=== PATIENT | female | born 1950 | race Caucasian/White ===

== ENCOUNTER → 2016-04-25 | Outpatient (REF) | payer MEDICARE, OTHER ==
[~2016-04-25] MED LIST: /GLIM2TA; ALDA50TA2; CELE10TA; CELE10TA OR; CEPH25SS PO; FERROUS GLUCONATE PO; FLEEENE4 PR; GLIM1TAB OR; INSULANT; INSULANT SC; LASI40TA; LASI40TA OR; LASI80TA; NADO40TA5 OR; PROT20TA11; PROT20TA11 OR; SPIR50TA2 OR; VITA400C; VITA500T; VITA500T OR; VITAMIN D PO; VITAMIN D50000 UNT; VITAMIN E PO; XIFAXAN; XIFAXAN PO; [UNRECOGNIZED DRUG - CODE]; ferrous gluconate
[2016-04-25 18:33] LABS: ALBUMIN 3.4 GM/DL (3.2-5.2); ALBUMIN/GLOBULIN RATIO 1.26 (1.00-1.93); ALKALINE PHOSPHATASE 104 U/L (45-117); ALT/SGPT 36 U/L (12-78); ANION GAP 10 MEQ/L (8-16); AST/SGOT 31 U/L (15-37); BILIRUBIN,TOTAL 1.8 MG/DL (0.2-1.0); BLOOD UREA NITROGEN 9 MG/DL (7-18); CALCIUM LEVEL 8.8 MG/DL (8.8-10.2); CARBON DIOXIDE LEVEL 29 MEQ/L (21-32); CHLORIDE LEVEL 103 MEQ/L (98-107); CHOLESTEROL LEVEL 176 MG/DL (<200); CREATININE FOR GFR 0.85 MG/DL (0.55-1.02); GLOMERULAR FILTRATION RATE > 60.0 (>45); GLUCOSE, FASTING 176 MG/DL (80-110); POTASSIUM SERUM 4.1 MEQ/L (3.5-5.1); SODIUM LEVEL 142 MEQ/L (136-145); TOTAL PROTEIN 6.1 GM/DL (6.4-8.2); TRIGLYCERIDES LEVEL 94 MG/DL (<150)
== END ==
LOC: M SFHCCLAY 10:38
PROVIDERS: ATTEND Family Medicine
DX: K74.60 Unspecified cirrhosis of liver (principal); E07.9 Disorder of thyroid, unspecified; E11.65 Type 2 diabetes mellitus with hyperglycemia

== ENCOUNTER → 2016-07-24 | Outpatient (CLI) | payer MEDICARE, OTHER ==
--- NOTE | 2016-07-24 12:10 | REP ---
COMPLETE ABDOMINAL SONOGRAPHY WITH UPPER ABDOMINAL VISCERAL DOPPLER ASSESSMENT: HISTORY: Cirrhosis. Portal hypertension. FINDINGS: Scanning through right upper quadrant of the abdomen shows a coarse texture nodular appearing liver without evidence of hepatic mass lesion. Common bile duct is normal measuring 0.7 cm in greatest diameter. A TIPS shunt is visible in the liver. Aneurysmal dilation of the main portal vein is again seen measuring 4.0 x 3.4 cm transverse. Limited views of the pancreas show no abnormality. The spleen is enlarged measuring 15.8 x 16.3 x 9.0 cm. It contains a few calcifications. There is some vascular calcification in the splenic hilus. Renal cortical echogenicity pattern is normal and contours are smooth bilaterally. Right kidney measures 10.9 x 4.8 x 4.6 cm. Left renal dimensions are 12.2 x 4.2 x 4.2 cm. Normal caliber aorta is seen at the bifurcation 2.6 cm. The aorta is obscured more proximally. There is a trace of free fluid adjacent the left lobe of the liver. Scan quality is inhibited to some degree by patient body habitus and limited scanning windows. VISCERAL DOPPLER ASSESSMENT: Hepatic veins are not well visualized secondary to patient body habitus. The normal direction of visceral venous flow is seen. Splenic vein peak flow velocity is 25.4 cm/s. Superior mesenteric vein flow velocity is 23.1 cm/s. Venous velocity in the main portal vein is measured at 38.9 cm/s. Peak systolic flow velocity in the hepatic artery is measured at 117 0.3 cm/s. Flow is observed in the TIPS consistent with patency. The proximal tips flow velocity is slightly higher than previous and 72.6 cm/s, previously 51 cm/s. At mid shunt, TIPS flow velocity is recorded at 143.0 cm/s, previously 165. The distal tips flow velocity today is 181.4 cm/s, previously 115. IMPRESSION: TIPS is patent with slightly elevated flow velocities as above. A main portal vein aneurysm is again noted unchanged. Signed by Bon Wells MD 07/24/2016 03:38 P
== END ==
LOC: M RAD 09:16
PROVIDERS: ATTEND Internal Medicine Gastroenterology
DX: K74.60 Unspecified cirrhosis of liver (principal); K76.6 Portal hypertension; I86.8 Varicose veins of other specified sites

== ENCOUNTER → 2016-07-25 | Outpatient (REF) | payer MEDICARE, OTHER ==
[2016-07-25 12:47] LABS: INR 1.12
[2016-07-25 12:53] LABS: BASO % 0.8 % (0.0-1.0); EOS # 0.3 K/mm3 (0.0-0.50); EOS % 6.7 % (0.0-3.0); LARGE UNSTAINED CELL % 0.9 % (0.0-4.0); LYMPH # 0.5 K/mm3 (1.5-4.5); LYMPH % 9.7 % (24.0-44.0); MEAN CORPUSCULAR HGB CONC 34.6 g/dl (32.0-36.5); MEAN CORPUSCULAR VOLUME 83.9 fl (80.0-96.0); MONO # 0.3 K/mm3 (0.0-0.8); NEUTROPHILS # 3.6 K/mm3 (1.8-7.7); NEUTROPHILS % 75.8 % (36.0-66.0); RED CELL DISTRIBUTION WIDTH 16.1 % (11.5-14.5); WHITE BLOOD COUNT 4.7 K/mm3 (4.0-10.0)
[2016-07-25 13:02] LABS: PLATELET COUNT, AUTOMATED 74 k/mm3 (150-450)
[2016-07-25 13:04] LABS: ADD MORPHOLOGY? NO
[2016-07-25 14:02] LABS: ALBUMIN 3.5 GM/DL (3.2-5.2); ALBUMIN/GLOBULIN RATIO 1.4 (1.00-1.93); BILIRUBIN,DIRECT 0.6 MG/DL (0.0-0.2); BILIRUBIN,TOTAL 1.7 MG/DL (0.2-1.0); CALCIUM LEVEL 9.2 MG/DL (8.8-10.2); CREATININE FOR GFR 1.03 MG/DL (0.55-1.02); GLOMERULAR FILTRATION RATE 57.3 (>45); PHOSPHORUS LEVEL 2.3 MG/DL (2.5-4.9); POTASSIUM SERUM 3.8 MEQ/L (3.5-5.1)
== END ==
LOC: M LABDRAWC 11:45
PROVIDERS: ATTEND Internal Medicine Gastroenterology
DX: K74.60 Unspecified cirrhosis of liver (principal)

== ENCOUNTER → 2016-10-02 | Outpatient (CLI) | payer MEDICARE, OTHER ==
--- NOTE | 2016-10-02 15:04 | REPMRS ---
Patient History The patient states she had a clinical breast exam in 09/2016. Patient is postmenopausal. Family history of breast cancer in maternal aunt at age 62 and colorectal cancer in maternal cousin at age 42. Taking estrogen for 12 years. Digital Woman Screen Mammo: October 02, 2016 - Exam #: [id number] Bilateral CC and MLO view(s) were taken. Technologist: Lynn Gonzalez, Technologist Prior study comparison: September 28, 2015, digital woman screen mammo performed at [facility]. July 06, 2014, bilateral digital mammo screening bilat, performed at [facility]. May 20, 2013, bilateral digital mammo screening bilat, performed at [facility]. FINDINGS: There are scattered fibroglandular densities. There has been no change in the appearance of the mammogram from the prior studies. There is a mild amount of scattered fibroglandular density which is fairly symmetric. There is no interval development of dominant mass, architectural distortion, or clustered microcalcification suggestive of malignancy. ASSESSMENT: BI-RADS/ACR category 1 mammogram. Negative. Recommendation Routine screening mammogram in 1 year (for women over age 40). This mammogram was interpreted with the aid of an FDA-approved computer-aided dectection system. Electronically Signed By: Tima Wells MD 10/02/16 [id number]
== END ==
LOC: M WHC 12:53
PROVIDERS: ATTEND Advanced Practice Midwife
DX: Z12.31 Encounter for screening mammogram for malignant neoplasm of breast (principal)

== ENCOUNTER → 2016-10-16 | Outpatient (REF) | payer MEDICARE, OTHER ==
[2016-10-16 18:16] LABS: ALBUMIN 3.4 GM/DL (3.2-5.2); ALBUMIN/GLOBULIN RATIO 1.21 (1.00-1.93); ALKALINE PHOSPHATASE 119 U/L (45-117); ALT/SGPT 26 U/L (12-78); ANION GAP 9 MEQ/L (8-16); AST/SGOT 30 U/L (15-37); BILIRUBIN,TOTAL 1.9 MG/DL (0.2-1.0); BLOOD UREA NITROGEN 9 MG/DL (7-18); CALCIUM LEVEL 8.6 MG/DL (8.8-10.2); CARBON DIOXIDE LEVEL 28 MEQ/L (21-32); CHLORIDE LEVEL 105 MEQ/L (98-107); CHOLESTEROL LEVEL 178 MG/DL (<200); CREATININE FOR GFR 0.92 MG/DL (0.55-1.02); GLOMERULAR FILTRATION RATE > 60.0 (>45); GLUCOSE, FASTING 106 MG/DL (80-110); POTASSIUM SERUM 3.6 MEQ/L (3.5-5.1); SODIUM LEVEL 142 MEQ/L (136-145); TOTAL PROTEIN 6.2 GM/DL (6.4-8.2); TRIGLYCERIDES LEVEL 88 MG/DL (<150)
[2016-10-16 18:32] LABS: BASO # 0.1 K/mm3 (0.0-0.2); BASO % 0.8 % (0.0-1.0); EOS # 0.4 K/mm3 (0.0-0.50); EOS % 6.1 % (0.0-3.0); LARGE UNSTAINED CELL # 0.1 K/mm3 (0.0-0.4); LARGE UNSTAINED CELL % 1.1 % (0.0-4.0); LYMPH # 0.7 K/mm3 (1.5-4.5); LYMPH % 10.2 % (24.0-44.0); MEAN CORPUSCULAR HEMOGLOBIN 29.4 pg (27.0-33.0); MEAN CORPUSCULAR VOLUME 84.2 fl (80.0-96.0); MONO # 0.4 K/mm3 (0.0-0.8); MONO % 5.9 % (0.0-5.0); NEUTROPHILS # 5.4 K/mm3 (1.8-7.7); PLATELET COUNT, AUTOMATED 112 k/mm3 (150-450); RED CELL DISTRIBUTION WIDTH 16.4 % (11.5-14.5); WHITE BLOOD COUNT 7.1 K/mm3 (4.0-10.0)
[2016-10-16 22:12] LABS: ADD MORPHOLOGY? YES
[2016-10-16 22:13] LABS: ANISOCYTOSIS 2+; MICROCYTOSIS 1+
== END ==
LOC: M SFHCCLAY 10:55
PROVIDERS: ATTEND Family Medicine
DX: K74.60 Unspecified cirrhosis of liver (principal); E11.65 Type 2 diabetes mellitus with hyperglycemia; E07.9 Disorder of thyroid, unspecified; N39.0 Urinary tract infection, site not specified
CPT/HCPCS: 80053; 80061; 81002; 82140; 83036; 84443; 85025; 87088; 87186; G0463

== ENCOUNTER → 2016-10-23 | Outpatient (REF) | payer MEDICARE, OTHER | LOC: M SFHCCLAY 14:22 | PROVIDERS: ATTEND Family Medicine | DX: R30.0 Dysuria (principal); Z53.8 Procedure and treatment not carried out for other reasons ==

== ENCOUNTER → 2016-12-17 | Outpatient (REF) | payer MEDICARE, OTHER ==
[~2016-12-17] MED LIST changes: +ESTR1CRE PV; +INSUH10VL SC; +KETO2CR TOP; +LACT10SO3 PO; +TRES1INJ SC
== END ==
LOC: M SFHCCLAY 10:31
PROVIDERS: ATTEND Family Medicine
DX: N39.0 Urinary tract infection, site not specified (principal)
CPT/HCPCS: 81002; 87086; G0463

== ENCOUNTER → 2017-01-01 | Outpatient (REF) | payer MEDICARE, OTHER ==
[2017-01-04 00:08] LABS: Candida species Negative (Negative); Gardnerella vaginalis Negative (Negative); Trichamonas vaginalis Negative (Negative)
== END ==
LOC: M SMT 17:01
PROVIDERS: ATTEND Nurse Practitioner Women's Health
DX: R30.0 Dysuria (principal)
CPT/HCPCS: 81001; 87086; 87109; 87480; 87510; 87660; G0463

== ENCOUNTER → 2017-01-15 | Outpatient (CLI) | payer MEDICARE, OTHER ==
--- NOTE | 2017-01-15 12:07 | REP ---
COMPLETE ABDOMINAL SONOGRAPHY AND HEPATIC VISCERAL DOPPLER ASSESSMENT: History: Cirrhosis of the liver with alcohol. Portal hypertension. Comparison sonography July 24, 2016. The most recent prior CT study of the abdomen is from May 22, 2010. The patient has a TIPS shunt. Findings: Image quality is technically quite poor. No focal liver lesion is seen. The liver is not well visualized sonographically. Common bile duct is normal at 0.9 cm in greatest diameter post cholecystectomy. The spleen is mildly enlarged measuring 15 x 14.7 x 9.4 cm. No focal splenic lesion is seen. No ascites is seen. Medial to the spleen in the left upper quadrant in the region of the stomach is a possible mass. Gastric wall thickening is a possibility although no peristalsis was seen. This is incompletely visualized. It appears to be above the kidney. Consider CT. A main portal vein aneurysm is seen just above the rochelle splenic confluence as before. This measures 6.9 x 5.0 x 4.1 cm. Renal cortical echogenicity pattern is normal and contours are smooth bilaterally. The right kidney measures 10.4 x 6.8 x 5.4 cm. Left renal dimensions are 12.6 x 5.1 x 6.0 cm. Visceral Doppler flow assessment: The non-aneurysmal segment main portal vein is 21 mm. The TIPS shunt is patent by color Doppler and spectral Doppler interrogation with main portal vein end of the TIPS shunt flow velocity 122 cm/sec, mid shunt velocity 127 cm/sec, and hepatic vein and flow velocity 103 cm/sec. This appears to be stable from priors. Main portal vein aneurysm may be slightly larger. Scan quality is inhibited. Peak systolic flow velocity in the hepatic artery is recorded at 113 cm/sec. Resistive index is 0.8. Portal vein flow velocity 36 cm/sec. Splenic vein flow velocity 25 cm/sec. Other hepatic vessels could not be assessed technically. Impression: 1. Technically poor image quality. TIPS shunt remains patent and stable. There is a 6.9 cm main portal vein aneurysm again seen. 2. Question mass left upper quadrant medial to the spleen and above the kidney versus gastric wall thickening. Consider repeat CT study. Signed by Bon Wells MD 01/15/2017 05:28 P
== END ==
LOC: M RAD 08:41
PROVIDERS: ATTEND Internal Medicine Gastroenterology
DX: K76.6 Portal hypertension (principal); K74.60 Unspecified cirrhosis of liver

== ENCOUNTER 2017-02-18 08:32 | Day surgery (SDC) | payer MEDICARE, OTHER ==
[~2017-02-18] VITALS: Ht 167.6 cm; Wt 127.0 kg
[2017-02-18] MEDS ORDERED: NS 1,000 ML IV ONE (08:45)
[2017-02-18] MEDS ORDERED: LIDOCAINE 2% INJ 100 MG/5 ML SDV (FOR ANES.) As Ordered ONE (10:15)
[2017-02-18] MEDS ORDERED: PROPOFOL 200 MG/20 ML VIAL As Ordered ONE (10:15)
--- NOTE | 2017-02-18 10:35 | ROOR ---
Patient Name: Bakari Garcia Procedure Date: 02/18/2017 10:10 AM Date of : 1950 Age: 66 Room: [facility] Gender: Female Note Status: Finalized Procedure: Upper Endoscopy + Endoloop +Biopsies Indications: Abnormal CT of the GI tract, Abnormal ultrasound of the GI tract Providers: Vishal Ruiz MD Referring MD: ELSA FELIPE DO Requesting Provider: Medicines: Monitored Anesthesia Care Complications: No immediate complications. Procedure: Pre-Anesthesia Assessment: - The heart rate, respiratory rate, oxygen saturations, blood pressure, adequacy of pulmonary ventilation, and response to care were monitored throughout the procedure. The Endoscope was introduced through the mouth, and advanced to the second part of duodenum. The upper GI endoscopy was accomplished without difficulty. The patient tolerated the procedure well. Findings: The Z-line was regular and was found 35 cm from the incisors. A single medium pedunculated and sessile polyp with no bleeding and no stigmata of recent bleeding was found in the cardia. One ligature was successfully placed. This was done to prevent bleeding. Biopsies were taken with a cold forceps for histology. Moderate portal hypertensive gastropathy was found in the entire examined stomach. The exam of the duodenum was otherwise normal. Impression: - Z-line regular, 35 cm from the incisors. - A single gastric polyp. Ligated. Biopsied. - Portal hypertensive gastropathy. - The examination was otherwise normal. Recommendation: - Await pathology results. Vishal Ruiz MD Vishal Ruiz MD 02/18/2017 10:35:28 AM This report has been signed electronically. Number of Addenda: 0 Note Initiated On: 02/18/2017 10:10 AM Estimated Blood Loss: Estimated blood loss: none.
[2017-02-18 10:55] VITALS: BP 108/58
== END 2017-02-18 11:07 | disposition home or self-care (01) ==
LOC: M OPP 08:32
PROVIDERS: ATTEND Internal Medicine Gastroenterology
DX: K31.7 Polyp of stomach and duodenum (principal); K31.89 Other diseases of stomach and duodenum; I85.00 Esophageal varices without bleeding; R93.3 Abnormal findings on diagnostic imaging of other parts of digestive tract; K74.69 Other cirrhosis of liver; E11.9 Type 2 diabetes mellitus without complications; R01.1 Cardiac murmur, unspecified; I10 Essential (primary) hypertension; F41.9 Anxiety disorder, unspecified; M54.9 Dorsalgia, unspecified; Z79.4 Long term (current) use of insulin; Z79.899 Other long term (current) drug therapy

== ENCOUNTER → 2017-05-03 | Outpatient (REF) | payer MEDICARE, OTHER | LOC: M SFHCCLAY 11:09 | DX: D69.6 Thrombocytopenia, unspecified (principal); E11.65 Type 2 diabetes mellitus with hyperglycemia; K74.60 Unspecified cirrhosis of liver; E07.9 Disorder of thyroid, unspecified; Z53.9 Procedure and treatment not carried out, unspecified reason ==

== ENCOUNTER → 2017-05-06 | Outpatient (REF) | payer MEDICARE, OTHER ==
[2017-05-06 17:32] LABS: AMMONIA 132 uMOL/L (<32)
[2017-05-06 17:36] LABS: BASO # 0.1 10^3/uL (0.0-0.2); BASO % 0.9 % (0.0-1.0); EOS # 0.5 10^3/uL (0.0-0.50); EOS % 9.7 % (0.0-3.0); HEMATOCRIT 35.2 % (36.0-47.0); HEMOGLOBIN 12.1 g/dl (12.0-16.0); IMMATURE GRANULOCYTE % 0.2 % (0-0); LYMPH # 0.6 10^3/uL (1.5-4.5); LYMPH % 11.7 % (24.0-44.0); MEAN CORPUSCULAR HGB CONC 34.4 g/dl (32.0-36.5); MEAN CORPUSCULAR VOLUME 84.4 fl (80.0-96.0); MONO # 0.3 10^3/uL (0.0-0.8); MONO % 6.3 % (0.0-5.0); NEUTROPHILS # 3.8 10^3/uL (1.8-7.7); NEUTROPHILS % 71.2 % (36.0-66.0); RED BLOOD COUNT 4.17 10^6/uL (4.00-5.40); RED CELL DISTRIBUTION WIDTH 15.8 % (11.5-14.5); WHITE BLOOD COUNT 5.3 10^3/uL (4.0-10.0)
[2017-05-06 17:39] LABS: ALBUMIN 3.4 GM/DL (3.2-5.2); ALBUMIN/GLOBULIN RATIO 1.31 (1.00-1.93); ALKALINE PHOSPHATASE 100 U/L (45-117); ALT/SGPT 22 U/L (12-78); ANION GAP 6 MEQ/L (8-16); AST/SGOT 31 U/L (7-37); BILIRUBIN,TOTAL 1.7 MG/DL (0.2-1.0); BLOOD UREA NITROGEN 10 MG/DL (7-18); CALCIUM LEVEL 8.7 MG/DL (8.8-10.2); CARBON DIOXIDE LEVEL 32 MEQ/L (21-32); CHLORIDE LEVEL 106 MEQ/L (98-107); CHOLESTEROL LEVEL 171 MG/DL (<200); CREATININE FOR GFR 0.88 MG/DL (0.55-1.30); GLOMERULAR FILTRATION RATE > 60.0 (>45); GLUCOSE, FASTING 116 MG/DL (70-100); HDL CHOLESTEROL 83 MG/DL (>40); LDL CHOLESTEROL 73.4 MG/DL (<100); NON-HDL-C 88 MG/DL; SODIUM LEVEL 144 MEQ/L (136-145); TRIGLYCERIDES LEVEL 73 MG/DL (<150)
[2017-05-06 17:40] LABS: ESTIMATED AVERAGE GLUCOSE 154 MG/DL (60-110)
[2017-05-06 17:50] LABS: PLATELET COUNT, AUTOMATED 75 10^3/uL (150-450)
[2017-05-06 18:14] LABS: PARTIAL THROMBOPLASTIN TIME 33.6 SECONDS (26.8-37.9)
== END ==
LOC: M SFHCCLAY 13:08
DX: K74.60 Unspecified cirrhosis of liver (principal); D69.6 Thrombocytopenia, unspecified; E11.65 Type 2 diabetes mellitus with hyperglycemia; E07.9 Disorder of thyroid, unspecified
CPT/HCPCS: 82140

== ENCOUNTER → 2017-05-30 | Outpatient (CLI) | payer OTHER | LOC: M CLY 15:13 | DX: J40 Bronchitis, not specified as acute or chronic (principal) | CPT/HCPCS: 71046 ==

== ENCOUNTER → 2017-06-06 | Outpatient (REF) | payer MEDICARE, OTHER | LOC: M SFHCCLAY 15:09 | DX: J02.9 Acute pharyngitis, unspecified (principal) | CPT/HCPCS: 87070 ==

== ENCOUNTER → 2017-07-01 | Outpatient (REF) | payer MEDICARE, OTHER ==
[2017-07-01 16:51] LABS: BASO % 0.6 % (0.0-1.0); EOS # 0.4 10^3/uL (0.0-0.50); EOS % 8.8 % (0.0-3.0); HEMATOCRIT 32.8 % (36.0-47.0); HEMOGLOBIN 10.8 g/dl (12.0-16.0); IMMATURE GRANULOCYTE % 0.4 % (0-3.0); LYMPH # 0.4 10^3/uL (1.5-4.5); MEAN CORPUSCULAR HGB CONC 32.9 g/dl (32.0-36.5); MEAN CORPUSCULAR VOLUME 87.9 fl (80.0-96.0); MONO # 0.4 10^3/uL (0.0-0.8); MONO % 7.9 % (0.0-5.0); NEUTROPHILS # 3.4 10^3/uL (1.8-7.7); NEUTROPHILS % 73.3 % (36.0-66.0); RED BLOOD COUNT 3.73 10^6/uL (4.00-5.40); RED CELL DISTRIBUTION WIDTH 15.8 % (11.5-14.5); WHITE BLOOD COUNT 4.7 10^3/uL (4.0-10.0)
[2017-07-01 17:03] LABS: INR 1.21; PROTHROMBIN TIME 15.5 SECONDS (12.4-14.5)
[2017-07-01 17:18] LABS: AMMONIA 103 uMOL/L (<32)
[2017-07-01 17:31] LABS: PLATELET COUNT, AUTOMATED 64 10^3/uL (150-450)
[2017-07-01 17:41] LABS: ALBUMIN 3.2 GM/DL (3.2-5.2); ALBUMIN/GLOBULIN RATIO 1.33 (1.00-1.93); ALKALINE PHOSPHATASE 103 U/L (45-117); ALT/SGPT 23 U/L (12-78); ANION GAP 5 MEQ/L (8-16); AST/SGOT 34 U/L (7-37); BILIRUBIN,DIRECT 0.5 MG/DL (0.0-0.2); BILIRUBIN,TOTAL 1.6 MG/DL (0.2-1.0); BLOOD UREA NITROGEN 10 MG/DL (7-18); CALCIUM LEVEL 9.1 MG/DL (8.8-10.2); CARBON DIOXIDE LEVEL 30 MEQ/L (21-32); CHLORIDE LEVEL 109 MEQ/L (98-107); CREATININE FOR GFR 0.87 MG/DL (0.55-1.30); GLOMERULAR FILTRATION RATE > 60.0 (>45); GLUCOSE, FASTING 171 MG/DL (70-100); PHOSPHORUS LEVEL 3.2 MG/DL (2.5-4.9); POTASSIUM SERUM 4.4 MEQ/L (3.5-5.1); SODIUM LEVEL 144 MEQ/L (136-145); TOTAL PROTEIN 5.6 GM/DL (6.4-8.2)
[2017-07-02 11:05] LABS: ALPHA FETOPROTEIN TUMOR QUANT 2.3 NG/ML (<8.1)
== END ==
LOC: M LABDRAWC 16:19
DX: J40 Bronchitis, not specified as acute or chronic (principal); J32.9 Chronic sinusitis, unspecified; J02.9 Acute pharyngitis, unspecified; R79.1 Abnormal coagulation profile; E11.9 Type 2 diabetes mellitus without complications; Z79.4 Long term (current) use of insulin; K21.9 Gastro-esophageal reflux disease without esophagitis; K76.6 Portal hypertension; K74.69 Other cirrhosis of liver
CPT/HCPCS: 82140

== ENCOUNTER → 2017-07-03 | Outpatient (CLI) | payer MEDICARE, OTHER | LOC: M RAD 09:00 | DX: K76.6 Portal hypertension (principal); K74.69 Other cirrhosis of liver; R16.1 Splenomegaly, not elsewhere classified | CPT/HCPCS: 76700 ==

== ENCOUNTER → 2017-09-16 | Outpatient (REF) | payer MEDICARE, OTHER ==
[2017-09-16 17:14] LABS: ESTIMATED AVERAGE GLUCOSE 143 MG/DL (60-110); HEMOGLOBIN A1c 6.6 %
[2017-09-16 17:33] LABS: ALBUMIN 3.1 GM/DL (3.2-5.2); ALBUMIN/GLOBULIN RATIO 1.35 (1.00-1.93); ALKALINE PHOSPHATASE 86 U/L (45-117); ALT/SGPT 22 U/L (12-78); ANION GAP 8 MEQ/L (8-16); AST/SGOT 33 U/L (7-37); BILIRUBIN,TOTAL 1.9 MG/DL (0.2-1.0); BLOOD UREA NITROGEN 19 MG/DL (7-18); CALCIUM LEVEL 8.9 MG/DL (8.8-10.2); CARBON DIOXIDE LEVEL 28 MEQ/L (21-32); CHLORIDE LEVEL 104 MEQ/L (98-107); CREATININE FOR GFR 1.06 MG/DL (0.55-1.30); GLOMERULAR FILTRATION RATE 55.2 (>45); GLUCOSE, FASTING 216 MG/DL (70-100); IRON (FE) 138 UG/DL (50-170); MAGNESIUM LEVEL 1.8 MG/DL (1.8-2.4); POTASSIUM SERUM 4.9 MEQ/L (3.5-5.1); SODIUM LEVEL 140 MEQ/L (136-145); TOTAL PROTEIN 5.4 GM/DL (6.4-8.2)
[2017-09-16 18:20] LABS: BASO % 0.7 % (0.0-1.0); EOS # 0.3 10^3/uL (0.0-0.50); EOS % 5.6 % (0.0-3.0); HEMATOCRIT 28.2 % (36.0-47.0); HEMOGLOBIN 9.6 g/dl (12.0-15.5); IMMATURE GRANULOCYTE % 0.5 % (0-3.0); LYMPH # 0.6 10^3/uL (1.5-4.5); LYMPH % 9.7 % (24.0-44.0); MEAN CORPUSCULAR HEMOGLOBIN 29.9 pg (27.0-33.0); MEAN CORPUSCULAR VOLUME 87.9 fl (80.0-96.0); MONO # 0.6 10^3/uL (0.0-0.8); MONO % 9.1 % (0.0-5.0); NEUTROPHILS # 4.5 10^3/uL (1.8-7.7); NEUTROPHILS % 74.4 % (36.0-66.0); RED BLOOD COUNT 3.21 10^6/uL (4.00-5.40); RED CELL DISTRIBUTION WIDTH 16.5 % (11.5-14.5); WHITE BLOOD COUNT 6.1 10^3/uL (4.0-10.0)
[2017-09-16 18:28] LABS: PLATELET COUNT, AUTOMATED 76 10^3/uL (150-450)
[2017-09-16 18:32] LABS: IMMATURE PLATELET FRACTION % 6.1 % (0.0-9.6)
== END ==
LOC: M SFHCCLAY 13:51
DX: E11.9 Type 2 diabetes mellitus without complications (principal); D69.6 Thrombocytopenia, unspecified; R25.2 Cramp and spasm; K74.60 Unspecified cirrhosis of liver; E07.9 Disorder of thyroid, unspecified
CPT/HCPCS: 83540

== ENCOUNTER → 2017-10-14 | Outpatient (CLI) | payer MEDICARE, OTHER | LOC: M WHC 12:38 | DX: Z12.31 Encounter for screening mammogram for malignant neoplasm of breast (principal) | CPT/HCPCS: 77067 ==

== ENCOUNTER 2017-10-21 08:21 | Day surgery (SDC) | payer MEDICARE, OTHER ==
[2017-10-21] MEDS: NS 1,000 ML IV (08:55)
[2017-10-21] MEDS ORDERED: fentaNYL 100 MCG/2 ML INJECTION (J3010) As Ordered (10:07)
[2017-10-21] MEDS ORDERED: LIDOCAINE 2% INJ 100 MG/5 ML SDV (FOR ANES.) As Ordered (10:07)
[2017-10-21] MEDS ORDERED: PROPOFOL 500 MG/50 ML VIAL As Ordered (10:07)
== END 2017-10-21 11:02 | disposition home or self-care (01) ==
LOC: M OPP 08:21
DX: K62.5 Hemorrhage of anus and rectum (principal); K64.1 Second degree hemorrhoids; K57.30 Diverticulosis of large intestine without perforation or abscess without bleeding; D50.9 Iron deficiency anemia, unspecified; K92.1 Melena; K31.7 Polyp of stomach and duodenum; K76.6 Portal hypertension; K31.89 Other diseases of stomach and duodenum; K22.8 Other specified diseases of esophagus; R00.2 Palpitations; I10 Essential (primary) hypertension; R01.1 Cardiac murmur, unspecified; R60.0 Localized edema; E11.9 Type 2 diabetes mellitus without complications; Z86.39 Personal history of other endocrine, nutritional and metabolic disease; K57.32 Diverticulitis of large intestine without perforation or abscess without bleeding; Z86.19 Personal history of other infectious and parasitic diseases; K74.60 Unspecified cirrhosis of liver; I85.00 Esophageal varices without bleeding; R18.8 Other ascites; K21.9 Gastro-esophageal reflux disease without esophagitis; R06.02 Shortness of breath; M19.90 Unspecified osteoarthritis, unspecified site; F41.9 Anxiety disorder, unspecified; G47.8 Other sleep disorders; R06.83 Snoring; Z97.8 Presence of other specified devices; Z88.8 Allergy status to other drugs, medicaments and biological substances; Z88.0 Allergy status to penicillin; Z91.018 Allergy to other foods; Z88.2 Allergy status to sulfonamides; Z88.1 Allergy status to other antibiotic agents; Z79.899 Other long term (current) drug therapy; Z79.4 Long term (current) use of insulin; Z80.8 Family history of malignant neoplasm of other organs or systems
CPT/HCPCS: 45378

== ENCOUNTER → 2017-10-22 | Outpatient (REF) | payer MEDICARE, OTHER ==
[2017-10-22 18:15] LABS: FERRITIN 15 NG/ML (8-252); IRON (FE) 186 UG/DL (50-170); PERCENT SATURATION 57.2 % (13.2-45.0); TOTAL IRON BINDING CAPACITY 325 UG/DL (250-450); TOTAL PROTEIN 5.9 GM/DL (6.4-8.2)
[2017-10-22 19:02] LABS: REASON FOR REVIEW RBC MORPHOLOGY; SLIDE REVIEW Report; SOURCE PERIPHERAL SMEAR
[2017-10-23 12:41] LABS: ALBUMIN % 61.1 % (55.8-66.1); ALPHA-2-GLOBULINS 0.54 GM/DL (0.42-0.99); ALPHA-2-GLOBULINS % 9.2 % (7.1-11.8); BETA-1-GLOBULINS % 6.7 % (4.7-7.2); BETA-2-GLOBULINS 0.27 GM/DL (0.19-0.55); BETA-2-GLOBULINS % 4.5 % (3.2-6.5); GAMMA GLOBULIN % 13.5 % (11.1-18.8)
== END ==
LOC: M LAB REF 17:34
DX: D64.9 Anemia, unspecified (principal)
CPT/HCPCS: 83550

== ENCOUNTER → 2017-12-20 | Outpatient (REF) | payer MEDICARE, OTHER ==
[2017-12-20 12:12] LABS: ESTIMATED AVERAGE GLUCOSE 137 MG/DL (60-110); HEMOGLOBIN A1c 6.4 %
== END ==
LOC: M SFHCCLAY 09:29
DX: E11.65 Type 2 diabetes mellitus with hyperglycemia (principal)

== ENCOUNTER → 2017-12-20 | Outpatient (REF) | payer MEDICARE, OTHER ==
[2017-12-20 11:35] LABS: BASO # 0.1 10^3/uL (0.0-0.2); BASO % 0.9 % (0.0-1.0); EOS # 0.3 10^3/uL (0.0-0.50); EOS % 5.5 % (0.0-3.0); HEMATOCRIT 35.1 % (36.0-47.0); IMMATURE GRANULOCYTE % 0.4 % (0-3.0); IMMATURE PLATELET FRACTION % 3.9 % (0.0-9.6); LYMPH # 0.6 10^3/uL (1.5-4.5); LYMPH % 11.3 % (24.0-44.0); MEAN CORPUSCULAR HEMOGLOBIN 28.3 pg (27.0-33.0); MEAN CORPUSCULAR HGB CONC 34.2 g/dl (32.0-36.5); MEAN CORPUSCULAR VOLUME 82.8 fl (80.0-96.0); MONO # 0.5 10^3/uL (0.0-0.8); MONO % 8.3 % (0.0-5.0); NEUTROPHILS % 73.6 % (36.0-66.0); RED BLOOD COUNT 4.24 10^6/uL (4.00-5.40); RED CELL DISTRIBUTION WIDTH 15.9 % (11.5-14.5); WHITE BLOOD COUNT 5.4 10^3/uL (4.0-10.0)
[2017-12-20 11:39] LABS: PLATELET COUNT, AUTOMATED 84 10^3/uL (150-450)
[2017-12-20 11:45] LABS: INR 1.19; PARTIAL THROMBOPLASTIN TIME 30.3 SECONDS (25.4-37.6); PROTHROMBIN TIME 15.3 SECONDS (12.1-14.4)
[2017-12-20 11:53] LABS: AMMONIA 114 uMOL/L (<32)
[2017-12-20 12:06] LABS: ALBUMIN 3.2 GM/DL (3.2-5.2); ALBUMIN/GLOBULIN RATIO 1.14 (1.00-1.93); ALKALINE PHOSPHATASE 100 U/L (45-117); ALT/SGPT 23 U/L (12-78); ANION GAP 6 MEQ/L (8-16); AST/SGOT 30 U/L (7-37); BILIRUBIN,DIRECT 0.5 MG/DL (0.0-0.2); BILIRUBIN,TOTAL 1.4 MG/DL (0.2-1.0); BLOOD UREA NITROGEN 12 MG/DL (7-18); CALCIUM LEVEL 8.7 MG/DL (8.8-10.2); CARBON DIOXIDE LEVEL 30 MEQ/L (21-32); CHLORIDE LEVEL 107 MEQ/L (98-107); CREATININE FOR GFR 0.89 MG/DL (0.55-1.30); GLOMERULAR FILTRATION RATE > 60.0 (>45); GLUCOSE, FASTING 78 MG/DL (70-100); PHOSPHORUS LEVEL 3.6 MG/DL (2.5-4.9); SODIUM LEVEL 143 MEQ/L (136-145)
[2017-12-24 10:09] LABS: ALPHA FETOPROTEIN TUMOR QUANT 3.7 NG/ML (<8.1)
== END ==
LOC: M LABDRAWC 11:20
DX: E11.65 Type 2 diabetes mellitus with hyperglycemia (principal)
CPT/HCPCS: 82140

== ENCOUNTER → 2018-01-01 | Outpatient (REF) | payer MEDICARE, OTHER ==
[2018-01-01 19:05] LABS: FERRITIN 23 NG/ML (8-252)
== END ==
LOC: M LAB REF 17:25
DX: D64.9 Anemia, unspecified (principal)
CPT/HCPCS: 82728

== ENCOUNTER → 2018-01-07 | Outpatient (CLI) | payer MEDICARE, OTHER | LOC: M RAD 09:54 | DX: K74.60 Unspecified cirrhosis of liver (principal); K76.6 Portal hypertension; Z90.49 Acquired absence of other specified parts of digestive tract; R16.1 Splenomegaly, not elsewhere classified; I72.8 Aneurysm of other specified arteries | CPT/HCPCS: 76700 ==

== ENCOUNTER → 2018-04-21 | Outpatient (REF) | payer MEDICARE, OTHER ==
[~2018-04-21] MED LIST changes: +AZEL1SPR3; -CELE10TA OR; +CELE10TA PO; +FERR32TA PO; +FURO40TA2 PO; +MAGN400C PO; +NYST10CR EXT; +PANT40TA3 PO; -PROT20TA11 OR; +PROT20TA11 PO; +SPIR50TA4 PO; +TRIA0.1L EX; +VITA100067 PO; +VITA400C7 PO; +VITA500T88 PO; +XIFA550T PO
[2018-04-21 17:02] LABS: ALBUMIN 3.2 GM/DL (3.2-5.2); ALT/SGPT 23 U/L (12-78); BLOOD UREA NITROGEN 16 MG/DL (7-18); CALCIUM LEVEL 8.9 MG/DL (8.8-10.2); CARBON DIOXIDE LEVEL 28 MEQ/L (21-32); CHLORIDE LEVEL 106 MEQ/L (98-107); CHOLESTEROL LEVEL 158 MG/DL (<200); CHOLESTEROL RISK RATIO 2.225 (<5); CREATININE FOR GFR 0.96 MG/DL (0.55-1.30); GLOMERULAR FILTRATION RATE > 60.0 (>45); GLUCOSE, FASTING 66 MG/DL (70-100); HDL CHOLESTEROL 71 MG/DL (>40); LDL CHOLESTEROL 73 MG/DL (<100); NON-HDL-C 87 MG/DL; POTASSIUM SERUM 4.1 MEQ/L (3.5-5.1); SODIUM LEVEL 142 MEQ/L (136-145); TOTAL PROTEIN 5.7 GM/DL (6.4-8.2); TRIGLYCERIDES LEVEL 68 MG/DL (<150)
[2018-04-21 17:10] LABS: HEMOGLOBIN A1c 5.2 %
[2018-04-21 17:11] LABS: BASO # 0.1 10^3/uL (0.0-0.2); BASO % 1.1 % (0.0-1.0); EOS # 0.5 10^3/uL (0.0-0.50); EOS % 10.6 % (0.0-3.0); HEMATOCRIT 32.6 % (36.0-47.0); HEMOGLOBIN 10.9 g/dl (12.0-15.5); LYMPH # 0.5 10^3/uL (1.5-4.5); LYMPH % 11.1 % (24.0-44.0); MEAN CORPUSCULAR HEMOGLOBIN 29.1 pg (27.0-33.0); MEAN CORPUSCULAR HGB CONC 33.4 g/dl (32.0-36.5); MEAN CORPUSCULAR VOLUME 86.9 fl (80.0-96.0); MONO # 0.4 10^3/uL (0.0-0.8); MONO % 8.2 % (0.0-5.0); NEUTROPHILS # 3.1 10^3/uL (1.8-7.7); NEUTROPHILS % 68.6 % (36.0-66.0); PLATELET COUNT, AUTOMATED 101 10^3/uL (150-450); RED BLOOD COUNT 3.75 10^6/uL (4.00-5.40); WHITE BLOOD COUNT 4.5 10^3/uL (4.0-10.0)
[2018-04-21 17:25] LABS: MALB URINE SIEMENS 25.4 MG/L; MAU/CREAT RATIO 7.7 MCG/MG (0.0-30.0)
[2018-04-21 22:01] LABS: RBC, URINE 0-1 /hpf (0-3); SQUAMOUS EPITHELIAL CELL URINE LARGE AMOUNT /hpf (SMALL AMT)
[2018-04-21 22:02] LABS: AMORPHOUS SEDIMENT, URINE SMALL AMOUNT (NEGATIVE); BACTERIA, URINE MOD AMOUNT; HYALINE CAST, URINE NONE SEEN /lpf (0-1)
[2018-04-22 13:27] LABS: ALBUMIN 3.49 GM/DL (3.29-5.55); ALBUMIN % 61.2 % (55.8-66.1); ALPHA-1-GLOBULINS 0.29 GM/DL (0.17-0.41); ALPHA-2-GLOBULINS 0.57 GM/DL (0.42-0.99); BETA-2-GLOBULINS % 4.4 % (3.2-6.5); GAMMA GLOBULIN % 13.4 % (11.1-18.8)
[2018-04-22 13:28] LABS: BETA-1-GLOBULINS 0.34 GM/DL (0.28-0.60); BETA-2-GLOBULINS 0.25 GM/DL (0.19-0.55); GAMMA GLOBULINS 0.76 GM/DL (0.65-1.58)
== END ==
LOC: M SFHCCLAY 10:19
PROVIDERS: ATTEND Family Medicine
DX: D69.6 Thrombocytopenia, unspecified (principal); E07.9 Disorder of thyroid, unspecified; E11.65 Type 2 diabetes mellitus with hyperglycemia

== ENCOUNTER → 2018-05-15 | Outpatient (CLI) | payer MEDICARE, OTHER ==
[~2018-05-15] MED LIST changes: +CONRAY-43 43% 50ML VIAL (Q9960) As Ordered ONE; +LIDOCAINE 1% MDV 20ML VIAL As Ordered ONE; +methylPREDNISolone SUSP 40 MG/ML (DEPO-medrol) VIAL (J1030) As Ordered ONE
--- NOTE | 2018-05-15 17:51 | REP ---
Right hip injection The procedure was performed under the direct supervision of Dr. Wells. The benefits and risks including but not limited to pain infection and bleeding and anaphylaxis were explained to the patient and informed consent was obtained. The right femoral neck was localized using fluoroscopic guidance. The skin was prepped and draped in a sterile fashion. 1% lidocaine was used as a local anesthetic. Using fluoroscopic guidance a 22-gauge spinal needle was inserted and advanced to the femoral neck. 0.5 ml of Conray 43 was injected to verify placement. 7 ml of a solution containing 5 ml of 1% Xylocaine and 2 ml of Depo - Medrol 40 mg was injected. The needle was then removed. The patient tolerated the procedure well and there were no immediate complications. Less than 6 seconds of fluoro time was utilized for this procedure. Reviewed by ANDREA Campbell 05/15/2018 02:36 P Electronically Signed by Bon Wells MD 05/15/2018 05:43 P
== END ==
LOC: M RADPRO 08:29
PROVIDERS: ATTEND Physician Assistant Surgical
DX: M16.11 Unilateral primary osteoarthritis, right hip (principal)
CPT/HCPCS: 20610; 77002; J1030; Q9960

== ENCOUNTER → 2018-07-16 | Outpatient (CLI) | payer MEDICARE, OTHER ==
[~2018-07-16] MED LIST changes: -/GLIM2TA; +AMAR1TAB5; -CONRAY-43 43% 50ML VIAL (Q9960) As Ordered ONE; -LIDOCAINE 1% MDV 20ML VIAL As Ordered ONE; -TRIA0.1L EX; +TRIA2LOT EX; -methylPREDNISolone SUSP 40 MG/ML (DEPO-medrol) VIAL (J1030) As Ordered ONE
--- NOTE | 2018-07-16 11:10 | REP ---
Doppler evaluation of TIPS shunt: Comparison is 01/15/2017. The known tips shunt is again identified. With color Doppler assessment of the TIPS shunt is patent. TIPS shunt Flow velocities: Proximal 46.3 cm/sec. Mid to 131.3 cm/sec. Distal 122.3 cm/sec. The patient has a known main portal vein aneurysm . The aneurysm today measuring 5.5 x 3.8 cm. It measures 6.0 x 4.2 x 4.5 cm on 07/03/2017. Flow velocity in the main portal vein is 23 mm/sec. The examination is technically difficult because of patient body habitus and bowel gas. The splenic vein, superior mesenteric vein and intrahepatic portal veins are not well demonstrated. Complete abdomen ultrasound: There is a cholecystectomy. There is no intrahepatic biliary duct dilatation. The common biliary duct measures 9.4 mm in diameter which is in the normal range post cholecystectomy. The hepatic parenchyma is diffusely coarsened compatible with hepatocellular disease. The pancreas is obscured by bowel. The spleen is enlarged measuring up to 16.5 cm in diameter. The right kidney measures 10 20 x 4.0 x 4 point centimeters. Left kidney measures 11.3 x 6.5 x 3.5 cm. The kidneys are normal size. There are no renal calculi, masses, cysts or hydronephrosis. The aorta is obscured by bowel. The exam is technically difficult because of bowel gas and patient body habitus. Electronically Signed by Schuyler Britton MD 07/16/2018 11:02 A
== END ==
LOC: M RAD 09:11
PROVIDERS: ATTEND Internal Medicine Gastroenterology
DX: K74.60 Unspecified cirrhosis of liver (principal); I72.8 Aneurysm of other specified arteries; Z90.49 Acquired absence of other specified parts of digestive tract

== ENCOUNTER → 2018-07-17 | Outpatient (REF) | payer MEDICARE, OTHER ==
[2018-07-17 12:50] LABS: BASO % 0.7 % (0.0-1.0); EOS # 0.4 10^3/uL (0.0-0.50); EOS % 6.7 % (0.0-3.0); HEMATOCRIT 35.2 % (36.0-47.0); HEMOGLOBIN 12.2 g/dl (12.0-15.5); LYMPH # 0.4 10^3/uL (1.5-4.5); LYMPH % 6.3 % (24.0-44.0); MEAN CORPUSCULAR HEMOGLOBIN 29.3 pg (27.0-33.0); MEAN CORPUSCULAR HGB CONC 34.7 g/dl (32.0-36.5); MEAN CORPUSCULAR VOLUME 84.6 fl (80.0-96.0); MONO # 0.4 10^3/uL (0.0-0.8); MONO % 7.2 % (0.0-5.0); NEUTROPHILS # 4.5 10^3/uL (1.8-7.7); NEUTROPHILS % 78.7 % (36.0-66.0); RED BLOOD COUNT 4.16 10^6/uL (4.00-5.40); WHITE BLOOD COUNT 5.7 10^3/uL (4.0-10.0)
[2018-07-17 12:57] LABS: PLATELET COUNT, AUTOMATED 88 10^3/uL (150-450)
[2018-07-17 13:00] LABS: INR 1.26
[2018-07-17 13:01] LABS: PARTIAL THROMBOPLASTIN TIME 31.5 SECONDS (25.4-37.6)
[2018-07-17 13:26] LABS: ALBUMIN 3.4 GM/DL (3.2-5.2); BILIRUBIN,DIRECT 0.6 MG/DL (0.0-0.2); BILIRUBIN,TOTAL 1.9 MG/DL (0.2-1.0); CALCIUM LEVEL 8.7 MG/DL (8.8-10.2); CREATININE FOR GFR 1.03 MG/DL (0.55-1.30); GLOMERULAR FILTRATION RATE 56.9 (>45); PHOSPHORUS LEVEL 3.2 MG/DL (2.5-4.9); POTASSIUM SERUM 4.2 MEQ/L (3.5-5.1); TOTAL PROTEIN 5.9 GM/DL (6.4-8.2)
== END ==
LOC: M LAB REF 11:39
PROVIDERS: ATTEND Internal Medicine Gastroenterology
DX: E11.65 Type 2 diabetes mellitus with hyperglycemia (principal); E07.9 Disorder of thyroid, unspecified; K74.60 Unspecified cirrhosis of liver

== ENCOUNTER 2018-09-29 07:30 | Inpatient (IN) | payer MEDICARE, OTHER ==
--- NOTE | 2018-09-26 23:21 | HPE ---
DATE OF PLANNED ADMISSION: 09/29/2018 DATE OF SERVICE: 09/26/2018 ATTENDING PHYSICIAN: Marco A Young MD CHIEF COMPLAINT: Right hip pain. HISTORY OF PRESENT ILLNESS Bakari is a pleasant 67-year-old female with progressively worsening right hip pain and stiffness. She has failed to improve with conservative treatment. She has elected for surgery for her continued symptoms. She has pain with weightbearing activities and her activities of daily living. X-rays of her hip are notable for advanced osteoarthritis of the right hip joint. She has consented for a right total hip arthroplasty with Dr. Evert Young. Medical optimization was performed by Dr. Ruiz and Timbo. ALLERGIES: TETRACYCLINE, SULFA, LEVAQUIN, and AMOXICILLIN. CURRENT MEDICATIONS Ascorbic acid 500 mg once a day, azelastine HCl 0.1% nasal spray, citalopram hydrobromide 10 mg once a day, estradiol 0.1 mg per gram cream apply vaginally three times a week, ferrous gluconate 324 mg tab three times a day, furosemide 40 mg once a day, Humalog 100 units per mL injection 6 units subcutaneously twice a day, ketoconazole apply to topical area twice a day, lactulose 10 grams per 15 mL 3 teaspoons by mouth three times a day, magnesium oxide 400 mg twice a day, pantoprazole 40 mg one twice a day, rifaximin 550 mg twice a day, spironolactone 50 mg twice a day, Tresiba FlexTouch 200 units per mL injection 116 units subcu every morning, vitamin D 1000 units a day, vitamin E 400 units. 800 units by mouth once a day. PAST MEDICAL HISTORY Includes diabetes, liver issues, anxiety and depression. PAST SURGICAL HISTORY Includes tubal ligation, hysterectomy, cholecystectomy and a transjugular intrahepatic portosystemic shunt (TIPS) procedure. SOCIAL HISTORY This woman is retired from [employer]. Does not smoke or drink alcohol. FAMILY HISTORY: Noncontributory. REVIEW OF SYSTEMS This patient denies chest pain, heart palpitations, cough, wheezing, difficulty breathing and shortness of breath. She denies abdominal pain, nausea, vomiting, diarrhea or constipation. She denies recent upper respiratory infection or urinary tract infection and symptoms. She does complain of persistent pain in the right hip and pain with weightbearing activities in the right hip. PHYSICAL EXAMINATION General: She is a well-nourished, well-developed in no acute distress, alert female patient. She ambulates with a moderate limp favoring the right lower extremity. She is using a single-leg cane. Vital signs: She is 63 inches tall, weighs 260 pounds with a temperature of 97.1, blood pressure of 121/87, pulse 62, respirations of 12. Neck was supple without adenopathy or jugular venous distension. Lungs: Clear to auscultation without rales or wheeze throughout. Heart: Regular rate and rhythm. Abdomen: Bowel sounds were present. Extremities: Examination of the hip revealed intact skin. She had decreased range of motion due to pain and stiffness. The leg is neurovascularly intact. LABORATORY DATA Chest x-ray showed no acute cardiopulmonary disease processes. EKG showed sinus rhythm at 66 beats per minute with occasional PVCs. Glucose 167, BUN 14, creatinine 1.00, sodium 138, potassium 4.1. CBC showed a red count of 3.62, hemoglobin of 10.9, hematocrit of 31.2. Red cell distribution of 15.5, platelet count of 80 and a sed rate of 34, otherwise within normal limits. IMPRESSION Symptomatic osteoarthritis of the right hip joint. PLAN Consented for a right total hip arthroplasty by Dr. Evert Young.
[2018-09-29] VITALS (24 sets, daily range): BP systolic 136–186; BP diastolic 60–81; O2SAT 98–99
[~2018-09-29] VITALS: Ht 162.6 cm; Wt 117.3 kg
[~2018-09-29 07:30] MED LIST changes: +INSUHUMDS SC; +VITA-157 PO; +VITAD1000T PO
[2018-09-29] MEDS ORDERED: LIDOCAINE 2% INJ 100 MG/5 ML SDV (FOR ANES.) As Ordered ONE (08:41)
[2018-09-29] MEDS ORDERED: PROPOFOL 200 MG/20 ML VIAL As Ordered ONE (08:41)
[2018-09-29] MEDS ORDERED: ONDANSETRON 4MG/2ML VIAL (J2405) As Ordered ONE (08:44)
[2018-09-29] MEDS ORDERED: dexameTHASONE 4 MG/ML 1ML VIAL (J1100) As Ordered ONE (08:44)
[2018-09-29] MEDS ORDERED: KETAMINE HCL 200 MG/20 ML VIAL As Ordered ONE (09:12)
[2018-09-29] MEDS ORDERED: ceFAZolin 1GM INJ (J0690 PER 500MG) As Ordered ONE (09:32)
[2018-09-29] MEDS ORDERED: ROCURONIUM BROMIDE 50 MG/5 ML VIAL As Ordered ONE (10:12)
[2018-09-29] MEDS ORDERED: MIDAZOLAM INJ 2 MG/2 ML VIAL (J2250) As Ordered ONE (10:13)
[2018-09-29] MEDS ORDERED: fentaNYL 100 MCG/2 ML INJECTION (J3010) As Ordered ONE (10:14)
[2018-09-29] MEDS ORDERED: HYDROmorphone HCL 2 MG/ML 1ML VIAL (J1170) As Ordered ONE (11:47)
[2018-09-29] MEDS ORDERED: METOCLOPRAMIDE INJ 10MG/2ML VIAL (J2765) As Ordered ONE (11:49)
[2018-09-29] MEDS ORDERED: SUGAMMADEX SODIUM 500 MG/5 ML VIAL (BRIDION) As Ordered ONE (12:06)
[2018-09-29] MEDS ORDERED: TRANEXAMIC ACID 100 MG/ML 10ML VIAL As Ordered ONE ×2 (12:16→12:39)
[2018-09-29] MEDS ORDERED: EPINEPHrine INJ 1 MG/ML 1ML AMP As Ordered ONE ×2 (12:16→12:39)
[2018-09-29] MEDS ORDERED: ePHEDrine SULFATE 25 MG/5 ML(5MG/ML) SYRINGE As Ordered ONE (12:46)
[2018-09-29] MEDS ORDERED: GLUCAGON FOR INJ 1 MG VIAL (J1610) SC PRN (13:30)
[2018-09-29] MEDS ORDERED: GLUCOSE 4 GM CHEW TABLET PO PRN (13:30)
[2018-09-29] MEDS ORDERED: LACTULOSE 20 GM/30 ML SYRUP UD PO PRN (13:30)
[2018-09-29] MEDS ORDERED: DEXTROSE 50% 50 ML SYRINGE IV PRN (13:30)
[2018-09-29] MEDS ORDERED: LR 1,000 ML IV SCH ×2 (13:45→14:00)
[2018-09-29] MEDS ORDERED: MORPHINE 1MG/ML IN 0.9% NACL 100ML IV BAG As Ordered ONE (13:46)
--- NOTE | 2018-09-29 13:58 | CR.PDOC ---
General Date of Consultation: Sep 29, 2018 Consultation REASON FOR CONSULTATION/CHIEF COMPLAINT: Presented to [facility] for an elective procedure with orthopedic surgery HISTORY OF PRESENT ILLNESS: Patient is a 67 year old female with a PMHx of IDDM2, Non-alcoholic Cirrhosis, Thrombocytopenia, Anxiety / Depression, GERD who presented to [facility] for an elective procedure with orthopedic surgery. Patient had failed conservative medical management and was scheduled for an elective total right hip arthroplasty with orthopedic surgery. Patient follows Dr. Castorena as an outpatient and was medically cleared for the procedure. Currently she notes that she is sleepy, but not in any significant pain. She denies any CP, SOB or palpitations. Patient is having a difficult time staying away follows anesthesia. ALLERGIES: Please see below. HOME MEDICATIONS: Please see below. PAST MEDICAL HISTORY: IDDM2, Non-alcoholic Cirrhosis, Thrombocytopenia, Anxiety / Depression, GERD PAST SURGICAL HISTORY: Tubal ligation Hysterectomy Cholecystectomy TIPS procedure FAMILY HISTORY: - Reviewed and non-contributory SOCIAL HISTORY: - Denies the use of illicit drug, tobacco and EtOH use as per records - Occupation; Retired from [employer] REVIEW OF SYSTEMS: 10 point review of systems complete, all negative otherwise stated in HPI PHYSICAL EXAMINATION: - Vitals: BP 163/70, HR 76, RR 18, Sat 99%NC2L, Temp 97.0F - General: Lying in bed, Sleepy but awakens with verbal stimuli, - HEENT: NC, AT, PERRLA - CVS: RRR, +S1S2 - Lungs: Fair air entry bilaterally, No wheezing / rales / rhonchi - Abdomen: Soft, Non-distended, Non-tender - Extremities: 1+ pitting edema bilaterally, No calf tenderness - Neuro: No focal motor or sensory deficit - Skin: No visible rashes LABORATORY DATA: Please see below. ASSESSMENT/PLAN: Right hip pain - likely 2/2 osteoarthritis - s/p total right hip arthroplasty (POD#0) - Presented to [facility] for an elective procedure with orthopedic surgery - Received outpatient medical clearance from Dr. Suleman Castorena - Pain control, anticoagulation and physical therapy at the direction of orthopedic surgery Reported blood loss in OR of 300 cc - Baseline Hg of approximately ~11 - Will check CBC Thrombocytopenia - possibly 2/2 cirrhosis - Will check CBC Non-alcoholic Cirrhosis - Physical with evidence of fluid overload at LE - Will resume Furosemide / Spironolactone - Will resume Rifaxamine and Lactulose - Patient follow with Dr. Ruiz as an outpatient IDDM2 - Will start ISS and will start Levemir at an adjusted dose Anxiety / Depression - c/w Citalopram GERD - c/w Protonix DVT prophylaxis - As per orthopedic surgery Vital Signs/I&O Vital Signs Date Time Temp Pulse Resp B/P (MAP) Pulse Ox O2 Delivery O2 Flow Rate FiO2 09/29/18 09:58 97.0 76 18 163/70 (101) 99 Laboratory Data CBC/BMP Laboratory Tests 09/29/18 09:13 Allergies Coded Allergies: allopurinol (Verified Allergy, Severe, uvula swelled, 09/15/18) levofloxacin (Verified Adverse Reaction, Severe, tendons tight, 09/15/18) Sulfa (Sulfonamide Antibiotics) (Verified Adverse Reaction, Intermediate, whoozy, 09/15/18) Tetracyclines (Verified Adverse Reaction, Intermediate, whoozy, 09/15/18) amoxicillin (Verified Adverse Reaction, Intermediate, nausea, 09/15/18) banana (Verified Adverse Reaction, Intermediate, stomach pain, 09/15/18) Home Medications Scheduled Ascorbic Acid (Vitamin C) 500 Mg Tab, 500 MG PO DAILY, (Reported) Azelastine HCl (Azelastine HCl) 0.1 % Spr, Unknown Dose NA PRN, (Reported) Citalopram Hydrobromide (Celexa) 10 Mg Tab, 10 MG PO DAILY for 30 Days, #30 (Reported) Estradiol (Estrace) 0.1 Mg/Gm Cre, 0.1 MG PV 3XW, (Reported) Saturday, Saturday and Saturday Ferrous Gluconate (Ferrous Gluconate) 324 Mg Tab, 324 MG PO TID, (Reported) Furosemide (Furosemide) 40 Mg Tab, 40 MG PO DAILY, (Reported) Insulin Degludec (Tresiba Flextouch U-200) 200 Unit/Ml Inj, 86 UNITS SC QAM, (Reported) Insulin Human Lispro (Humalog) 100 Unit/1 Ml Vial, 6 UNITS SC BID, (Reported) Ketoconazole (Ketoconazole) 2 % Cre, 1 APLCT TOP BID for 7 Days, #30 (Reported) apply to affected area(s) Lactulose (Lactulose) 10 Gm/15 Ml Florina, 3 TSP PO TIDP, (Reported) usually uses 2 times a day Magnesium Oxide (Magnesium) 400 Mg Cap, 400 MG PO DAILY, (Reported) Pantoprazole Sodium (Pantoprazole Sodium) 40 Mg Tab, 40 MG PO BID, (Reported) Rifaximin (Xifaxan) 550 Mg Tab, 550 MG PO BID, (Reported) Spironolactone (Spironolactone) 50 Mg Tab, 50 MG PO BID for 30 Days, #30 (Reported) Vitamin D (Vitamin D3) 1,000 Unit Tablet, 1,000 UNITS PO DAILY, (Reported) Vitamin E (Dl,Tocopheryl Acet) (Vitamin E) 400 Unit Capsule, 800 UNIT PO DAILY, (Reported) RUTHY DRAPER MD Sep 29, 2018 13:58
[2018-09-29 14:00] LABS: BASO # 0.1 10^3/uL (0.0-0.2); BASO % 0.4 % (0.0-1.0); EOS # 0.3 10^3/uL (0.0-0.50); EOS % 2.1 % (0.0-3.0); HEMATOCRIT 31.6 % (36.0-47.0); LYMPH # 0.8 10^3/uL (1.5-4.5); MEAN CORPUSCULAR HGB CONC 34.8 g/dl (32.0-36.5); MEAN CORPUSCULAR VOLUME 86.1 fl (80.0-96.0); MONO # 0.3 10^3/uL (0.0-0.8); MONO % 2.4 % (0.0-5.0); NEUTROPHILS # 11.2 10^3/uL (1.8-7.7); NEUTROPHILS % 86.5 % (36.0-66.0); RED BLOOD COUNT 3.67 10^6/uL (4.00-5.40); WHITE BLOOD COUNT 12.9 10^3/uL (4.0-10.0)
[2018-09-29] MEDS ORDERED: EPIDURAL/PCA KEYS XX PRN (14:00)
[2018-09-29] MEDS ORDERED: ONDANSETRON 4MG/2ML VIAL (J2405) IV PRN ×2 (14:00)
[2018-09-29] MEDS ORDERED: PERCOCET 5MG/325MG TAB PO PRN (14:00)
[2018-09-29] MEDS ORDERED: fentaNYL 100 MCG/2 ML INJECTION (J3010) IV PRN (14:00)
[2018-09-29] MEDS ORDERED: MORPHINE 1MG/ML IN 0.9% NACL 100ML IV BAG IV PRN (14:00)
[2018-09-29] MEDS ORDERED: NALBUPHINE HCL 10 MG/ML AMP (J2300) IV PRN (14:00)
[2018-09-29] MEDS ORDERED: diphenhydrAMINE INJ 50MG/ML VIAL (J1200) IV PRN (14:00)
[2018-09-29] MEDS ORDERED: METOCLOPRAMIDE INJ 10MG/2ML VIAL (J2765) IV PRN (14:00)
[2018-09-29] MEDS ORDERED: NALOXONE INJ 0.4 MG/1 ML VIAL (J2310) IV PRN (14:00)
[2018-09-29] MEDS ORDERED: ACETAMINOPHEN TAB 650MG DOSE (2X325MG) PO PRN (14:00)
[2018-09-29] MEDS ORDERED: FLEET ENEMA PR PRN (14:00)
[2018-09-29 14:01] LABS: PLATELET COUNT, AUTOMATED 95 10^3/uL (150-450)
--- NOTE | 2018-09-29 15:02 | REP ---
Clinical: Status post arthroplasty. Technique: AP and cross-table lateral views. Findings: The patient is status post right hip replacement with normal positioning and appearance to the femoral and acetabular components. Overlying postsurgical changes appreciated. Impression: Satisfactory right hip replacement radiographs. Electronically Signed by Jake Laughlin MD 09/29/2018 02:54 P
[2018-09-29] MEDS ORDERED: NS 1,000 ML IV SCH (16:15)
[2018-09-29] MEDS: CitaloPRAM (CeleXA) 10 MG TABLET PO SCH (16:38)
[2018-09-29] MEDS: FERROUS GLUCONATE 324 MG TAB PO SCH ×2 (16:38→21:19)
[2018-09-29] MEDS: FUROSEMIDE 40 MG TAB PO SCH (16:38)
[2018-09-29] MEDS: ASCORBIC ACID 500 MG TAB PO SCH (16:38)
[2018-09-29] MEDS: HumaLOG INSULIN (NovoLOG) PER UNIT SC SCH ×2 (18:24→21:18)
[2018-09-29] MEDS: rifAXIMin 550 MG TAB (XIFAXAN) PO SCH (21:18)
[2018-09-29] MEDS: PANTOPRAZOLE 40MG TAB (PROTONIX) PO SCH (21:18)
[2018-09-29] MEDS: SPIRONOLACTONE 50 MG TAB PO SCH (21:19)
[2018-09-29] MEDS: AZELASTINE 137MCG NASAL SPY 30 ML (ASTELIN) SCH (21:19)
[2018-09-30 06:00] VITALS: BP 134/55
[2018-09-30] MEDS ORDERED: PERCOCET 5MG/325MG TAB PO PRN (06:00)
[2018-09-30 06:51] LABS: HEMATOCRIT 26.7 % (36.0-47.0); HEMOGLOBIN 9.2 g/dl (12.0-15.5); MEAN CORPUSCULAR HEMOGLOBIN 29.6 pg (27.0-33.0); MEAN CORPUSCULAR HGB CONC 34.5 g/dl (32.0-36.5); MEAN CORPUSCULAR VOLUME 85.9 fl (80.0-96.0); RED BLOOD COUNT 3.11 10^6/uL (4.00-5.40); WHITE BLOOD COUNT 12.9 10^3/uL (4.0-10.0)
[2018-09-30 07:17] LABS: CALCIUM LEVEL 8.1 MG/DL (8.8-10.2); CREATININE FOR GFR 1.11 MG/DL (0.55-1.30); GLOMERULAR FILTRATION RATE 52.2 (>45); MAGNESIUM LEVEL 1.6 MG/DL (1.8-2.4)
[2018-09-30 07:24] LABS: PLATELET COUNT, AUTOMATED 82 10^3/uL (150-450)
[2018-09-30] MEDS ORDERED: MAG SULF 1GM/100ML (MAG RUN) 1 GM in APPROPRIATE DILUENT 1 EA IV ONE (07:30)
[2018-09-30] MEDS: LEVEMIR (INSULIN DETEMIR) 1 UNITS/0.01ML SC SCH (08:03)
[2018-09-30] MEDS: HumaLOG INSULIN (NovoLOG) PER UNIT SC SCH ×4 (08:03→20:44)
[2018-09-30] MEDS: ASCORBIC ACID 500 MG TAB PO SCH (08:04)
[2018-09-30] MEDS: CitaloPRAM (CeleXA) 10 MG TABLET PO SCH (08:04)
[2018-09-30] MEDS: VITAMIN E 400 INTERNATIONAL UNITS CAP PO SCH (08:04)
[2018-09-30] MEDS ORDERED: PERC5TAB12 PO ×2 (08:04→08:09)
[2018-09-30] MEDS: PANTOPRAZOLE 40MG TAB (PROTONIX) PO SCH ×2 (08:04→20:43)
[2018-09-30] MEDS: ASPIRIN 81 MG ENTERIC TAB PO SCH ×2 (08:04→20:43)
[2018-09-30] MEDS: MAGNESIUM OXIDE 400 MG TAB (MAG-OX) PO SCH (08:04)
[2018-09-30] MEDS: VITAMIN D 1,000 INTERNATIONAL UNITS TABLET PO SCH (08:04)
[2018-09-30] MEDS ORDERED: ASPI81TA85 PO (08:04)
[2018-09-30] MEDS: FUROSEMIDE 40 MG TAB PO SCH (08:05)
[2018-09-30] MEDS: SPIRONOLACTONE 50 MG TAB PO SCH ×2 (08:05→20:47)
[2018-09-30] MEDS: rifAXIMin 550 MG TAB (XIFAXAN) PO SCH ×2 (08:05→20:43)
[2018-09-30] MEDS: FERROUS GLUCONATE 324 MG TAB PO SCH ×3 (08:05→20:43)
[2018-09-30] MEDS: AZELASTINE 137MCG NASAL SPY 30 ML (ASTELIN) SCH ×2 (08:06→20:44)
--- NOTE | 2018-09-30 08:52 | RO ---
DATE OF PROCEDURE: 09/29/2018 PREOPERATIVE DIAGNOSIS: Right hip degenerative arthritis. POSTOPERATIVE DIAGNOSIS: Right hip degenerative arthritis. PROCEDURE: Right total hip arthroplasty using a size 52 Gription cup with a neutral 32 liner and a 1.5 x 32 mm head with a #6 standard offset Perry stem made by [employer]. SURGEON: Dr. Marco A Young BALL ENDER: Mr. Ameya Hercules ANESTHESIA: General endotracheal anesthetic. COMPLICATIONS: None. ESTIMATED BLOOD LOSS: 300 mL. FINDINGS: Extensive degenerative arthritis of the hip. SPECIMENS: Femoral head. PROCEDURE: Antibiotics were given intravenously preoperatively, then a successful general endotracheal tube anesthetic was established. She was placed in the lateral decubitus position, right hip uppermost, dominant well padded, especially the peroneal nerve and an axillary roll was utilized. The right hip area was then carefully prepped and draped in the usual sterile fashion. After appropriate time-out, a longitudinal incision was made for a standard anterolateral approach to the hip. Bovie cautery was used to coagulate the crossing vessels. The subdermal tissues were quite deep given the fact that she was morbidly obese but we were able dissect down to the tenor fascia, then divide that line with a skin incision and split the gluteus medius at the anterior one-third posterior two-third junction and dissected down to the underlying gluteus minimus and anterior hip capsule and incising it down until we dissected off the proximal femur as we externally rotated the hip and eventually dislocated it anteriorly. The piriformis fossa was identified. Starter reamer placed, followed with the canal finding reamer, then the lateralizing reamer. Then, we reamed up to a size 6 reamer. The femoral neck osteotomy guide was placed on the femoral canal and the femoral neck osteotomy performed. Then, we broached up to a size 6. We then exposed the acetabulum, performed a labral excision 360 degrees. Meticulous hemostasis was attempted to be obtained at all times. We used a Bovie for the most dissection because of her low platelets, tranexamic acid was intermittently irrigated into the wound to help minimize any soft tissue bleeding. We then began reaming with a 48 mm reamer down to the floor of the acetabulum. Then, we expanded out to 51. The trial 52 cup fit very nicely using the extramedullary guide to help set our version in abduction. We electively to choose that size cup. We irrigated the acetabulum, then placed the real cup in the same position using the guide. The central hole eliminator was placed. Polyethylene was placed. We checked and palpated with a freer elevator that the polyethylene was well seated. We then irrigated out the femoral canal, placed the #6 broach with a standard offset 1.5 head and neck combination and we reduced the hip. She was very stable in flexion internal rotation and extension external rotation. There was very minimal if any telescoping. Thus, I felt this was the appropriate sized construct to use. We removed the trial, scoped, irrigated out the canal once again. Placed the real #6 stem. Dried the trunnion. Placed the 1.5 x 32 ball and irrigated again. Placed tranexamic acid in the depths of wound and reduced the hip. Then, we closed the soft tissue layers individually and anatomically back with several interrupted #1 PDS sutures first the anterior capsule and gluteus minimus, then the gluteus medius and irrigated between layers. Closed the tensor fascia with a combination of #1 PDS sutures and a running #1 Stratafix. Irrigated between layers and then closed the very deep adipose layer and in layers, and then the skin was closed with conrad covered by an Optifoam, dry sterile bulky dressing. She was then turned supine, then awaken from the general endotracheal anesthesia after having tolerated the procedure well and transferred to the recovery room in stable condition. There were no intraoperative complications. Mr. Hercules was critical to the success of this very difficult operation given her large body habitus and morbidly obese body mass index (BMI) with appropriate soft tissue retraction using deep T-Handle Nicolas retractors, helped dislocate and relocate the hip several times in and out of the bag, helped to close the wound, helped to close the wound, helped to position the patient amongst many other tasks to allow me to perform the operation smoothly, efficiently and safely.
--- NOTE | 2018-09-30 10:09 | IPNPDOC ---
Text Note Date of Service The patient was seen on 09/30/18. NOTE Subjective: Patient is a 67 year old female with a PMHx of IDDM2, Non-alcoholic Cirrhosis, Thrombocytopenia, Anxiety / Depression, GERD who presented to [facility] for an elective procedure with orthopedic surgery. Patient had failed conservative medical management and was scheduled for an elective total right hip arthroplasty with orthopedic surgery. Patient follows Dr. Castorena as an outpatient and was medically cleared for the procedure. Patient was seen and examined at the bedside. . Patient reports that she's doing well. Denies chest pain, short of breath, palpitations. Reports that she has been out of bed, but still reports some pain in her right hip. Patient denies any bowel movements or passed gas. Objective: Vitals (See below) General: Lying in bed, no acute distress, comfortable, AAOx3 HEENT: NC, AT CVS: RRR, +S1S2 Lungs: Fair air entry b/l, -w/r/r Abdomen: Soft, ND, NT Extremities: No evidence of any significant edema, - Calf tenderness, R hip in dressing Assessment and plan: Right hip pain - likely 2/2 osteoarthritis - s/p total right hip arthroplasty (POD#1) - Presented to [facility] for an elective procedure with orthopedic surgery - Received outpatient medical clearance from Dr. Suleman Castorena - Pain control, anticoagulation and physical therapy at the direction of orthopedic surgery Normocytic anemia - Reported blood loss in OR of 300 cc - Baseline Hg of approximately ~11 - Hg this morning of approximately 9.2 - No active bleeding noted - Will continue to monitor Thrombocytopenia - possibly 2/2 cirrhosis - No active bleeding noted - Remains stable Non-alcoholic Cirrhosis - Physical with evidence of fluid overload at - c/w Furosemide / Spironolactone - c/w Rifaximin and Lactulose - Patient follow with Dr. Ruiz as an outpatient IDDM2 - c/w ISS and Levemir at an adjusted dose Anxiety / Depression - c/w Citalopram GERD - c/w Protonix DVT prophylaxis - As per orthopedic surgery; currently not on full anticoagulation; c/w ASA 81 on discharge - c/w SCDs while inpatient VS,Fishbone, I+O VS, Fishbone, I+O Laboratory Tests 09/29/18 13:38 Red Blood Count 3.67 L, Mean Corpuscular Volume 86.1, Mean Corpuscular Hemoglobin 30.0, Mean Corpuscular Hemoglobin Concent 34.8, Red Cell Distribution Width 15.9 H, Neutrophils (%) (Auto) 86.5 H, Lymphocytes (%) (Auto) 6.0 L, Monocytes (%) (Auto) 2.4, Eosinophils (%) (Auto) 2.1, Basophils (%) (Auto) 0.4, Neutrophils # (Auto) 11.2 H, Lymphocytes # (Auto) 0.8 L, Monocytes # (Auto) 0.3, Eosinophils # (Auto) 0.3, Basophils # (Auto) 0.1 09/30/18 06:34 Red Blood Count 3.11 L, Mean Corpuscular Volume 85.9, Mean Corpuscular Hemoglobin 29.6, Mean Corpuscular Hemoglobin Concent 34.5, Red Cell Distribution Width 15.9 H, Calcium Level 8.1 L Vital Signs Date Time Temp Pulse Resp B/P (MAP) Pulse Ox O2 Delivery O2 Flow Rate FiO2 09/30/18 08:05 16 09/30/18 06:00 97.9 83 134/55 (81) 100 09/29/18 20:45 Nasal Cannula 2.0 I&O- Last 24 Hours up to 6 AM 09/30/18 06:00 Intake Total 2280 ml Output Total 550 ml Balance 1730 ml RUTHY DRAPER MD Sep 30, 2018 10:09
[2018-09-30 14:15] VITALS: BP 124/57
[2018-09-30] MEDS: PERCOCET 5MG/325MG TAB PO PRN (17:11)
[2018-09-30] MEDS: ONDANSETRON 4 MG TAB (S0181) PO PRN (17:14)
[2018-09-30 17:37] VITALS: O2SAT 95
[2018-09-30 22:00] VITALS: BP 154/74
[2018-10-01 06:00] VITALS: BP 132/56
[2018-10-01 06:55] LABS: HEMATOCRIT 23.8 % (36.0-47.0); HEMOGLOBIN 8.3 g/dl (12.0-15.5); MEAN CORPUSCULAR HEMOGLOBIN 30.3 pg (27.0-33.0); MEAN CORPUSCULAR HGB CONC 34.9 g/dl (32.0-36.5); MEAN CORPUSCULAR VOLUME 86.9 fl (80.0-96.0); RED BLOOD COUNT 2.74 10^6/uL (4.00-5.40); WHITE BLOOD COUNT 10.3 10^3/uL (4.0-10.0)
[2018-10-01 07:00] LABS: PLATELET COUNT, AUTOMATED 65 10^3/uL (150-450)
[2018-10-01 07:10] LABS: CALCIUM LEVEL 7.9 MG/DL (8.8-10.2); CREATININE FOR GFR 1.16 MG/DL (0.55-1.30); GLOMERULAR FILTRATION RATE 49.6 (>45); MAGNESIUM LEVEL 1.9 MG/DL (1.8-2.4); POTASSIUM SERUM 4.1 MEQ/L (3.5-5.1)
[2018-10-01] MEDS: VITAMIN E 400 INTERNATIONAL UNITS CAP PO SCH (09:40)
[2018-10-01] MEDS: ASPIRIN 81 MG ENTERIC TAB PO SCH (09:40)
[2018-10-01] MEDS: VITAMIN D 1,000 INTERNATIONAL UNITS TABLET PO SCH (09:40)
[2018-10-01] MEDS: MAGNESIUM OXIDE 400 MG TAB (MAG-OX) PO SCH (09:41)
[2018-10-01] MEDS: FUROSEMIDE 40 MG TAB PO SCH (09:41)
[2018-10-01] MEDS: SPIRONOLACTONE 50 MG TAB PO SCH (09:41)
[2018-10-01] MEDS: PANTOPRAZOLE 40MG TAB (PROTONIX) PO SCH (09:41)
[2018-10-01] MEDS: FERROUS GLUCONATE 324 MG TAB PO SCH ×2 (09:41→15:36)
[2018-10-01] MEDS: rifAXIMin 550 MG TAB (XIFAXAN) PO SCH (09:41)
[2018-10-01] MEDS: ASCORBIC ACID 500 MG TAB PO SCH (09:41)
[2018-10-01] MEDS: CitaloPRAM (CeleXA) 10 MG TABLET PO SCH (09:41)
[2018-10-01] MEDS: HumaLOG INSULIN (NovoLOG) PER UNIT SC SCH ×2 (09:42→12:52)
[2018-10-01] MEDS: LEVEMIR (INSULIN DETEMIR) 1 UNITS/0.01ML SC SCH (09:43)
[2018-10-01] MEDS: AZELASTINE 137MCG NASAL SPY 30 ML (ASTELIN) SCH (09:43)
--- NOTE | 2018-10-01 11:09 | IPNPDOC ---
Text Note Date of Service The patient was seen on 10/01/18. NOTE Subjective: Patient is a 67 year old female with a PMHx of IDDM2, Non-alcoholic Cirrhosis, Thrombocytopenia, Anxiety / Depression, GERD who presented to [facility] for an elective procedure with orthopedic surgery. Patient had failed conservative medical management and was scheduled for an elective total right hip arthroplasty with orthopedic surgery. Patient follows Dr. Castorena as an outpatient and was medically cleared for the procedure. Patient was seen and examined at the bedside. Patient reports that she has been working with physical therapy. Patient has not yet had a bowel movement, but she does report passingshe denies chest pain, shortness of breath or palpitations. Denies nausea, vomiting or abdominal pain. Objective: Vitals (See below) General: Lying in bed, no acute distress, comfortable, AAOx3 HEENT: NC, AT CVS: RRR, +S1S2 Lungs: Air entry is fair bilaterally, without auscultated evidence of rhonchi, rales or wheezing Abdomen: Soft, nondistended and nontender Extremities: No evidence of any significant edema, - Calf tenderness, R hip in dressing Assessment and plan: Right hip pain - likely 2/2 osteoarthritis - s/p total right hip arthroplasty (POD#2) - Presented to [facility] for an elective procedure with orthopedic surgery - Received outpatient medical clearance from Dr. Suleman Castorena - Pain control, anticoagulation and physical therapy at the direction of orthopedic surgery - Will continue to work with physical therapy Normocytic anemia - Reported blood loss in OR of 300 cc - Baseline Hg of approximately ~11 - Hg has continued to decline; will repeat CBC at 1PM today - No active bleeding noted - Will continue to monitor Thrombocytopenia - possibly 2/2 cirrhosis - Drop in platelet count noted - No active bleeding noted - Will repeat CBC at 1PM today Non-alcoholic Cirrhosis - Physical with evidence of fluid overload at LE - c/w Furosemide / Spironolactone - c/w Rifaximin and Lactulose - Patient follow with Dr. Ruiz as an outpatient IDDM2 - c/w ISS and Levemir at an adjusted dose Anxiety / Depression - c/w Citalopram GERD - c/w Protonix DVT prophylaxis - As per orthopedic surgery; currently not on full anticoagulation; c/w ASA 81 on discharge - c/w SCDs while inpatient Disposition: - Awaiting repeat lab work at 1 PM today VSJorgee, I+O VS, Dov, I+O Laboratory Tests 10/01/18 06:21 Red Blood Count 2.74 L, Mean Corpuscular Volume 86.9, Mean Corpuscular Hemoglobin 30.3, Mean Corpuscular Hemoglobin Concent 34.9, Red Cell Distribution Width 16.4 H, Calcium Level 7.9 L Vital Signs Date Time Temp Pulse Resp B/P (MAP) Pulse Ox O2 Delivery O2 Flow Rate FiO2 10/01/18 06:00 97.9 93 18 132/56 (81) 97 09/30/18 17:37 Room Air 09/30/18 14:11 2.0 I&O- Last 24 Hours up to 6 AM 10/01/18 06:00 Intake Total 2080 ml Output Total 700 ml Balance 1380 ml RUTHY DRAPER MD Oct 01, 2018 11:09
[2018-10-01 13:39] LABS: HEMATOCRIT 28.5 % (36.0-47.0); HEMOGLOBIN 9.8 g/dl (12.0-15.5); MEAN CORPUSCULAR HEMOGLOBIN 29.7 pg (27.0-33.0); MEAN CORPUSCULAR HGB CONC 34.4 g/dl (32.0-36.5); MEAN CORPUSCULAR VOLUME 86.4 fl (80.0-96.0)
[2018-10-01 13:40] LABS: PLATELET COUNT, AUTOMATED 81 10^3/uL (150-450)
[2018-10-01 14:00] VITALS: BP 129/54
[2018-10-01] MEDS: PERCOCET 5MG/325MG TAB PO PRN (15:37)
[2018-10-01] MEDS: ONDANSETRON 4 MG TAB (S0181) PO PRN (15:37)
== END 2018-10-01 16:10 | disposition home or self-care (01) | DRG 470 ==
LOC: M OR 08:51 → M MS5PR 15:25
PROVIDERS: ADMIT Orthopaedic Surgery; ATTEND Orthopaedic Surgery
PROC: 0SR90JA Replacement of Right Hip Joint with Synthetic Substitute, Uncemented, Open Approach (ICD-10-PCS; principal; 2018-09-29 11:30)
DX: M16.11 Unilateral primary osteoarthritis, right hip (principal); Z68.41 Body mass index [BMI] 40.0-44.9, adult; K74.60 Unspecified cirrhosis of liver; D69.59 Other secondary thrombocytopenia; E66.01 Morbid (severe) obesity due to excess calories; D64.9 Anemia, unspecified; Z88.2 Allergy status to sulfonamides; E11.9 Type 2 diabetes mellitus without complications; Z88.0 Allergy status to penicillin; Z88.8 Allergy status to other drugs, medicaments and biological substances; Z79.899 Other long term (current) drug therapy; Z79.84 Long term (current) use of oral hypoglycemic drugs; F41.9 Anxiety disorder, unspecified; F32.9 Major depressive disorder, single episode, unspecified; K21.9 Gastro-esophageal reflux disease without esophagitis; Z91.018 Allergy to other foods

== ENCOUNTER 2018-10-09 15:55 | Emergency (ER) | payer MEDICARE, OTHER ==
[~2018-10-09] VITALS: Ht 162.6 cm; Wt 115.9 kg
[~2018-10-09 15:55] MED LIST changes: +ASPI81TA85 PO; +PERC5TAB12 PO
[2018-10-09 16:48] LABS: BASO % 0.5 % (0.0-1.0); EOS # 0.3 10^3/uL (0.0-0.50); EOS % 5.3 % (0.0-3.0); HEMATOCRIT 24.8 % (36.0-47.0); HEMOGLOBIN 8.1 g/dl (12.0-15.5); LYMPH # 0.5 10^3/uL (1.5-4.5); LYMPH % 7.6 % (24.0-44.0); MEAN CORPUSCULAR HEMOGLOBIN 28.4 pg (27.0-33.0); MEAN CORPUSCULAR HGB CONC 32.7 g/dl (32.0-36.5); MONO # 0.6 10^3/uL (0.0-0.8); MONO % 9.8 % (0.0-5.0); NEUTROPHILS # 4.6 10^3/uL (1.8-7.7); PLATELET COUNT, AUTOMATED 118 10^3/uL (150-450); RED BLOOD COUNT 2.85 10^6/uL (4.00-5.40); WHITE BLOOD COUNT 6.1 10^3/uL (4.0-10.0)
[2018-10-09 18:32] VITALS: BP 125/53
== END 2018-10-09 18:49 | disposition home or self-care (01) ==
LOC: M ED 15:55
DX: Z48.817 Encounter for surgical aftercare following surgery on the skin and subcutaneous tissue (principal); Z96.641 Presence of right artificial hip joint; I10 Essential (primary) hypertension; K21.9 Gastro-esophageal reflux disease without esophagitis; K57.32 Diverticulitis of large intestine without perforation or abscess without bleeding; K74.60 Unspecified cirrhosis of liver; Z79.82 Long term (current) use of aspirin; Z79.4 Long term (current) use of insulin; Z79.899 Other long term (current) drug therapy; Z88.2 Allergy status to sulfonamides; Z88.8 Allergy status to other drugs, medicaments and biological substances; Z88.1 Allergy status to other antibiotic agents; Z88.0 Allergy status to penicillin; Z91.018 Allergy to other foods

== ENCOUNTER 2018-10-12 11:05 | Emergency (ER) | payer MEDICARE, OTHER ==
[~2018-10-12] VITALS: Ht 175.3 cm; Wt 118.2 kg
[2018-10-12 12:30] LABS: BASO % 0.4 % (0.0-1.0); EOS # 0.3 10^3/uL (0.0-0.50); EOS % 5.2 % (0.0-3.0); HEMATOCRIT 25.1 % (36.0-47.0); HEMOGLOBIN 8.2 g/dl (12.0-15.5); LYMPH # 0.3 10^3/uL (1.5-4.5); LYMPH % 5.4 % (24.0-44.0); MEAN CORPUSCULAR HEMOGLOBIN 28.6 pg (27.0-33.0); MEAN CORPUSCULAR HGB CONC 32.7 g/dl (32.0-36.5); MEAN CORPUSCULAR VOLUME 87.5 fl (80.0-96.0); MONO # 0.4 10^3/uL (0.0-0.8); MONO % 7.7 % (0.0-5.0); NEUTROPHILS # 3.9 10^3/uL (1.8-7.7); NEUTROPHILS % 80.5 % (36.0-66.0); PLATELET COUNT, AUTOMATED 107 10^3/uL (150-450); RED BLOOD COUNT 2.87 10^6/uL (4.00-5.40); WHITE BLOOD COUNT 4.8 10^3/uL (4.0-10.0)
[2018-10-12 12:40] LABS: INR 1.34; PROTHROMBIN TIME 16.3 SECONDS (11.8-14.0)
[2018-10-12 13:05] LABS: C REACTIVE PROTEIN QUANTITATIV 1.75 MG/DL (0.00-0.30); CALCIUM LEVEL 8.4 MG/DL (8.8-10.2); GLOMERULAR FILTRATION RATE 58.9 (>45); POTASSIUM SERUM 4.3 MEQ/L (3.5-5.1)
[2018-10-12 13:24] LABS: ERYTHROCYTE SEDIMENTATION RATE 60 mm/hr (0-30)
[2018-10-12 17:04] VITALS: BP 149/65
== END 2018-10-12 17:18 | disposition home or self-care (01) ==
LOC: M ED 12:32
DX: M96.830 Postprocedural hemorrhage of a musculoskeletal structure following a musculoskeletal system procedure (principal); Z96.642 Presence of left artificial hip joint; E11.9 Type 2 diabetes mellitus without complications; F41.9 Anxiety disorder, unspecified; F32.9 Major depressive disorder, single episode, unspecified; K21.9 Gastro-esophageal reflux disease without esophagitis; K74.60 Unspecified cirrhosis of liver; Z79.82 Long term (current) use of aspirin; Z79.4 Long term (current) use of insulin; Z79.899 Other long term (current) drug therapy; Z88.2 Allergy status to sulfonamides; Z88.1 Allergy status to other antibiotic agents; Z88.0 Allergy status to penicillin; Z88.8 Allergy status to other drugs, medicaments and biological substances; Z91.018 Allergy to other foods

== ENCOUNTER → 2018-12-04 | Outpatient (REF) | payer MEDICARE, OTHER ==
[2018-12-04 16:53] LABS: ALBUMIN 3.3 GM/DL (3.2-5.2); ALT/SGPT 21 U/L (12-78); BILIRUBIN,TOTAL 1.5 MG/DL (0.2-1.0); BLOOD UREA NITROGEN 12 MG/DL (7-18); CALCIUM LEVEL 9.2 MG/DL (8.8-10.2); CARBON DIOXIDE LEVEL 31 MEQ/L (21-32); CHLORIDE LEVEL 105 MEQ/L (98-107); CREATININE FOR GFR 0.96 MG/DL (0.55-1.30); GLOMERULAR FILTRATION RATE > 60.0 (>45); GLUCOSE, FASTING 116 MG/DL (70-100); POTASSIUM SERUM 4.4 MEQ/L (3.5-5.1); SODIUM LEVEL 142 MEQ/L (136-145); TOTAL PROTEIN 5.9 GM/DL (6.4-8.2)
[2018-12-04 18:25] LABS: HEMOGLOBIN A1c 5.9 %
== END ==
LOC: M SFHCCLAY 11:28
PROVIDERS: ATTEND Family Medicine
DX: E11.9 Type 2 diabetes mellitus without complications (principal); E07.9 Disorder of thyroid, unspecified

== ENCOUNTER → 2019-01-22 | Outpatient (REF) | payer MEDICARE, OTHER ==
[~2019-01-22] MED LIST changes: +CHOL100029 PO; -VITAD1000T PO
[2019-01-22 16:35] LABS: BASO % 0.6 % (0.0-1.0); EOS # 0.4 10^3/uL (0.0-0.5); EOS % 7.3 % (0.0-3.0); HEMATOCRIT 35.5 % (36.0-47.0); HEMOGLOBIN 12.1 g/dl (12.0-15.5); LYMPH # 0.5 10^3/uL (1.5-5.0); LYMPH % 9.5 % (24.0-44.0); MEAN CORPUSCULAR HEMOGLOBIN 28.9 pg (27.0-33.0); MEAN CORPUSCULAR HGB CONC 34.1 g/dl (32.0-36.5); MEAN CORPUSCULAR VOLUME 84.9 fl (80.0-96.0); MONO # 0.4 10^3/uL (0.0-0.8); MONO % 7.5 % (0.0-5.0); NEUTROPHILS # 3.7 10^3/uL (1.5-8.5); NEUTROPHILS % 74.7 % (36.0-66.0); RED BLOOD COUNT 4.18 10^6/uL (4.00-5.40)
[2019-01-22 16:37] LABS: PLATELET COUNT, AUTOMATED 76 10^3/uL (150-450)
[2019-01-22 16:46] LABS: ALBUMIN 3.3 GM/DL (3.2-5.2); BILIRUBIN,TOTAL 2.4 MG/DL (0.2-1.0); CALCIUM LEVEL 8.8 MG/DL (8.8-10.2); CREATININE FOR GFR 1.02 MG/DL (0.55-1.30); GLOMERULAR FILTRATION RATE 57.4 (>45); POTASSIUM SERUM 4.6 MEQ/L (3.5-5.1); TOTAL PROTEIN 5.7 GM/DL (6.4-8.2)
[2019-01-22 16:47] LABS: INR 1.31; PROTHROMBIN TIME 16.1 SECONDS (11.8-14.0)
[2019-01-22 16:48] LABS: PARTIAL THROMBOPLASTIN TIME 31.9 SECONDS (25.0-38.4)
== END ==
LOC: M LABDRAWC 16:13
PROVIDERS: ATTEND Internal Medicine Gastroenterology
DX: K74.60 Unspecified cirrhosis of liver (principal); D50.9 Iron deficiency anemia, unspecified

== ENCOUNTER → 2019-01-23 | Outpatient (CLI) | payer MEDICARE, OTHER ==
--- NOTE | 2019-01-23 14:30 | REP ---
COMPLETE ABDOMINAL SONOGRAPHY WITH VISCERAL DOPPLER ULTRASOUND: HISTORY: Cirrhosis. Check TIPS patency. Evaluate liver. Comparison CT study, February 07, 2017. SONOGRAPHIC FINDINGS: The gallbladder is surgically absent. Scanning through the right upper quadrant of the abdomen demonstrates coarse, somewhat echogenic liver with no focal liver lesion. Common bile duct is normal measuring 0.7 cm in greatest diameter. The pancreas is obscured by abdominal gas. The spleen is enlarged measuring 17.5 x 15.4 x 7.4 cm. There are echogenic foci in the spleen consistent with granulomas. There is no evidence of ascites. Renal cortical echogenicity pattern is normal and contours are smooth bilaterally. The right kidney measures 10.9 x 5.9 x 5.4 cm. Left renal dimensions are 11.8 x 5.2 x 3.8 cm. VISCERAL DOPPLER ASSESSMENT: Main portal vein is dilated to 19 mm AP dimension at the rochelle hepatis. The rochelle splenic venous confluence is dilated 4.5 x 4.2 x 6.0 cm. The TIPS is patent with flow velocity in the proximal portion of the TIPS 42.7 cm/s, mid TIPS velocity 84.6 cm/s, and distal TIPS velocity 91.2 cm/s. Hepatic arterial peak systolic flow velocity is 71.6 cm/s. Splenic vein flow velocity is 34.3 cm/s. Normal direction of flow. Flow velocity in the main portal vein is 46.9 cm/s. IMPRESSION: The TIPS shunt is patent. 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 No ascites. No focal liver lesion. Splenomegaly. Electronically Signed by Bon Wells MD 01/23/2019 07:41 P
== END ==
LOC: M RAD 10:27
PROVIDERS: ATTEND Internal Medicine Gastroenterology
DX: R16.1 Splenomegaly, not elsewhere classified (principal); Z95.828 Presence of other vascular implants and grafts; K74.60 Unspecified cirrhosis of liver; Z90.49 Acquired absence of other specified parts of digestive tract

== ENCOUNTER → 2019-02-23 | Outpatient (CLI) | payer MEDICARE, OTHER ==
--- NOTE | 2019-02-23 12:06 | REPMRS ---
Patient History The patient states she had a clinical breast exam in 2018. Family history of breast cancer at age 62 in maternal aunt, colorectal cancer at age 42 in maternal cousin. Taking estrogen for 13 years. 3D TOMOSYNTHESIS WAS PERFORMED. [facility] for breast cancer is 4.6%. Digital Mammo Screening Bilat: February 23, 2019 - Exam #: [id number] Bilateral CC and MLO view(s) were taken. Technologist: Rosina Duffy, Technologist Prior study comparison: October 14, 2017, bilateral digital woman screen mammo, performed at [facility]. October 02, 2016, digital woman screen mammo, performed at [facility]. FINDINGS: There are scattered fibroglandular densities. There has been no change in the appearance of the mammogram from the prior studies. There is a mild amount of residual fibroglandular tissue which is fairly symmetric. There is no interval development of dominant mass, architectural distortion, or clustered microcalcification suggestive of malignancy. Assessment: BI-RADS/ACR category 1 mammogram. Negative Mammogram. Recommendation Routine screening mammogram in 1 year (for women over age 40). This mammogram was interpreted with the aid of an FDA-approved computer-aided dectection system. Electronically Signed By: Schuyler Padgett MD 02/23/19 [id number]
== END ==
LOC: M RAD 11:16
PROVIDERS: ATTEND Advanced Practice Midwife
DX: Z12.31 Encounter for screening mammogram for malignant neoplasm of breast (principal)

== ENCOUNTER → 2019-04-29 | Outpatient (REF) | payer MEDICARE, OTHER ==
[2019-04-29 16:47] LABS: BASO # 0.1 10^3/uL (0.0-0.2); BASO % 1.1 % (0.0-1.0); EOS # 0.5 10^3/uL (0.0-0.5); EOS % 8.5 % (0.0-3.0); HEMATOCRIT 39.1 % (36.0-47.0); HEMOGLOBIN 12.9 g/dl (12.0-15.5); LYMPH # 0.6 10^3/uL (1.5-5.0); LYMPH % 10.9 % (24.0-44.0); MEAN CORPUSCULAR HEMOGLOBIN 28.7 pg (27.0-33.0); MEAN CORPUSCULAR VOLUME 86.9 fl (80.0-96.0); MONO # 0.4 10^3/uL (0.0-0.8); MONO % 7.1 % (0.0-5.0); NEUTROPHILS # 3.9 10^3/uL (1.5-8.5); NEUTROPHILS % 71.8 % (36.0-66.0); WHITE BLOOD COUNT 5.4 10^3/uL (4.0-10.0)
[2019-04-29 16:52] LABS: PLATELET COUNT, AUTOMATED 75 10^3/uL (150-450)
[2019-04-29 17:02] LABS: ALBUMIN 3.4 GM/DL (3.2-5.2); BILIRUBIN,TOTAL 1.7 MG/DL (0.2-1.0); CHOLESTEROL RISK RATIO 2.032 (<5); CREATININE FOR GFR 1.04 MG/DL (0.55-1.30); GLOMERULAR FILTRATION RATE 56.1 (>45); POTASSIUM SERUM 4.3 MEQ/L (3.5-5.1); THYROID STIMULATING HORMONE 1.4 uIU/ML (0.358-3.740); TOTAL PROTEIN 5.9 GM/DL (6.4-8.2)
[2019-04-29 17:05] LABS: HEMOGLOBIN A1c 7.4 %
[2019-04-29 17:57] LABS: MALB URINE SIEMENS 22.7 MG/L; MAU/CREAT RATIO 6.9 MCG/MG (0.0-30.0)
== END ==
LOC: M SFHCCLAY 11:28
PROVIDERS: ATTEND Family Medicine
DX: D69.6 Thrombocytopenia, unspecified (principal); E11.9 Type 2 diabetes mellitus without complications; E07.9 Disorder of thyroid, unspecified

== ENCOUNTER → 2019-11-24 | Outpatient (REF) | payer MEDICARE, OTHER ==
[~2019-11-24] MED LIST changes: -ASPI81TA85 PO; +ASPI81TA86 PO; +PANT40TA29 PO; -PANT40TA3 PO
[2020-01-11 21:33] LABS: INR 1.26; PARTIAL THROMBOPLASTIN TIME 35.9 SECONDS (24.2-38.5); PROTHROMBIN TIME 16.1 SECONDS (12.5-14.3)
[2020-01-11 21:57] LABS: BASO # 0.1 10^3/uL (0.0-0.2); BASO % 0.8 % (0.0-1.0); EOS # 0.4 10^3/uL (0.0-0.5); HEMATOCRIT 32.7 % (36.0-47.0); HEMOGLOBIN 11.4 g/dl (12.0-15.5); LYMPH # 0.5 10^3/uL (1.5-5.0); LYMPH % 7.8 % (24.0-44.0); MEAN CORPUSCULAR HEMOGLOBIN 29.7 pg (27.0-33.0); MEAN CORPUSCULAR HGB CONC 34.9 g/dl (32.0-36.5); MEAN CORPUSCULAR VOLUME 85.2 fl (80.0-96.0); MONO # 0.6 10^3/uL (0.0-0.8); MONO % 8.6 % (0.0-5.0); NEUTROPHILS # 4.9 10^3/uL (1.5-8.5); NEUTROPHILS % 76.6 % (36.0-66.0); RED BLOOD COUNT 3.84 10^6/uL (4.00-5.40); WHITE BLOOD COUNT 6.4 10^3/uL (4.0-10.0)
[2020-01-11 22:00] LABS: PLATELET COUNT, AUTOMATED 83 10^3/uL (150-450)
[2020-01-18 03:46] LABS: ALBUMIN 3.3 GM/DL (3.2-5.2); BILIRUBIN,TOTAL 1.8 MG/DL (0.2-1.0); CALCIUM LEVEL 9.6 MG/DL (8.8-10.2); CREATININE FOR GFR 1.08 MG/DL (0.55-1.30); GLOMERULAR FILTRATION RATE 53.5 (>45); POTASSIUM SERUM 4.4 MEQ/L (3.5-5.1); TOTAL PROTEIN 5.9 GM/DL (6.4-8.2)
== END ==
LOC: M LABDRAWC 12:25
PROVIDERS: ATTEND Internal Medicine Gastroenterology
DX: E11.9 Type 2 diabetes mellitus without complications (principal); Z79.899 Other long term (current) drug therapy

== ENCOUNTER → 2019-11-24 | Outpatient (REF) | payer MEDICARE, OTHER ==
[2020-01-18 03:46] LABS: CHOLESTEROL RISK RATIO 2.405 (<5); HEMOGLOBIN A1c 6.2 %
== END ==
LOC: M SFHCCLAY 12:23
PROVIDERS: ATTEND Family Medicine
DX: E11.9 Type 2 diabetes mellitus without complications (principal)

== ENCOUNTER → 2020-01-06 | Outpatient (CLI) | payer MEDICARE, OTHER ==
--- NOTE | 2020-01-13 11:32 | REP ---
RIGHT UPPER QUADRANT SONOGRAPHY HISTORY: Hepatic cirrhosis. COMPARISON SONOGRAPHY: 01/23/2019. FINDINGS: The gallbladder is surgically absent. Right upper quadrant scanning demonstrates coarse liver texture. No hepatic mass lesion is seen. The main portal vein is somewhat dilated measuring 19 mm. Hepatopetal normal direction flow is seen. A patent transjugular intrahepatic portosystemic shunt (TIPS) is observed. Common bile duct is normal post cholecystectomy measuring 1.06 cm. There is no visible ascites. Right kidney measures 10.6 x 4.7 x 5.2 cm in overall dimension and is morphologically intact. IMPRESSION: Coarse liver texture consistent with a history of cirrhosis. Patent transjugular intrahepatic portosystemic shunt (TIPS) shunt. Dilated main portal vein. No evidence of ascites. MTDD
== END ==
LOC: M RAD 09:15
PROVIDERS: ATTEND Internal Medicine Gastroenterology
DX: K74.60 Unspecified cirrhosis of liver (principal); Z96.89 Presence of other specified functional implants

== ENCOUNTER → 2020-04-21 | Outpatient (REF) | payer MEDICARE, OTHER ==
[2020-04-21 17:16] LABS: ALBUMIN 3.5 GM/DL (3.2-5.2); BILIRUBIN,TOTAL 1.7 MG/DL (0.2-1.0); CALCIUM LEVEL 9.6 MG/DL (8.8-10.2); CREATININE FOR GFR 1.15 MG/DL (0.55-1.30); GLOMERULAR FILTRATION RATE 49.8 (>45); POTASSIUM SERUM 3.9 MEQ/L (3.5-5.1)
== END ==
LOC: M SFHCCLAY 11:25
PROVIDERS: ATTEND Family Medicine
DX: E11.9 Type 2 diabetes mellitus without complications (principal)

== ENCOUNTER → 2020-07-11 | Outpatient (CLI) | payer MEDICARE, OTHER ==
[~2020-07-11] MED LIST changes: -VITA-157 PO; +VITAE40CA PO
--- NOTE | 2020-07-12 13:43 | REP ---
INDICATION: CIRRHOSIS OF LIVER. COMPARISON: 01/06/2020 as well as other prior exams. TECHNIQUE: Real-time sonographic evaluation of right for quadrant performed with duplex Doppler evaluation of the portal vasculature. FINDINGS: There are again findings of cirrhosis with diffuse heterogeneous coarsened echotexture of the liver. The patient has had a prior cholecystectomy. There is no definite liver mass. There is mild free fluid around the liver. Main portal vein is dilated up to 23 mm. There is dilatation at the confluence of the splenic vein and portal vein measuring about 6.1 x 5.0 x 4.3 cm, not significantly changed. Patent TIPS shunt is noted, in the proximal aspect peak systolic velocity 60.8 centimeter/second, mid aspect 85 centimeter/second and distally 84.3 centimeters/second. Hepatic veins are not well visualized due to body habitus. Common bile duct measures 12 mm. Main hepatic artery demonstrates peak systolic velocity 62.3 centimeter/second, resistive index 0.78. IMPRESSION: Patent TIPS shunt as discussed above. Dilated portal vein at the confluence with the splenic vein as seen on prior studies, appears stable. Main portal vein 23 mm in diameter, previously approximately 19 mm. <Electronically signed by Schuyler Padgett > 07/12/20 [id number]
== END ==
LOC: M WHC 09:38
PROVIDERS: ATTEND Internal Medicine Gastroenterology
DX: K74.60 Unspecified cirrhosis of liver (principal); Z95.828 Presence of other vascular implants and grafts

== ENCOUNTER → 2020-07-12 | Outpatient (REF) | payer MEDICARE, OTHER ==
[2020-07-12 16:16] LABS: BASO % 0.8 % (0.0-1.0); EOS # 0.3 10^3/uL (0.0-0.5); EOS % 5.7 % (0.0-3.0); HEMATOCRIT 28.6 % (36.0-47.0); HEMOGLOBIN 8.9 g/dl (12.0-15.5); LYMPH # 0.4 10^3/uL (1.5-5.0); LYMPH % 8.1 % (24.0-44.0); MEAN CORPUSCULAR HEMOGLOBIN 27.2 pg (27.0-33.0); MEAN CORPUSCULAR HGB CONC 31.1 g/dl (32.0-36.5); MEAN CORPUSCULAR VOLUME 87.5 fl (80.0-96.0); MONO # 0.5 10^3/uL (0.0-0.8); MONO % 9.3 % (2.0-8.0); NEUTROPHILS # 3.7 10^3/uL (1.5-8.5); NEUTROPHILS % 75.5 % (36.0-66.0); RED BLOOD COUNT 3.27 10^6/uL (4.00-5.40); WHITE BLOOD COUNT 4.9 10^3/uL (4.0-10.0)
[2020-07-12 16:25] LABS: PLATELET COUNT, AUTOMATED 82 10^3/uL (150-450)
[2020-07-12 17:03] LABS: CREATININE FOR GFR 1.29 MG/DL (0.55-1.30); GLOMERULAR FILTRATION RATE 43.6 (>45)
[2020-07-12 17:04] LABS: BILIRUBIN,TOTAL 1.4 MG/DL (0.2-1.0); CALCIUM LEVEL 9.2 MG/DL (8.8-10.2); TOTAL PROTEIN 5.3 GM/DL (6.4-8.2)
[2020-07-12 17:05] LABS: ALBUMIN 3.2 GM/DL (3.2-5.2)
[2020-07-12 17:59] LABS: HEMOGLOBIN A1c 5.5 %
== END ==
LOC: M SFHCCLAY 13:48
PROVIDERS: ATTEND Family Medicine
DX: D69.6 Thrombocytopenia, unspecified (principal); E11.9 Type 2 diabetes mellitus without complications

== ENCOUNTER → 2020-07-12 | Outpatient (REF) | payer MEDICARE, OTHER ==
[2020-07-12 16:24] LABS: INR 1.31; PROTHROMBIN TIME 16.6 SECONDS (12.5-14.3)
[2020-07-12 16:25] LABS: PARTIAL THROMBOPLASTIN TIME 31.2 SECONDS (24.2-38.5); PLATELET COUNT, AUTOMATED 83 10^3/uL (150-450)
== END ==
LOC: M LABDRAWC 15:53
PROVIDERS: ATTEND Internal Medicine Gastroenterology
DX: D69.6 Thrombocytopenia, unspecified (principal); E11.9 Type 2 diabetes mellitus without complications; Z79.899 Other long term (current) drug therapy

== ENCOUNTER → 2020-08-08 | Outpatient (CLI) | payer MEDICARE, OTHER ==
--- NOTE | 2020-08-08 14:43 | REP ---
INDICATION: R06.00 DYSPNEA ON EXERTION. COMPARISON: 09/18/2018 FINDINGS: The superior mediastinal structures are midline. The cardiac silhouette is unremarkable in size, shape, and position. The diaphragmatic surfaces of the lungs are regular, and the costophrenic angles are clear. The pulmonary ortiz are clear. The imaged osseous structures are intact. IMPRESSION: There is no acute cardiopulmonary disease. There is no significant change compared to the prior exam. <Electronically signed by Marcio Love > 08/08/20 [id number]
== END ==
LOC: M CLY 13:45
PROVIDERS: ATTEND Family Medicine
DX: R06.00 Dyspnea, unspecified (principal)
CPT/HCPCS: 71046; G0463

== ENCOUNTER → 2020-08-19 | Outpatient (CLI) | payer MEDICARE, OTHER ==
--- NOTE | 2020-08-22 08:32 | ECHO ---
DATE OF PROCEDURE: 08/19/2020 Age: 69 Gender: Female Height: 165 cm Weight: 129 kg REFERRING PHYSICIAN: Simone Izquierdo D.O. INDICATION: Dyspnea. MEASUREMENTS: IVS 0.8 cm LV 5.7 cm LVPW 0.8 cm LA 4.3 cm Aorta 2.6 cm Left atrium volume index 47 IVC 2.6 cm Mitral E wave velocity 86 cm/s Mitral A wave 102 cm/s E prime septal 7.0 cm/s E prime lateral 9.9 cm/s FINDINGS: This study is of fair technical quality corresponding to the patients body habitus. Underlying sinus rhythm. Left ventricle is borderline dilated, but overall normally contractile. I estimate EF around 60%. No segmental wall motion abnormalities are appreciated. Right ventricle was relatively poorly seen, but it does not appear grossly dilated. There is severe left atrial enlargement. Right atrium was poorly visualized. The aortic valve is sclerotic. There is at least some episcopalian of cusp mobility. There are also mild degenerative abnormalities of the mitral valve with mitral annular calcifications, but mobility of leaflets is preserved. Tricuspid valve appears normal. Pulmonic valve was not well seen. No pericardial effusion is noted. Inferior vena cava is dilated and there is limited collapse with inspiration indicative of elevated central venous pressure. Aortic root and aortic arch were poorly seen. Doppler interrogation of the aortic valve reveals trace insufficiency and mild stenosis with mean gradient 16 mmHg. There is also mild mitral and tricuspid insufficiency. Calculated pulmonary artery pressure is in the 40s corresponding to moderate pulmonary hypertension. Mitral inflow pattern and tissue Doppler imaging of the mitral annulus revealed grade 1 diastolic dysfunction. CONCLUSIONS: 1. Study is of fair technical quality. Underlying sinus rhythm. 2. Mildly dilated left ventricle with overall preserved LV systolic function and grade 1 diastolic dysfunction. 3. Prominent aortic sclerosis resulting in mild stenosis and trace insufficiency. 4. Mild mitral and tricuspid insufficiency. 5. Elevated central venous pressure and likely moderate pulmonary hypertension. MTDD
== END ==
LOC: M CARPUL 14:56
PROVIDERS: ATTEND Family Medicine
DX: R06.00 Dyspnea, unspecified (principal); R00.2 Palpitations

== ENCOUNTER → 2020-08-30 | Outpatient (CLI) | payer MEDICARE, OTHER ==
[2020-08-30 14:50] LABS: BASO % 0.4 % (0.0-1.0); EOS # 0.2 10^3/uL (0.0-0.5); EOS % 3.3 % (0.0-3.0); HEMATOCRIT 27.4 % (36.0-47.0); LYMPH # 0.4 10^3/uL (1.5-5.0); LYMPH % 7.2 % (24.0-44.0); MEAN CORPUSCULAR HEMOGLOBIN 23.7 pg (27.0-33.0); MEAN CORPUSCULAR HGB CONC 29.2 g/dl (32.0-36.5); MEAN CORPUSCULAR VOLUME 81.1 fl (80.0-96.0); MONO # 0.4 10^3/uL (0.0-0.8); NEUTROPHILS # 4.2 10^3/uL (1.5-8.5); NEUTROPHILS % 81.9 % (36.0-66.0); RED BLOOD COUNT 3.38 10^6/uL (4.00-5.40); WHITE BLOOD COUNT 5.2 10^3/uL (4.0-10.0)
[2020-08-30 14:52] LABS: PLATELET COUNT, AUTOMATED 81 10^3/uL (150-450)
[2020-08-30 15:00] LABS: INR 1.31; PROTHROMBIN TIME 16.6 SECONDS (12.5-14.3)
[2020-08-30 15:01] LABS: PARTIAL THROMBOPLASTIN TIME 30.2 SECONDS (24.2-38.5)
[2020-08-30 15:28] LABS: BILIRUBIN,TOTAL 1.1 MG/DL (0.2-1.0); CALCIUM LEVEL 9.4 MG/DL (8.8-10.2); CREATININE FOR GFR 1.09 MG/DL (0.55-1.30); POTASSIUM SERUM 4.1 MEQ/L (3.5-5.1); TOTAL PROTEIN 5.3 GM/DL (6.4-8.2)
== END ==
LOC: M LAB 14:12
PROVIDERS: ATTEND Internal Medicine Gastroenterology
DX: K74.60 Unspecified cirrhosis of liver (principal)

== ENCOUNTER 2020-08-31 11:10 | Outpatient (CLI) | payer MEDICARE, OTHER ==
[2020-08-31] VITALS (10 sets, daily range): BP systolic 141–160; BP diastolic 63–78
[~2020-08-31 11:10] MED LIST changes: +ACETAMINOPHEN TAB 650MG DOSE (2X325MG) PO PRN; +NS 1,000 ML IV SCH; +ONDANSETRON 4MG/2ML VIAL IV PRN
[2020-08-31] MEDS ORDERED: ACETAMINOPHEN TAB 650MG DOSE (2X325MG) PO PRN (11:30)
[2020-08-31] MEDS ORDERED: ONDANSETRON 4MG/2ML VIAL IV PRN (11:30)
[2020-08-31] MEDS ORDERED: NS 1,000 ML IV SCH (11:30)
== END 2020-08-31 16:00 | disposition home or self-care (01) ==
LOC: M INFU 11:10
PROVIDERS: ATTEND Internal Medicine Gastroenterology
DX: D64.9 Anemia, unspecified (principal); Z88.1 Allergy status to other antibiotic agents; Z88.2 Allergy status to sulfonamides
CPT/HCPCS: 36430; P9016

== ENCOUNTER → 2020-09-07 | Outpatient (REF) | payer MEDICARE, OTHER ==
[~2020-09-07] MED LIST changes: -ACETAMINOPHEN TAB 650MG DOSE (2X325MG) PO PRN; -NS 1,000 ML IV SCH; -ONDANSETRON 4MG/2ML VIAL IV PRN
[2020-09-07 17:57] LABS: BASO # 0.1 10^3/uL (0.0-0.2); BASO % 0.7 % (0.0-1.0); EOS # 0.3 10^3/uL (0.0-0.5); EOS % 3.7 % (0.0-3.0); HEMATOCRIT 30.4 % (36.0-47.0); HEMOGLOBIN 8.9 g/dl (12.0-15.5); LYMPH # 0.5 10^3/uL (1.5-5.0); LYMPH % 6.4 % (24.0-44.0); MEAN CORPUSCULAR HEMOGLOBIN 24.6 pg (27.0-33.0); MEAN CORPUSCULAR HGB CONC 29.3 g/dl (32.0-36.5); MONO # 0.6 10^3/uL (0.0-0.8); MONO % 8.4 % (2.0-8.0); NEUTROPHILS # 5.9 10^3/uL (1.5-8.5); NEUTROPHILS % 80.4 % (36.0-66.0); RED BLOOD COUNT 3.62 10^6/uL (4.00-5.40); WHITE BLOOD COUNT 7.4 10^3/uL (4.0-10.0)
[2020-09-07 17:58] LABS: PLATELET COUNT, AUTOMATED 82 10^3/uL (150-450)
== END ==
LOC: M LABDRAWC 16:49
PROVIDERS: ATTEND Internal Medicine Gastroenterology
DX: D64.9 Anemia, unspecified (principal)

== ENCOUNTER → 2020-09-12 | Outpatient (CLI) | payer MEDICARE, OTHER ==
[~2020-09-12] MED LIST changes: +CITA20TA7 PO; +D31000TA2 PO; +PANT-23 PO
--- NOTE | 2020-09-12 15:57 | REPMRS ---
Patient History The patient states she had a clinical breast exam in September 2020. Family history of breast cancer at age 62 in maternal aunt, colorectal cancer at age 42 in maternal cousin. Taking estrogen for 13 years. Patient states no breast complaints. Patient has signed the MRS history sheet Digital Woman Screen Mammo: September 12, 2020 - Exam #: [id number] Bilateral CC and MLO view(s) were taken. Technologist: Jamia James, Technologist Prior study comparison: February 23, 2019, bilateral digital mammo screening bilat, performed at [facility]. October 14, 2017, bilateral digital woman screen mammo performed at [facility]. FINDINGS: The breast tissue is almost entirely fat. Screening. Digital screening (2D) mammography was performed bilaterally in the CC and MLO projections. Additionally, breast tomosynthesis (3D mammography) was performed bilaterally in the CC and MLO projections. Todays exam was compared to the prior exam/exams. By history, the patient has no complaints of a palpable breast abnormality or other significant breast complaints. The breasts are unchanged in size and shape. There are no sharlene-soft tissue densities or spiculated masses. There is no internal architectural distortion. Once again, stable benign appearing calcifications are seen.There are no suspicious sharlene-calcific clusters. Skin thickening or nipple retraction is not present. IMPRESSION: BI-RADS Category 2- Benign Findings. There is no evidence of malignant alteration of the breasts. Followup examination recommended in one year. The [place] volumetric breast density category is A, the breasts are almost entirely fatty. This mammogram was read with the assistance of [place],an FDA approved computer aided detection system for mammography. The lifetime Tyrer-Cuzick score is 4.3 % Negative x-ray reports should not delay surgical consultation if a dominant or clinically suspicious mass is present. Not all breast cancers can be identified by mammography. Therefore, we recommend that you continue to perform regular breast self-examination and physical examination and then promptly contact your physician of any concerns or changes. Adenosis and dense breasts may obscure an underlying neoplasm. Assessment: BI-RADS/ACR category 2 mammogram. Benign Findings. Recommendation Routine screening mammogram of both breasts in 1 year. Electronically Signed By: Marcio Love DO 09/12/20 [id number]
== END ==
LOC: M WHC 14:12
PROVIDERS: ATTEND Advanced Practice Midwife
DX: Z01.419 Encounter for gynecological examination (general) (routine) without abnormal findings (principal); Z12.31 Encounter for screening mammogram for malignant neoplasm of breast; Z92.23 Personal history of estrogen therapy; R92.1 Mammographic calcification found on diagnostic imaging of breast
CPT/HCPCS: 77063; 77067; G0101

== ENCOUNTER → 2020-09-30 | Outpatient (CLI) | payer MEDICARE, OTHER ==
[~2020-09-30] MED LIST changes: -CITA20TA7 PO; -D31000TA2 PO; -PANT-23 PO
--- NOTE | 2020-09-30 15:32 | REP ---
INDICATION: K74.60, K79.6. COMPARISON: 08/08/2020 TECHNIQUE: PA and lateral FINDINGS: The cardiomediastinal silhouette is unchanged. Heart is not enlarged. There is chronic right CP angle blunting status quo. The lung ortiz are stable. No acute patchy parenchymal opacities pleural effusions have developed. There is no change in the osseous structures. IMPRESSION: Stable chest without evidence of acute cardiopulmonary disease. <Electronically signed by Marcio Love > 09/30/20 [id number]
== END ==
LOC: M CLY 14:45
PROVIDERS: ATTEND Internal Medicine Gastroenterology
DX: K74.60 Unspecified cirrhosis of liver (principal); K76.6 Portal hypertension

== ENCOUNTER → 2020-10-06 | Outpatient (CLI) | payer MEDICARE, OTHER ==
[~2020-10-06] MED LIST changes: +CITA20TA7 PO; +D31000TA2 PO
[2020-10-06 16:22] LABS: BASO % 0.5 % (0.0-1.0); EOS # 0.2 10^3/uL (0.0-0.5); EOS % 2.6 % (0.0-3.0); HEMATOCRIT 24.8 % (36.0-47.0); HEMOGLOBIN 7.3 g/dl (12.0-15.5); LYMPH # 0.2 10^3/uL (1.5-5.0); MEAN CORPUSCULAR HEMOGLOBIN 25.2 pg (27.0-33.0); MEAN CORPUSCULAR HGB CONC 29.4 g/dl (32.0-36.5); MEAN CORPUSCULAR VOLUME 85.5 fl (80.0-96.0); MONO # 0.5 10^3/uL (0.0-0.8); MONO % 8.1 % (2.0-8.0); NEUTROPHILS # 5.1 10^3/uL (1.5-8.5); NEUTROPHILS % 84.3 % (36.0-66.0); WHITE BLOOD COUNT 6.1 10^3/uL (4.0-10.0)
[2020-10-06 16:28] LABS: PLATELET COUNT, AUTOMATED 69 10^3/uL (150-450)
[2020-10-06 16:44] LABS: CALCIUM LEVEL 8.1 MG/DL (8.8-10.2); CREATININE FOR GFR 1.32 MG/DL (0.55-1.30); GLOMERULAR FILTRATION RATE 42.5 (>45); POTASSIUM SERUM 3.8 MEQ/L (3.5-5.1)
== END ==
LOC: M WUC 12:44
PROVIDERS: ATTEND Physician Assistant
DX: R06.02 Shortness of breath (principal)

== ENCOUNTER 2020-10-07 15:22 | Inpatient (IN) | payer MEDICARE, OTHER ==
[2020-10-07] VITALS (7 sets, daily range): BP systolic 129–154; BP diastolic 60–81
[~2020-10-07] VITALS: Ht 170.2 cm; Wt 125.9 kg
[~2020-10-07 15:22] MED LIST changes: -CITA20TA7 PO; -D31000TA2 PO
--- NOTE | 2020-10-07 17:11 | REP ---
INDICATION: sob on exertion COMPARISON: 09/30/2020 TECHNIQUE: PA and lateral. FINDINGS: The mediastinum and cardiac silhouette are normal. The lung ortiz are clear and without acute consolidation, effusion, or pneumothorax. The skeletal structures are intact and normal. IMPRESSION: No acute cardiopulmonary process. <Electronically signed by Jake Laughlin > 10/07/20 [id number]
[2020-10-07 17:22] LABS: ALBUMIN 2.6 GM/DL (3.2-5.2); ALT/SGPT 28 U/L (12-78); BILIRUBIN,DIRECT 0.6 MG/DL (0.0-0.2); BILIRUBIN,TOTAL 1.7 MG/DL (0.2-1.0); BLOOD UREA NITROGEN 26 MG/DL (7-18); CALCIUM LEVEL 8.3 MG/DL (8.8-10.2); CARBON DIOXIDE LEVEL 29 MEQ/L (21-32); CHLORIDE LEVEL 104 MEQ/L (98-107); CK-MB VALUE MASS 1.8 NG/ML (<3.6); CPK CREATINE PHOSPHOKINASE 84 U/L (26-192); CREATININE FOR GFR 1.24 MG/DL (0.55-1.30); GLOMERULAR FILTRATION RATE 45.7 (>45); GLUCOSE, FASTING 227 MG/DL (70-100); LIPASE 106 U/L (73-393); MB/CK RELATIVE INDEX 2.14 (< OR =4); POTASSIUM SERUM 3.6 MEQ/L (3.5-5.1); SODIUM LEVEL 140 MEQ/L (136-145); TOTAL PROTEIN 4.9 GM/DL (6.4-8.2); TROPONIN I < 0.02 NG/ML (< 0.10)
[2020-10-07 17:34] LABS: BASO % 0.6 % (0.0-1.0); EOS # 0.2 10^3/uL (0.0-0.5); EOS % 6.2 % (0.0-3.0); HEMATOCRIT 23.9 % (36.0-47.0); LYMPH # 0.3 10^3/uL (1.5-5.0); LYMPH % 9.9 % (24.0-44.0); MEAN CORPUSCULAR HEMOGLOBIN 24.8 pg (27.0-33.0); MEAN CORPUSCULAR HGB CONC 29.3 g/dl (32.0-36.5); MEAN CORPUSCULAR VOLUME 84.8 fl (80.0-96.0); MONO # 0.3 10^3/uL (0.0-0.8); MONO % 10.5 % (2.0-8.0); NEUTROPHILS # 2.3 10^3/uL (1.5-8.5); NEUTROPHILS % 72.2 % (36.0-66.0); RED BLOOD COUNT 2.82 10^6/uL (4.00-5.40); WHITE BLOOD COUNT 3.2 10^3/uL (4.0-10.0)
[2020-10-07 17:35] LABS: PLATELET COUNT, AUTOMATED 58 10^3/uL (150-450)
[2020-10-07] MEDS ORDERED: GLUCOSE 4GM CHEW TABLET PO PRN (18:00)
[2020-10-07] MEDS ORDERED: DEXTROSE 50% 50 ML SYRINGE IV PRN (18:00)
[2020-10-07] MEDS ORDERED: GLUCAGON INJ 1MG VIAL SC PRN (18:00)
[2020-10-07] MEDS ORDERED: ACETAMINOPHEN TAB 650MG DOSE (2X325MG) PO PRN (18:00)
[2020-10-07] MEDS ORDERED: INSUH10VL SC (18:43)
[2020-10-07] MEDS ORDERED: CITA20TA7 PO (18:43)
[2020-10-07] MEDS ORDERED: FURO40TA2 PO (18:43)
[2020-10-07] MEDS ORDERED: D31000TA2 PO (18:43)
--- NOTE | 2020-10-07 19:05 | HPEPDOC ---
[facility] Medical History & Physical Date of Admission Oct 07, 2020 Date of Service: Oct 07, 2020 Attending Physician: CHARO RIOS MD History and Physical CHIEF COMPLAINT: SOB and weakness reported to PCP and found to have Hgb 7.0 HISTORY OF PRESENT ILLNESS: 69 year old W with a PMHx of IDDM2, Non-alcoholic Cirrhosis s/p TIPS, with cirrhosis c/b anemia (baseline ~8) and thrombocytopenia, Anxiety / Depression and GERD who presented to urgent care for SOB, MAGUIRE with poor exercise tolerance and had labs done that showed a Hgb of 7.3 and on being reported to PCP, the PCP recommended presentation the ED. She denies any recent fever, chills, marialuisa chest pain, palpitations, LOC, cough, lower extremity swelling, dysuria, hematuria, nausea, emesis or abdominal pain. She does report some dark stool without marialuisa hematochezia. In the ED, she was hypertensive to SBP 180s and otherwise afebrile and saturating well on room air. WBC was 3.2, hgb 7.1, had been 7.3 yesterday in outpatient labs and 8.9 1 month ago, na 140, k 3.6, Cr 1.24 close to baseline and CXR showed no acute cardiopulmonary process. She is now being admitted for acute on chronic anemia and PT/OT for safe discharge planning. ALLERGIES: Please see below. HOME MEDICATIONS: Please see below. PAST MEDICAL HISTORY: IDDM2, Non-alcoholic Cirrhosis, Anemia, Thrombocytopenia, Anxiety, Depression, GERD, Osteoarthritis PAST SURGICAL HISTORY: Tubal ligation Hysterectomy Cholecystectomy TIPS procedure R hip arthroplasty FAMILY HISTORY: Reviewed and non-contributory SOCIAL HISTORY: Denies the use of illicit drug, tobacco and EtOH REVIEW OF SYSTEMS: 10 point review of systems complete, all negative otherwise stated in HPI PHYSICAL EXAMINATION: Vitals: see below General: NAD, obese HEENT: NC, AT, PERRLA, has conjunctival pallor, MMM CVS: RRR, +S1S2, loud pansystolic murmurs at RUSB Lungs: CTAB, no wheezing, rales or rhonchi Abdomen: Normoactive bowel sounds, obese, soft, NTND Extremities: 2+ pitting LE edema bilaterally, WWP Neuro: No focal motor or sensory deficit Skin: No rashes or lesions noted. Pale LABORATORY DATA and IMAGING: as noted above. See below for full details. ASSESSMENT: 69 year old W with a PMHx of IDDM2, Non-alcoholic Cirrhosis s/p TIPS, with cirrhosis c/b anemia (baseline ~8) and thrombocytopenia, Anxiety / Depression and GERD who is being admitted for acute on chronic anemia and PT/OT for safe discharge planning. Symptomatic acute on chronic anemia i/s/o Non alcoholic cirrhosis c/b chronic anemia and thrombocytopenia -transfuse 2u pRBCs -ED guaiac was negative -continue ferrous sulfate supplementation -daily CBC -TEDs and SCDs for DVT ppx -goal hgb >8 -PT/OT -resume home diuretic therapy as she gets colloid volume Thrombocytopenia -2/2 cirrhosis -Daily CBC Non-alcoholic Cirrhosis -Resume furosemide 80mg PO daily and spironolactone 100mg daily -Resume Rifaxamin and Lactulose IDDM2 -Levemir 86units QAM per home dosing -ISS AC/HS -FSBG AC/HS -hypoglycemia protocol Anxiety and Depression -resume home citalopram GERD -given anemia with dark stool, most likely 2/2 Fe supplementation, will still be cautious and convert home PPI to 40mg IV BID for now DVT prophylaxis -TEDs and SCDs Vital Signs Vital Signs Date Time Temp Pulse Resp B/P (MAP) Pulse Ox O2 Delivery O2 Flow Rate FiO2 10/07/20 16:22 10/07/20 15:23 98.1 81 20 100 Laboratory Data Labs 24H Laboratory Tests 2 10/07/20 16:45: Immature Granulocyte % (Auto) 0.6, Neutrophils (%) (Auto) 72.2H, Lymphocytes (%) (Auto) 9.9L, Monocytes (%) (Auto) 10.5H, Eosinophils (%) (Auto) 6.2H, Basophils (%) (Auto) 0.6, Neutrophils # (Auto) 2.3, Lymphocytes # (Auto) 0.3L, Monocytes # (Auto) 0.3, Eosinophils # (Auto) 0.2, Basophils # (Auto) 0.0, Nucleated Red Blood Cells % (auto) 0.0, Immature Platelet Fraction 5.3, Anion Gap 7L, Glomerular Filtration Rate 45.7, Calcium Level 8.3L, Total Bilirubin 1.7H, Direct Bilirubin 0.6H, Aspartate Amino Transf (AST/SGOT) 48H, Alanine Aminotransferase (ALT/SGPT) 28, Alkaline Phosphatase 114, Total Creatine Kinase 84, Creatine Kinase MB 1.8, Creatine Kinase MB Relative Index 2.14, Troponin I < 0.02, Total Protein 4.9L, Albumin 2.6L, Albumin/Globulin Ratio 1.1L, Lipase 106 CBC/BMP Laboratory Tests 10/07/20 16:45 Home Medications Scheduled Ascorbic Acid (Vitamin C) 500 Mg Tab, 500 MG PO DAILY Cholecalciferol (Vitamin D3) (Vitamin D3) 1,000 Unit Tablet, 1,000 UNITS PO DAILY Citalopram Hydrobromide (Citalopram HBr) 20 Mg Tablet, 10 MG PO DAILY Estradiol (Estrace) 0.1 Mg/Gm Cre, 0.1 MG PV 3XW Saturday, Saturday and Saturday Ferrous Gluconate (Ferrous Gluconate) 324 Mg Tab, 324 MG PO TID Furosemide (Furosemide) 40 Mg Tab, 80 MG PO DAILY TAKE WITH HALF TAB. TOTAL DAILY DOSE OF 100MG Furosemide (Furosemide) 40 Mg Tablet, 20 MG PO DAILY TAKE WITH TWO FULL TABLETS, TOTAL DAILY DOSE OF 100MG. Insulin Degludec (Tresiba Flextouch U-200) 200 Unit/Ml Inj, 110 UNITS SC DAILY Insulin Human Lispro (Novolog) 100 Unit/1 Ml Vial, 10 UNITS SC BID Ketoconazole (Ketoconazole) 2 % Cre, 1 APLCT TOP BID APPLY UNDER SKIN FOLDS Lactulose (Lactulose) 10 Gm/15 Ml Florina, 15 ML PO BID Magnesium Oxide (Magnesium) 400 Mg Cap, 400 MG PO BID Pantoprazole Sodium (Pantoprazole Sodium) 40 Mg Tab, 80 MG PO QHS Rifaximin (Xifaxan) 550 Mg Tab, 550 MG PO BID Spironolactone (Spironolactone) 50 Mg Tab, 100 MG PO DAILY Vitamin E (Dl,Tocopheryl Acet) (Vitamin E) 400 Unit Capsule, 800 UNIT PO DAILY Allergies Coded Allergies: allopurinol (Verified Allergy, Severe, uvula swelled, 09/15/18) levofloxacin (Verified Adverse Reaction, Severe, tendons tight, 09/15/18) Sulfa (Sulfonamide Antibiotics) (Verified Adverse Reaction, Intermediate, whoozy, 09/15/18) Tetracyclines (Verified Adverse Reaction, Intermediate, whoozy, 09/15/18) amoxicillin (Verified Adverse Reaction, Intermediate, nausea, 09/15/18) banana (Verified Adverse Reaction, Intermediate, stomach pain, 09/15/18) A-FIB/CHADSVASC A-FIB History Current/History of A-Fib/PAF?: No Current PO Anticoag Therapy: No Age/Risk Factor Scoring CHADSVASC: CHADSVASC Response (Comments) Value Age Risk Factor Age 65-74 years old 1 Gender Risk Factor Female 1 Hx of CHF No 0 Hx of HTN Yes 1 Hx of Stroke/TIA/or VTE No 0 Hx of Diabetes Yes 1 Hx of Vascular Disease No 0 Total 4 Treatment Treatment ordered: NONE Reason Anticoagulant not given: Not indicated/[id number] CHARO RIOS MD Oct 07, 2020 18:36
[2020-10-07 20:13] LABS: RSV AMPLIFICATION NEGATIVE (NEGATIVE)
--- NOTE | 2020-10-07 20:34 | ECGEPIP ---
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
[2020-10-07] MEDS: LACTULOSE 20 GM/30 ML SYRUP UD PO SCH (21:00)
[2020-10-07] MEDS ORDERED: HumaLOG INSULIN (NovoLOG) PER UNIT SC SCH (21:00)
[2020-10-07] MEDS: ASPIRIN 81 MG CHEW TABLET PO SCH (21:26)
[2020-10-07] MEDS: rifAXIMin 550 MG TAB (XIFAXAN) PO SCH (22:39)
[2020-10-07] MEDS: MAGNESIUM OXIDE 400MG TAB (MAG-OX) PO SCH (22:40)
[2020-10-07] MEDS: PANTOPRAZOLE 40MG VIAL (C9113 PER 1) IV SCH (22:40)
[2020-10-08] VITALS (12 sets, daily range): BP systolic 126–162; BP diastolic 59–72
[2020-10-08 05:34] LABS: HEMATOCRIT 25.4 % (36.0-47.0); HEMOGLOBIN 7.8 g/dl (12.0-15.5); MEAN CORPUSCULAR HEMOGLOBIN 25.8 pg (27.0-33.0); MEAN CORPUSCULAR HGB CONC 30.7 g/dl (32.0-36.5); MEAN CORPUSCULAR VOLUME 84.1 fl (80.0-96.0); RED BLOOD COUNT 3.02 10^6/uL (4.00-5.40); WHITE BLOOD COUNT 4.5 10^3/uL (4.0-10.0)
[2020-10-08 05:36] LABS: PLATELET COUNT, AUTOMATED 54 10^3/uL (150-450)
[2020-10-08 06:01] LABS: ALBUMIN 2.3 GM/DL (3.2-5.2); BILIRUBIN,TOTAL 1.8 MG/DL (0.2-1.0); CALCIUM LEVEL 8.1 MG/DL (8.8-10.2); CREATININE FOR GFR 1.08 MG/DL (0.55-1.30); GLOMERULAR FILTRATION RATE 53.5 (>45); MAGNESIUM LEVEL 1.9 MG/DL (1.8-2.4); POTASSIUM SERUM 3.6 MEQ/L (3.5-5.1); TOTAL PROTEIN 4.7 GM/DL (6.4-8.2)
[2020-10-08] MEDS: HumaLOG INSULIN (NovoLOG) PER UNIT SC SCH ×3 (07:30→17:30)
[2020-10-08] MEDS: LACTULOSE 20 GM/30 ML SYRUP UD PO SCH (08:38)
[2020-10-08] MEDS: PANTOPRAZOLE 40MG VIAL (C9113 PER 1) IV SCH (08:38)
[2020-10-08] MEDS: ASPIRIN 81 MG CHEW TABLET PO SCH (08:39)
[2020-10-08] MEDS: MAGNESIUM OXIDE 400MG TAB (MAG-OX) PO SCH (08:39)
[2020-10-08] MEDS: rifAXIMin 550 MG TAB (XIFAXAN) PO SCH (08:49)
[2020-10-08] MEDS ORDERED: SPIRONOLACTONE 50 MG TAB PO SCH (09:00)
[2020-10-08] MEDS ORDERED: FUROSEMIDE 20 MG TAB PO SCH (09:00)
[2020-10-08] MEDS ORDERED: VITAMIN E 400 INTERNATIONAL UNITS CAP PO SCH (09:00)
[2020-10-08] MEDS ORDERED: LEVEMIR (INSULIN DETEMIR) 1 UNITS/0.01ML SC SCH (09:00)
[2020-10-08] MEDS ORDERED: ASCORBIC ACID 500 MG TAB PO SCH (09:00)
[2020-10-08] MEDS ORDERED: VITAMIN D 1,000 INTERNATIONAL UNITS TABLET PO SCH (09:00)
--- NOTE | 2020-10-08 13:43 | REP ---
INDICATION: r/o DVT COMPARISON: None. TECHNIQUE: Padgett scale and color Doppler evaluation using linear high frequency transducer. FINDINGS: Ultrasound examination of the right and left lower extremity deep venous structures from the common femoral vein through the popliteal veins demonstrates normal compressibility flow and wave patterns in response to respiration and augmentation. There is no evidence for deep venous thrombosis. IMPRESSION: No evidence for deep venous thrombosis. <Electronically signed by Jake Laughlin > 10/08/20 [id number]
[2020-10-08 17:06] LABS: BASO % 0.4 % (0.0-1.0); EOS # 0.2 10^3/uL (0.0-0.5); EOS % 4.3 % (0.0-3.0); HEMATOCRIT 32.1 % (36.0-47.0); LYMPH # 0.3 10^3/uL (1.5-5.0); LYMPH % 6.1 % (24.0-44.0); MEAN CORPUSCULAR HEMOGLOBIN 26.6 pg (27.0-33.0); MEAN CORPUSCULAR HGB CONC 31.2 g/dl (32.0-36.5); MEAN CORPUSCULAR VOLUME 85.4 fl (80.0-96.0); MONO # 0.5 10^3/uL (0.0-0.8); MONO % 9.1 % (2.0-8.0); NEUTROPHILS # 3.9 10^3/uL (1.5-8.5); NEUTROPHILS % 79.7 % (36.0-66.0); RED BLOOD COUNT 3.76 10^6/uL (4.00-5.40); WHITE BLOOD COUNT 4.9 10^3/uL (4.0-10.0)
[2020-10-08 17:08] LABS: PLATELET COUNT, AUTOMATED 58 10^3/uL (150-450)
[2020-10-08] MEDS ORDERED: PANT-23 PO (18:32)
[2020-10-08] MEDS ORDERED: FERR32TA PO (18:37)
--- NOTE | 2020-10-08 18:56 | DS.PDOC ---
Discharge Summary General Date of Admission Oct 07, 2020 at 18:00 Date of Discharge 10/08/20 Discharge Summary PROCEDURES PERFORMED DURING STAY: [None]. COMPLICATIONS/CHIEF COMPLAINT: Acute On Chronic Anemia. HISTORY OF PRESENT ILLNESS:69 year old W with a PMHx of IDDM2, Non- alcoholic Cirrhosis s/p TIPS, with cirrhosis c/b anemia (baseline ~8) and thrombocytopenia, Anxiety / Depression and GERD who presented to urgent care for SOB, MAGUIRE with poor exercise tolerance and had labs done that showed a Hgb of 7.3 and on being reported to PCP, the PCP recommended presentation the ED. She denies any recent fever, chills, marialuisa chest pain, palpitations, LOC, cough, lower extremity swelling, dysuria, hematuria, nausea, emesis or abdominal pain. She does report some dark stool without marialuisa hematochezia. In the ED, she was hypertensive to SBP 180s and otherwise afebrile and saturating well on room air. WBC was 3.2, hgb 7.1, had been 7.3 yesterday in outpatient labs and 8.9 1 month ago, na 140, k 3.6, Cr 1.24 close to baseline and CXR showed no acute cardiopulmonary process. She is now being admitted for acute on chronic anemia and PT/OT for safe discharge planning. HOSPITAL COURSE: Symptomatic acute on chronic anemia i/s/o Non alcoholic cirrhosis c/b chronic anemia and thrombocytopenia -Hgb 7.0 on arrival was transfused 2u pRBCs with modest improvement to 7.8. - required a total of 4 units, hemoglobin improved to 10 upon DC - no gross bleeding observed while inpatient - patient declined inpatient upper and lower endoscopy. Wishes to follow up with her primary GI, Dr. Ruiz for endoscopy -ED guaiac was negative -continue PO iron supplementation. -TEDs and SCDs for DVT ppx -goal hgb >8 -PT/OT - cleared patient for DC to self care. -resume home diuretic therapy as she gets colloid volume Thrombocytopenia -2/2 cirrhosis -baseline PLT 80s, now decreased to 58, continue to remain stable - D/w Dr. Benson, belies to be consistent with level of liver disease - to repeat CBC within 1 weeks - patient educated at length on red flags for bleeding, and to return to ER MIRANDA if develops. Non-alcoholic Cirrhosis -Resume furosemide 80mg PO daily and spironolactone 100mg daily -Resume Rifaxamin and Lactulose IDDM2 -resume home dosing of tresiba on DC 110 units SC daily -ISS AC/HS -FSBG AC/HS -hypoglycemia protocol Anxiety and Depression -resume home citalopram GERD -given anemia with dark stool, most likely 2/2 Fe supplementation, will still be cautious and convert home PPI to 40mg IV BID for now DISCHARGE MEDICATIONS: Please see below. ALLERGIES: Please see below. PHYSICAL EXAMINATION ON DISCHARGE: VITAL SIGNS: please see below General: NAD, comfortable HEENT: PERRLA, EOMI, sclerae clear Neck: supple, normal ROM, no JVD Respiratory: lungs CTAB, no wheeze, no rales, no crackles CVS: RRR, normal S1, S2, no murmurs Abdo: soft, no masses, no hepatosplenomegaly, BS+, no rebound tenderness Extremities: no edema, pulses 2+ MSK: no joint deformities, normal ROM Neuro: no focal neuro deficits, moving all 4 extremities, CN2-12 intact. Strength 5/5 in all 4 extremities. No nystagmus. Psych: calm, cooperative, AAO x 3 LABORATORY DATA: Please see below. IMAGING: Bilateral venous duplex (10/08/20): IMPRESSION: No evidence for deep venous thrombosis. CXR (10/07/20): FINDINGS: The mediastinum and cardiac silhouette are normal. The lung ortiz are clear and without acute consolidation, effusion, or pneumothorax. The skeletal structures are intact and normal. IMPRESSION: No acute cardiopulmonary process. PROGNOSIS: good ACTIVITY: [As tolerated]. DIET: consistent carbohydrate diet. DISCHARGE PLAN: DC home with PCP follow up in 3-5 days. To follow up with Dr. Ruiz in 1-2 weeks for EGD and colonoscopy. DISPOSITION: home with self care. DISCHARGE INSTRUCTIONS: . Please follow-up with your primary care doctor within 3-5 days . Please follow-up with GI Dr. Ruiz within 1-2 weeks . Please taking medications as prescribed. . If you develop bleeding, chest pain, shortness of breath, seizures, nausea, fevers, or otherwise worsening of your symptoms, please call 911 or return to the nearest emergency room ITEMS TO FOLLOWUP ON ON OUTPATIENT: . please repeat DISCHARGE CONDITION: [Stable]. TIME SPENT ON DISCHARGE: 35 minutes Vital Signs/I&Os Vital Signs Date Time Temp Pulse Resp B/P (MAP) Pulse Ox O2 Delivery O2 Flow Rate FiO2 10/08/20 16:06 97.2 76 18 142/66 99 Room Air I&O- Last 24 Hours up to 6 AM 10/08/20 06:00 Intake Total 460 ml Output Total 0 ml Balance 460 ml Laboratory Data Labs 24H Laboratory Tests 2 10/07/20 19:14: Coronavirus (COVID-19)(PCR) NEGATIVE, Influenza Type A (RT-PCR) NEGATIVE, Influenza Type B (RT-PCR) NEGATIVE, Respiratory Syncytial Virus (PCR) NEGATIVE 10/08/20 05:11: Nucleated Red Blood Cells % (auto) 0.0, Anion Gap 6L, Glomerular Filtration Rate 53.5, Calcium Level 8.1L, Magnesium Level 1.9, Total Bilirubin 1.8H, Aspartate Amino Transf (AST/SGOT) 39H, Alanine Aminotransferase (ALT/SGPT) 25, Alkaline Phosphatase 104, Total Protein 4.7L, Albumin 2.3L, Albumin/Globulin Ratio 1.0L 10/08/20 11:51: Bedside Glucose (Misc Panel) 231H 10/08/20 16:52: Nucleated Red Blood Cells % (auto) 0.0, Immature Granulocyte % (Auto) 0.4, Neutrophils (%) (Auto) 79.7H, Lymphocytes (%) (Auto) 6.1L, Monocytes (%) (Auto) 9.1H, Eosinophils (%) (Auto) 4.3H, Basophils (%) (Auto) 0.4, Neutrophils # (Auto) 3.9, Lymphocytes # (Auto) 0.3L, Monocytes # (Auto) 0.5, Eosinophils # (Auto) 0.2, Basophils # (Auto) 0.0, Immature Platelet Fraction 4.4 CBC/BMP Laboratory Tests 10/08/20 05:11 10/08/20 16:52 FSBS Laboratory Tests Test 10/08/20 11:51 Range/Units Bedside Glucose (Misc Panel) 231 80-115 MG/DL Discharge Medications Scheduled Ascorbic Acid (Vitamin C) 500 Mg Tab, 500 MG PO DAILY, (Reported) Cholecalciferol (Vitamin D3) (Vitamin D3) 1,000 Unit Tablet, 1,000 UNITS PO DAILY, (Reported) Citalopram Hydrobromide (Citalopram HBr) 20 Mg Tablet, 10 MG PO DAILY, (Reported) Estradiol (Estrace) 0.1 Mg/Gm Cre, 0.1 MG PV 3XW, (Reported) Saturday, Saturday and Saturday Ferrous Gluconate (Ferrous Gluconate) 324 Mg Tab, 324 MG PO BID Furosemide (Furosemide) 40 Mg Tab, 80 MG PO DAILY, (Reported) TAKE WITH HALF TAB. TOTAL DAILY DOSE OF 100MG Furosemide (Furosemide) 40 Mg Tablet, 20 MG PO DAILY, (Reported) TAKE WITH TWO FULL TABLETS, TOTAL DAILY DOSE OF 100MG. Insulin Degludec (Tresiba Flextouch U-200) 200 Unit/Ml Inj, 110 UNITS SC DAILY, (Reported) Insulin Human Lispro (Novolog) 100 Unit/1 Ml Vial, 10 UNITS SC BID, (Reported) Ketoconazole (Ketoconazole) 2 % Cre, 1 APLCT TOP BID, (Reported) APPLY UNDER SKIN FOLDS Lactulose (Lactulose) 10 Gm/15 Ml Florina, 15 ML PO BID, (Reported) Magnesium Oxide (Magnesium) 400 Mg Cap, 400 MG PO BID, (Reported) Pantoprazole Sodium (Pantoprazole Sodium) 40 Mg Tablet.dr, 1 TAB PO BID Rifaximin (Xifaxan) 550 Mg Tab, 550 MG PO BID, (Reported) Spironolactone (Spironolactone) 50 Mg Tab, 100 MG PO DAILY, (Reported) Vitamin E (Dl,Tocopheryl Acet) (Vitamin E) 400 Unit Capsule, 800 UNIT PO DAILY, (Reported) Allergies Coded Allergies: allopurinol (Verified Allergy, Severe, uvula swelled, 09/15/18) levofloxacin (Verified Adverse Reaction, Severe, tendons tight, 09/15/18) Sulfa (Sulfonamide Antibiotics) (Verified Adverse Reaction, Intermediate, whoozy, 09/15/18) Tetracyclines (Verified Adverse Reaction, Intermediate, whoozy, 09/15/18) amoxicillin (Verified Adverse Reaction, Intermediate, nausea, 09/15/18) banana (Verified Adverse Reaction, Intermediate, stomach pain, 09/15/18) GEGE COOK MD Oct 08, 2020 18:56
== END 2020-10-08 19:20 | disposition home or self-care (01) | DRG 812 ==
LOC: M ED 15:22 → M ED INP 18:00 → ENRESERV 20:27 → M PCU 20:48
PROVIDERS: ADMIT Internal Medicine; ATTEND Family Medicine
PROC: 30233N1 Transfusion of Nonautologous Red Blood Cells into Peripheral Vein, Percutaneous Approach (ICD-10-PCS; principal; 2020-10-07)
DX: D50.0 Iron deficiency anemia secondary to blood loss (chronic) (principal); E11.65 Type 2 diabetes mellitus with hyperglycemia; K75.81 Nonalcoholic steatohepatitis (NASH); D69.6 Thrombocytopenia, unspecified; F41.9 Anxiety disorder, unspecified; F32.9 Major depressive disorder, single episode, unspecified; K21.9 Gastro-esophageal reflux disease without esophagitis; M81.0 Age-related osteoporosis without current pathological fracture; Z79.899 Other long term (current) drug therapy; Z20.822 Contact with and (suspected) exposure to COVID-19; Z88.1 Allergy status to other antibiotic agents; Z88.2 Allergy status to sulfonamides; Z88.8 Allergy status to other drugs, medicaments and biological substances; Z91.018 Allergy to other foods

== ENCOUNTER → 2020-10-17 | Outpatient (REF) | payer MEDICARE, OTHER ==
[~2020-10-17] MED LIST changes: +CITA20TA7 PO; +D31000TA2 PO; +PANT-23 PO
[2020-10-17 12:30] LABS: BASO % 0.7 % (0.0-1.0); EOS # 0.3 10^3/uL (0.0-0.5); EOS % 5.5 % (0.0-3.0); HEMATOCRIT 31.5 % (36.0-47.0); HEMOGLOBIN 9.8 g/dl (12.0-15.5); LYMPH # 0.7 10^3/uL (1.5-5.0); LYMPH % 10.8 % (24.0-44.0); MEAN CORPUSCULAR HEMOGLOBIN 26.9 pg (27.0-33.0); MEAN CORPUSCULAR HGB CONC 31.1 g/dl (32.0-36.5); MEAN CORPUSCULAR VOLUME 86.5 fl (80.0-96.0); MONO # 0.6 10^3/uL (0.0-0.8); MONO % 9.3 % (2.0-8.0); NEUTROPHILS # 4.4 10^3/uL (1.5-8.5); NEUTROPHILS % 73.2 % (36.0-66.0); RED BLOOD COUNT 3.64 10^6/uL (4.00-5.40)
[2020-10-17 12:38] LABS: PLATELET COUNT, AUTOMATED 86 10^3/uL (150-450)
== END ==
LOC: M LABDRAWC 11:23
PROVIDERS: ATTEND Internal Medicine Gastroenterology
DX: D64.9 Anemia, unspecified (principal)

== ENCOUNTER → 2020-10-24 | Outpatient (CLI) | payer MEDICARE, OTHER | LOC: M LABSMTC 09:28 | PROVIDERS: ATTEND Anesthesiology | DX: Z01.812 Encounter for preprocedural laboratory examination (principal); Z20.822 Contact with and (suspected) exposure to COVID-19 ==

== ENCOUNTER 2020-10-28 10:51 | Day surgery (SDC) | payer MEDICARE, OTHER ==
[~2020-10-28] VITALS: Ht 167.6 cm; Wt 123.3 kg
[~2020-10-28 10:51] MED LIST changes: +NS 1,000 ML IV ONE
[2020-10-28] MEDS ORDERED: fentaNYL 100 MCG/2 ML INJECTION (J3010) As Ordered ONE ×2 (12:54→13:41)
[2020-10-28] MEDS ORDERED: propofoL 500 MG/50 ML VIAL As Ordered ONE (12:56)
[2020-10-28] MEDS ORDERED: LIDOCAINE 2% 100MG/5ML SDV (FOR ANES.) As Ordered ONE (13:42)
--- NOTE | 2020-10-28 13:55 | ROOR ---
Patient Name: Bakari Garcia Procedure Date: 10/28/2020 1:23 PM Date of : 1950 Age: 69 Room: [facility] Gender: Female Note Status: Finalized Procedure: Egd + Apc + Ligation + Hemoclips Indications: Iron deficiency anemia secondary to chronic blood loss, Unexplained iron deficiency anemia Providers: Vishal Ruiz MD Referring MD: VIOLETA WEAVER DO Requesting Provider: Medicines: Monitored Anesthesia Care Complications: No immediate complications. Procedure: Pre-Anesthesia Assessment: - The heart rate, respiratory rate, oxygen saturations, blood pressure, adequacy of pulmonary ventilation, and response to care were monitored throughout the procedure. The Endoscope was introduced through the mouth, and advanced to the second part of duodenum. The upper GI endoscopy was accomplished without difficulty. The patient tolerated the procedure well. Findings: The Z-line was regular and was found 40 cm from the incisors. One small pedunculated polyp with no bleeding and stigmata of recent bleeding was found in the cardia. For hemostasis, two hemostatic clips were successfully placed. There was no bleeding at the end of the procedure. One large pedunculated and sessile polyp with no bleeding and no stigmata of recent bleeding was found on the greater curvature of the stomach. One ligature was successfully placed. 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 Coagulation for hemostasis using argon plasma at 0.8 liters/minute and 35 land was successful. The exam was otherwise without abnormality. The examined duodenum was normal. Impression: - Z-line regular, 40 cm from the incisors. - One gastric polyp. Clips were placed. - One gastric polyp. Ligated. - Gastric antral vascular ectasia with bleeding. Treated with argon plasma coagulation (APC). - The examination was otherwise normal. - Normal examined duodenum. - No specimens collected. - The examination was otherwise normal. Recommendation: - Patient has a contact number available for emergencies. The signs and symptoms of potential delayed complications were discussed with the patient. Return to normal activities tomorrow. Written discharge instructions were provided to the patient. - Discharge patient to home. - Continue present medications. - Repeat upper endoscopy in 2 months for retreatment. - Return to referring physician. - Return to GI office in 6 weeks. - The findings and recommendations were discussed with the patient's family. Procedure Code(s): --- Professional --- 85675, Esophagogastroduodenoscopy, flexible, transoral; with control of bleeding, any method Diagnosis Code(s): --- Professional --- K31.7, Polyp of stomach and duodenum K31.811, Angiodysplasia of stomach and duodenum with bleeding D50.0, Iron deficiency anemia secondary to blood loss (chronic) D50.9, Iron deficiency anemia, unspecified CPT copyright 2019 [place]. All rights reserved. The codes documented in this report are preliminary and upon tricot knitter review may be revised to meet current compliance requirements. Vishal Ruiz MD Vishal Ruiz MD 10/28/2020 1:54:58 PM Electronically signed by Vishal Ruiz MD Number of Addenda: 0 Note Initiated On: 10/28/2020 1:23 PM Estimated Blood Loss: Estimated blood loss: none.
[2020-10-28] MEDS ORDERED: propofoL 200 MG/20 ML VIAL As Ordered ONE (14:23)
--- NOTE | 2020-10-28 14:31 | ROOR ---
Patient Name: Bakari Garcia Procedure Date: 10/28/2020 1:25 PM Date of : 1950 Age: 69 Room: [facility] Gender: Female Note Status: Finalized Procedure: Total Colonoscopy to Cecum Indications: Iron deficiency anemia secondary to chronic blood loss Providers: Vishal Ruiz MD Referring MD: VIOLETA WEAVER DO Requesting Provider: Medicines: Monitored Anesthesia Care Complications: No immediate complications. Procedure: Pre-Anesthesia Assessment: - The heart rate, respiratory rate, oxygen saturations, blood pressure, adequacy of pulmonary ventilation, and response to care were monitored throughout the procedure. The Colonoscope was introduced through the anus and advanced to the cecum, identified by appendiceal orifice and ileocecal valve. The colonoscopy was performed without difficulty. The patient tolerated the procedure well. The quality of the bowel preparation was fair. Findings: The perianal and digital rectal examinations were normal. Non-bleeding internal hemorrhoids were found during retroflexion. The hemorrhoids were small and Grade I (internal hemorrhoids that do not prolapse). Multiple small and large-mouthed diverticula were found in the recto-sigmoid colon, sigmoid colon and descending colon. The exam was otherwise without abnormality on direct and retroflexion views. The exam was otherwise without abnormality. Impression: - Preparation of the colon was fair. - Non-bleeding internal hemorrhoids. - Diverticulosis in the recto-sigmoid colon, in the sigmoid colon and in the descending colon. - The examination was otherwise normal on direct and retroflexion views. - The examination was otherwise normal. - No specimens collected. - The exam was otherwise normal to the cecum. Recommendation: - Patient has a contact number available for emergencies. The signs and symptoms of potential delayed complications were discussed with the patient. Return to normal activities tomorrow. Written discharge instructions were provided to the patient. - Discharge patient to home. - Continue present medications. - Repeat colonoscopy in 5 years for surveillance. - Return to referring physician. - Return to GI office in 2 months. - The findings and recommendations were discussed with the patient's family. Procedure Code(s): --- Professional --- 99946, Colonoscopy, flexible; diagnostic, including collection of specimen(s) by brushing or washing, when performed (separate procedure) Diagnosis Code(s): --- Professional --- K64.0, First degree hemorrhoids D50.0, Iron deficiency anemia secondary to blood loss (chronic) K57.30, Diverticulosis of large intestine without perforation or abscess without bleeding CPT copyright 2019 [employer]. All rights reserved. The codes documented in this report are preliminary and upon applications developer review may be revised to meet current compliance requirements. Vishal Ruiz MD Vishal Ruiz MD 10/28/2020 2:31:13 PM Electronically signed by Vishal Ruiz MD Number of Addenda: 0 Note Initiated On: 10/28/2020 1:25 PM Estimated Blood Loss: Estimated blood loss: none.
[2020-10-28 14:57] VITALS: BP 128/63
== END 2020-10-28 14:58 | disposition home or self-care (01) ==
LOC: M OPP 10:51
PROVIDERS: ATTEND Internal Medicine Gastroenterology
DX: K57.30 Diverticulosis of large intestine without perforation or abscess without bleeding (principal); K64.0 First degree hemorrhoids; K31.7 Polyp of stomach and duodenum; K31.811 Angiodysplasia of stomach and duodenum with bleeding; D60.0 Chronic acquired pure red cell aplasia; K74.60 Unspecified cirrhosis of liver; Z79.4 Long term (current) use of insulin; Z79.899 Other long term (current) drug therapy; Z88.1 Allergy status to other antibiotic agents; Z88.2 Allergy status to sulfonamides; Z88.8 Allergy status to other drugs, medicaments and biological substances; Z96.89 Presence of other specified functional implants
CPT/HCPCS: 43255; 45378; J3010

== ENCOUNTER → 2020-11-30 | Outpatient (REF) | payer MEDICARE, OTHER ==
[~2020-11-30] MED LIST changes: -NS 1,000 ML IV ONE
[2020-11-30 16:21] LABS: ALBUMIN 3.1 GM/DL (3.2-5.2); BILIRUBIN,TOTAL 1.7 MG/DL (0.2-1.0); CALCIUM LEVEL 9.3 MG/DL (8.8-10.2); CREATININE FOR GFR 1.34 MG/DL (0.55-1.30); GLOMERULAR FILTRATION RATE 41.7 (>45); POTASSIUM SERUM 4.7 MEQ/L (3.5-5.1)
[2020-11-30 16:50] LABS: HEMOGLOBIN A1c 6.2 %
== END ==
LOC: M SFHCCLAY 13:08
PROVIDERS: ATTEND Family Medicine
DX: E11.9 Type 2 diabetes mellitus without complications (principal)

== ENCOUNTER → 2020-11-30 | Outpatient (REF) | payer MEDICARE, OTHER ==
[2020-11-30 15:51] LABS: BASO # 0.1 10^3/uL (0.0-0.2); BASO % 0.9 % (0.0-1.0); EOS # 0.5 10^3/uL (0.0-0.5); EOS % 7.5 % (0.0-3.0); HEMATOCRIT 35.3 % (36.0-47.0); HEMOGLOBIN 11.7 g/dl (12.0-15.5); LYMPH # 0.5 10^3/uL (1.5-5.0); LYMPH % 7.5 % (24.0-44.0); MEAN CORPUSCULAR HEMOGLOBIN 27.6 pg (27.0-33.0); MEAN CORPUSCULAR HGB CONC 33.1 g/dl (32.0-36.5); MEAN CORPUSCULAR VOLUME 83.3 fl (80.0-96.0); MONO # 0.5 10^3/uL (0.0-0.8); MONO % 7.5 % (2.0-8.0); NEUTROPHILS # 5.4 10^3/uL (1.5-8.5); NEUTROPHILS % 76.2 % (36.0-66.0); PLATELET COUNT, AUTOMATED 113 10^3/uL (150-450); RED BLOOD COUNT 4.24 10^6/uL (4.00-5.40); WHITE BLOOD COUNT 7.1 10^3/uL (4.0-10.0)
[2020-11-30 16:08] LABS: ALBUMIN 3.1 GM/DL (3.2-5.2); BILIRUBIN,TOTAL 1.8 MG/DL (0.2-1.0); CALCIUM LEVEL 9.7 MG/DL (8.8-10.2); CREATININE FOR GFR 1.31 MG/DL (0.55-1.30); GLOMERULAR FILTRATION RATE 42.9 (>45); POTASSIUM SERUM 4.6 MEQ/L (3.5-5.1); TOTAL PROTEIN 6.1 GM/DL (6.4-8.2)
== END ==
LOC: M LABDRAWC 14:54
PROVIDERS: ATTEND Internal Medicine Gastroenterology
DX: D50.9 Iron deficiency anemia, unspecified (principal); K74.60 Unspecified cirrhosis of liver; E11.9 Type 2 diabetes mellitus without complications

== ENCOUNTER → 2021-01-25 | Outpatient (REF) | payer MEDICARE, OTHER ==
[2021-01-25 15:50] LABS: BASO # 0.1 10^3/uL (0.0-0.2); BASO % 0.7 % (0.0-1.0); EOS # 0.5 10^3/uL (0.0-0.5); EOS % 6.2 % (0.0-3.0); HEMATOCRIT 32.8 % (36.0-47.0); HEMOGLOBIN 11.1 g/dl (12.0-15.5); LYMPH # 0.7 10^3/uL (1.5-5.0); LYMPH % 9.1 % (24.0-44.0); MEAN CORPUSCULAR HEMOGLOBIN 29.1 pg (27.0-33.0); MEAN CORPUSCULAR HGB CONC 33.8 g/dl (32.0-36.5); MEAN CORPUSCULAR VOLUME 85.9 fl (80.0-96.0); MONO # 0.6 10^3/uL (0.0-0.8); MONO % 7.7 % (2.0-8.0); NEUTROPHILS # 5.7 10^3/uL (1.5-8.5); RED BLOOD COUNT 3.82 10^6/uL (4.00-5.40); WHITE BLOOD COUNT 7.6 10^3/uL (4.0-10.0)
[2021-01-25 15:51] LABS: PLATELET COUNT, AUTOMATED 93 10^3/uL (150-450)
[2021-01-25 16:11] LABS: ALBUMIN 3.3 GM/DL (3.2-5.2); BILIRUBIN,TOTAL 2.2 MG/DL (0.2-1.0); CALCIUM LEVEL 9.5 MG/DL (8.8-10.2); CREATININE FOR GFR 1.74 MG/DL (0.55-1.30); GLOMERULAR FILTRATION RATE 30.8 (>39); POTASSIUM SERUM 4.4 MEQ/L (3.5-5.1)
== END ==
LOC: M LABDRAWC 15:32 → M LAB REF 15:32
PROVIDERS: ATTEND Internal Medicine Gastroenterology
DX: K74.60 Unspecified cirrhosis of liver (principal); K76.6 Portal hypertension; R18.8 Other ascites; L82.1 Other seborrheic keratosis; Z79.899 Other long term (current) drug therapy

== ENCOUNTER → 2021-01-27 | Outpatient (CLI) | payer MEDICARE, OTHER ==
--- NOTE | 2021-01-27 12:01 | REP ---
INDICATION: CIRRHOSIS OF LIVER. COMPARISON: 07/11/2020. TECHNIQUE: Real-time sonographic evaluation of right upper quadrant performed. FINDINGS: There has been a prior cholecystectomy.. There is no intrahepatic or extrahepatic biliary dilatation, common bile duct measures 9 mm in maximum diameter. Liver demonstrates diffuse heterogeneous echotexture with no gross mass. There is a patent tips shunt. There is stable dilatation of the main portal vein 21 mm. The visualized pancreas is grossly unremarkable, not well seen due to overlying bowel gas. The right kidney demonstrates no hydronephrosis, with a normal size of 10.1 cm in length. No free fluid is seen. IMPRESSION: Patent tips shunt with stable dilatation of the main portal vein. <Electronically signed by Schuyler Padgett > 01/27/21 [id number]
== END ==
LOC: M RAD 09:17
PROVIDERS: ATTEND Internal Medicine Gastroenterology
DX: K74.60 Unspecified cirrhosis of liver (principal); Z97.8 Presence of other specified devices

== ENCOUNTER → 2021-04-14 | Outpatient (REF) | payer MEDICARE, OTHER | LOC: M SFHCCLAY 15:20 | PROVIDERS: ATTEND Physician Assistant | DX: R68.83 Chills (without fever) (principal) | CPT/HCPCS: 81002; 87086; 87426; G0463; U0003 ==

== ENCOUNTER → 2021-05-19 | Outpatient (REF) | payer MEDICARE, OTHER ==
[~2021-05-19] MED LIST changes: -D31000TA2 PO; +VITA100093 PO
[2021-05-19 16:22] LABS: HEMATOCRIT 24.2 % (36.0-47.0); HEMOGLOBIN 7.5 g/dl (12.0-15.5); MEAN CORPUSCULAR HEMOGLOBIN 26.1 pg (27.0-33.0); MEAN CORPUSCULAR VOLUME 84.3 fl (80.0-96.0); RED BLOOD COUNT 2.87 10^6/uL (4.00-5.40)
[2021-05-19 16:23] LABS: PLATELET COUNT, AUTOMATED 87 10^3/uL (150-450)
[2021-05-19 16:40] LABS: HEMOGLOBIN A1c 6.5 %
[2021-05-19 16:52] LABS: ALBUMIN 2.7 GM/DL (3.2-5.2); BILIRUBIN,TOTAL 1.1 MG/DL (0.2-1.0); CALCIUM LEVEL 8.7 MG/DL (8.8-10.2); CHOLESTEROL RISK RATIO 2.13 (<5); CREATININE FOR GFR 1.23 MG/DL (0.55-1.30); POTASSIUM SERUM 4.6 MEQ/L (3.5-5.1); THYROID STIMULATING HORMONE 1.35 uIU/ML (0.358-3.740); TOTAL PROTEIN 5.2 GM/DL (6.4-8.2)
[2021-05-19 19:06] LABS: ATYPICAL LYMPH 2 % (0-5); BASOPHILS 1 % (0-1); EOSINOPHILS 8 % (0-3); LYMPHOCYTES 16 % (16-44); MONOCYTES 4 % (0-5); NEUTROPHILS 66 % (28-66); PLATELET ESTIMATE DECREASED (NORMAL)
== END ==
LOC: M SFHCCLAY 11:27
PROVIDERS: ATTEND Family Medicine
DX: R06.00 Dyspnea, unspecified (principal); E11.9 Type 2 diabetes mellitus without complications; E07.9 Disorder of thyroid, unspecified; R60.9 Edema, unspecified

== ENCOUNTER → 2021-05-22 | Outpatient (REF) | payer MEDICARE, OTHER ==
[~2021-05-22] MED LIST changes: +D31000TA2 PO; -VITA100093 PO
== END ==
LOC: M SFHCCLAY 10:38
PROVIDERS: ATTEND Family Medicine
DX: D64.9 Anemia, unspecified (principal)

== ENCOUNTER 2021-05-23 11:54 | Outpatient (CLI) | payer MEDICARE, OTHER ==
[~2021-05-23] VITALS: Ht 167.6 cm; Wt 124.0 kg
[2021-05-23 12:41] VITALS: BP 139/69
[2021-05-23 13:00] VITALS: BP 145/67
[2021-05-23 14:22] VITALS: BP 135/60
[2021-05-23 14:40] VITALS: BP 137/64
[2021-05-23 15:56] VITALS: BP 138/92
[2021-05-23 16:00] VITALS: BP 138/92
== END 2021-05-23 16:15 | disposition home or self-care (01) ==
LOC: M INFU 11:54
PROVIDERS: ATTEND Family Medicine
DX: D64.9 Anemia, unspecified (principal); Z88.1 Allergy status to other antibiotic agents; Z88.2 Allergy status to sulfonamides; Z88.8 Allergy status to other drugs, medicaments and biological substances
CPT/HCPCS: 36430; 86920; P9016

== ENCOUNTER → 2021-06-01 | Outpatient (REF) | payer MEDICARE, OTHER ==
[~2021-06-01] MED LIST changes: -D31000TA2 PO; +VITA100093 PO
== END ==
LOC: M SFHCCLAY 13:35
PROVIDERS: ATTEND Physician Assistant
DX: R30.0 Dysuria (principal)

== ENCOUNTER → 2021-06-01 | Outpatient (REF) | payer MEDICARE, OTHER ==
[2021-06-01 16:01] LABS: BASO # 0.1 10^3/uL (0.0-0.2); EOS # 0.5 10^3/uL (0.0-0.5); HEMATOCRIT 30.5 % (36.0-47.0); HEMOGLOBIN 9.6 g/dl (12.0-15.5); LYMPH # 0.5 10^3/uL (1.5-5.0); LYMPH % 9.8 % (24.0-44.0); MEAN CORPUSCULAR HEMOGLOBIN 26.3 pg (27.0-33.0); MEAN CORPUSCULAR HGB CONC 31.5 g/dl (32.0-36.5); MEAN CORPUSCULAR VOLUME 83.6 fl (80.0-96.0); MONO # 0.4 10^3/uL (0.0-0.8); MONO % 8.3 % (2.0-8.0); NEUTROPHILS # 3.7 10^3/uL (1.5-8.5); NEUTROPHILS % 71.3 % (36.0-66.0); RED BLOOD COUNT 3.65 10^6/uL (4.00-5.40); WHITE BLOOD COUNT 5.2 10^3/uL (4.0-10.0)
[2021-06-01 16:04] LABS: PLATELET COUNT, AUTOMATED 80 10^3/uL (150-450)
[2021-06-01 16:30] LABS: BILIRUBIN,TOTAL 1.4 MG/DL (0.2-1.0); CALCIUM LEVEL 9.2 MG/DL (8.8-10.2); CREATININE FOR GFR 1.35 MG/DL (0.55-1.30); GLOMERULAR FILTRATION RATE 41.3 (>39); POTASSIUM SERUM 4.6 MEQ/L (3.5-5.1); TOTAL PROTEIN 5.7 GM/DL (6.4-8.2)
== END ==
LOC: M LABDRAWC 15:11
PROVIDERS: ATTEND Internal Medicine Gastroenterology
DX: K74.60 Unspecified cirrhosis of liver (principal); K76.6 Portal hypertension

== ENCOUNTER → 2021-06-07 | Outpatient (CLI) | payer MEDICARE, OTHER | LOC: M RAD 09:35 | PROVIDERS: ATTEND Internal Medicine Gastroenterology | DX: K74.60 Unspecified cirrhosis of liver (principal); I86.8 Varicose veins of other specified sites ==

== ENCOUNTER → 2021-06-14 | Outpatient (CLI) | payer MEDICARE, OTHER ==
[~2021-06-14] MED LIST changes: +CITA20TA6; +VITA400C49 PO
== END ==
LOC: M LABSMTC 10:58
PROVIDERS: ATTEND Anesthesiology
DX: Z01.812 Encounter for preprocedural laboratory examination (principal); Z20.822 Contact with and (suspected) exposure to COVID-19

== ENCOUNTER 2021-06-19 12:44 | Day surgery (SDC) | payer MEDICARE, OTHER ==
[~2021-06-19] VITALS: Ht 167.6 cm; Wt 119.7 kg
[2021-06-19] MEDS ORDERED: LIDOCAINE 2% 100MG/5ML SDV (FOR ANES.) As Ordered ONE (16:01)
[2021-06-19] MEDS ORDERED: propofoL 200 MG/20 ML VIAL As Ordered ONE (16:01)
[2021-06-19 16:40] VITALS: BP 139/63
== END 2021-06-19 16:57 | disposition home or self-care (01) ==
LOC: M OPP 12:44
PROVIDERS: ATTEND Internal Medicine Gastroenterology
DX: K31.819 Angiodysplasia of stomach and duodenum without bleeding (principal); K31.7 Polyp of stomach and duodenum; K44.9 Diaphragmatic hernia without obstruction or gangrene; D50.9 Iron deficiency anemia, unspecified; K76.6 Portal hypertension; K74.60 Unspecified cirrhosis of liver; E11.9 Type 2 diabetes mellitus without complications; Z79.4 Long term (current) use of insulin; Z79.899 Other long term (current) drug therapy; Z88.1 Allergy status to other antibiotic agents; Z88.2 Allergy status to sulfonamides; Z88.8 Allergy status to other drugs, medicaments and biological substances

== ENCOUNTER → 2021-06-27 | Outpatient (CLI) | payer MEDICARE, OTHER ==
[2021-06-27 13:21] LABS: HEMATOCRIT 29.2 % (36.0-47.0); HEMOGLOBIN 9.2 g/dl (12.0-15.5); MEAN CORPUSCULAR HEMOGLOBIN 26.3 pg (27.0-33.0); MEAN CORPUSCULAR HGB CONC 31.5 g/dl (32.0-36.5); MEAN CORPUSCULAR VOLUME 83.4 fl (80.0-96.0); PLATELET COUNT, AUTOMATED 109 10^3/uL (150-450); WHITE BLOOD COUNT 8.3 10^3/uL (4.0-10.0)
[2021-06-27 14:17] LABS: PERCENT SATURATION 61.7 % (13.2-45.0); THYROID STIMULATING HORMONE 1.96 uIU/ML (0.358-3.740)
[2021-06-27 14:18] LABS: FREE T4 1.12 NG/DL (0.76-1.46)
== END ==
LOC: M PLALAB 11:00
PROVIDERS: ATTEND Internal Medicine Hematology
DX: D50.9 Iron deficiency anemia, unspecified (principal); Z79.899 Other long term (current) drug therapy

== ENCOUNTER 2021-07-05 11:09 | Outpatient (CLI) | payer MEDICARE, OTHER ==
[~2021-07-05] VITALS: Ht 167.6 cm; Wt 118.1 kg
[~2021-07-05 11:09] MED LIST changes: +ACETAMINOPHEN TAB 650MG DOSE (2X325MG) PO ONE; +ALBUTEROL SULFATE 2.5 MG/0.5 ML INH NEB SOLN INH PRN; +EPINEPHrine INJ 1 MG/ML 1ML AMP IM PRN; +FERRIC CARBOXYMALTOSE INJ 750 MG, VIAL MATE ADAPTER 1 EACH in NS 250 ML IV ONE; +NS 1,000 ML IV SCH; +diphenhydrAMINE 25MG CAP PO ONE; +diphenhydrAMINE 50MG/ML VIAL (J1200) IV PRN; +methylPREDNISolone 125MG 2ML VIAL IV PRN
[2021-07-05] MEDS ORDERED: ALBUTEROL SULFATE 2.5 MG/0.5 ML INH NEB SOLN INH PRN (11:30)
[2021-07-05] MEDS ORDERED: NS 1,000 ML IV SCH (11:30)
[2021-07-05] MEDS ORDERED: methylPREDNISolone 125MG 2ML VIAL IV PRN (11:30)
[2021-07-05] MEDS ORDERED: ACETAMINOPHEN TAB 650MG DOSE (2X325MG) PO ONE (11:30)
[2021-07-05] MEDS ORDERED: EPINEPHrine INJ 1 MG/ML 1ML AMP IM PRN (11:30)
[2021-07-05] MEDS ORDERED: diphenhydrAMINE 25MG CAP PO ONE (11:30)
[2021-07-05] MEDS ORDERED: FERRIC CARBOXYMALTOSE INJ 750 MG, VIAL MATE ADAPTER 1 EACH in NS 250 ML IV ONE (11:45)
[2021-07-05 12:00] VITALS: BP 126/60
[2021-07-05 13:30] VITALS: BP 161/71
[2021-07-05 14:03] VITALS: BP 131/59
== END 2021-07-05 14:05 | disposition home or self-care (01) ==
LOC: M INFU 11:09
PROVIDERS: ATTEND Internal Medicine Hematology
DX: D64.9 Anemia, unspecified (principal)
CPT/HCPCS: 96365; J1439

== ENCOUNTER 2021-07-12 11:23 | Outpatient (CLI) | payer MEDICARE, OTHER ==
[~2021-07-12] VITALS: Ht 167.6 cm; Wt 118.1 kg
[2021-07-12 12:37] VITALS: BP 135/60
== END 2021-07-12 13:40 | disposition home or self-care (01) ==
LOC: M INFU 11:23
PROVIDERS: ATTEND Internal Medicine Hematology
DX: D50.9 Iron deficiency anemia, unspecified (principal); Z88.1 Allergy status to other antibiotic agents; Z88.2 Allergy status to sulfonamides; Z91.02 Food additives allergy status
CPT/HCPCS: 96365; J1439

== ENCOUNTER → 2021-08-31 | Outpatient (CLI) | payer MEDICARE, OTHER ==
[~2021-08-31] MED LIST changes: -ACETAMINOPHEN TAB 650MG DOSE (2X325MG) PO ONE; -ALBUTEROL SULFATE 2.5 MG/0.5 ML INH NEB SOLN INH PRN; -EPINEPHrine INJ 1 MG/ML 1ML AMP IM PRN; -FERRIC CARBOXYMALTOSE INJ 750 MG, VIAL MATE ADAPTER 1 EACH in NS 250 ML IV ONE; -NS 1,000 ML IV SCH; -diphenhydrAMINE 25MG CAP PO ONE; -diphenhydrAMINE 50MG/ML VIAL (J1200) IV PRN; -methylPREDNISolone 125MG 2ML VIAL IV PRN
[2021-08-31 15:25] LABS: BASO # 0.1 10^3/uL (0.0-0.2); BASO % 0.9 % (0.0-1.0); EOS # 0.5 10^3/uL (0.0-0.5); EOS % 7.2 % (0.0-3.0); HEMATOCRIT 29.3 % (36.0-47.0); HEMOGLOBIN 10.1 g/dl (12.0-15.5); LYMPH # 0.6 10^3/uL (1.5-5.0); LYMPH % 8.7 % (24.0-44.0); MEAN CORPUSCULAR HEMOGLOBIN 29.3 pg (27.0-33.0); MEAN CORPUSCULAR HGB CONC 34.5 g/dl (32.0-36.5); MEAN CORPUSCULAR VOLUME 84.9 fl (80.0-96.0); MONO # 0.5 10^3/uL (0.0-0.8); MONO % 7.5 % (2.0-8.0); NEUTROPHILS # 5.2 10^3/uL (1.5-8.5); NEUTROPHILS % 75.4 % (36.0-66.0); PLATELET COUNT, AUTOMATED 90 10^3/uL (150-450); RED BLOOD COUNT 3.45 10^6/uL (4.00-5.40); WHITE BLOOD COUNT 6.9 10^3/uL (4.0-10.0)
[2021-08-31 16:05] LABS: PERCENT SATURATION 77.8 % (13.2-45.0); THYROID STIMULATING HORMONE 1.49 uIU/ML (0.358-3.740)
== END ==
LOC: M PLALAB 13:46
PROVIDERS: ATTEND Internal Medicine Hematology
DX: K74.60 Unspecified cirrhosis of liver (principal); Z79.899 Other long term (current) drug therapy

== ENCOUNTER → 2021-12-12 | Outpatient (REF) | payer MEDICARE, OTHER ==
[~2021-12-12] MED LIST changes: +NYST-13 EXT; -NYST10CR EXT
[2021-12-12 17:24] LABS: BASO % 0.6 % (0.0-1.0); EOS # 0.4 10^3/uL (0.0-0.5); EOS % 5.7 % (0.0-3.0); HEMATOCRIT 30.4 % (36.0-47.0); LYMPH # 0.5 10^3/uL (1.5-5.0); LYMPH % 7.6 % (24.0-44.0); MEAN CORPUSCULAR HEMOGLOBIN 28.9 pg (27.0-33.0); MEAN CORPUSCULAR HGB CONC 32.9 g/dl (32.0-36.5); MEAN CORPUSCULAR VOLUME 87.9 fl (80.0-96.0); MONO # 0.4 10^3/uL (0.0-0.8); MONO % 6.4 % (2.0-8.0); NEUTROPHILS # 5.3 10^3/uL (1.5-8.5); NEUTROPHILS % 79.1 % (36.0-66.0); RED BLOOD COUNT 3.46 10^6/uL (4.00-5.40); WHITE BLOOD COUNT 6.7 10^3/uL (4.0-10.0)
[2021-12-12 17:32] LABS: PLATELET COUNT, AUTOMATED 79 10^3/uL (150-450)
[2021-12-12 17:35] LABS: INR 1.23
[2021-12-12 17:36] LABS: PARTIAL THROMBOPLASTIN TIME 31.2 SECONDS (25.9-37.0)
[2021-12-12 17:37] LABS: CALCIUM LEVEL 9.1 MG/DL (8.8-10.2); CREATININE FOR GFR 1.68 MG/DL (0.55-1.30); GLOMERULAR FILTRATION RATE 32.1 (>39); POTASSIUM SERUM 4.7 MEQ/L (3.5-5.1); TOTAL PROTEIN 5.5 GM/DL (6.4-8.2)
== END ==
LOC: M LABDRAWC 16:44
PROVIDERS: ATTEND Internal Medicine Gastroenterology
DX: K74.60 Unspecified cirrhosis of liver (principal)

== ENCOUNTER → 2021-12-12 | Outpatient (REF) | payer MEDICARE, OTHER ==
[2021-12-12 18:25] LABS: IRON (FE) 78 UG/DL (50-170)
[2021-12-12 18:53] LABS: HEPATITIS B SURFACE ANTIBODY NEGATIVE (POSITIVE)
[2021-12-12 19:04] LABS: HEPATITIS B SURFACE ANTIGEN NEGATIVE (NEGATIVE)
[2021-12-12 19:33] LABS: HEMOGLOBIN A1c 7.2 %
== END ==
LOC: M SFHCCLAY 12:57
PROVIDERS: ATTEND Family Medicine
DX: D50.9 Iron deficiency anemia, unspecified (principal); E11.9 Type 2 diabetes mellitus without complications; K74.60 Unspecified cirrhosis of liver

== ENCOUNTER → 2021-12-13 | Outpatient (CLI) | payer MEDICARE, OTHER | LOC: M WHC 11:49 | PROVIDERS: ATTEND Advanced Practice Midwife | DX: Z12.31 Encounter for screening mammogram for malignant neoplasm of breast (principal); Z53.9 Procedure and treatment not carried out, unspecified reason ==

== ENCOUNTER → 2021-12-14 | Outpatient (CLI) | payer MEDICARE, OTHER | LOC: M WHC 07:55 | PROVIDERS: ATTEND Advanced Practice Midwife | DX: Z12.31 Encounter for screening mammogram for malignant neoplasm of breast (principal) ==

== ENCOUNTER → 2021-12-14 | Outpatient (CLI) | payer MEDICARE, OTHER | LOC: M WHC 07:52 | PROVIDERS: ATTEND Internal Medicine Gastroenterology | DX: K74.60 Unspecified cirrhosis of liver (principal) ==

== ENCOUNTER 2022-01-10 15:31 | Inpatient (IN) | payer MEDICARE, OTHER ==
[~2022-01-10] VITALS: Ht 165.1 cm; Wt 112.8 kg
[2022-01-10] MEDS ORDERED: METO25TA (15:48)
[2022-01-10 17:02] LABS: VENOUS BASE EXCESS 1.5 (-2.0-2.0); VENOUS HCO3 26.8 MEQ/L (23.0-27.0); VENOUS O2 SATURATION 57.9 % (60.0-80.0); VENOUS PARTIAL PRESSURE CO2 44.9 mmHg (38.0-50.0); VENOUS PARTIAL PRESSURE O2 31.9 mmHg (30.0-50.0); VENOUS PH 7.394 UNITS (7.330-7.430); VENOUS STANDARD HCO3 24.9 MEQ/L; VENOUS TOTAL CO2 28.2 MEQ/L (24.0-28.0)
[2022-01-10 17:17] LABS: BASO # 0.1 10^3/uL (0.0-0.2); BASO % 0.5 % (0.0-1.0); EOS # 0.4 10^3/uL (0.0-0.5); EOS % 3.8 % (0.0-3.0); HEMATOCRIT 35.3 % (36.0-47.0); HEMOGLOBIN 12.1 g/dl (12.0-15.5); LYMPH # 0.7 10^3/uL (1.5-5.0); LYMPH % 6.6 % (24.0-44.0); MEAN CORPUSCULAR HEMOGLOBIN 28.7 pg (27.0-33.0); MEAN CORPUSCULAR HGB CONC 34.3 g/dl (32.0-36.5); MEAN CORPUSCULAR VOLUME 83.8 fl (80.0-96.0); MONO # 0.5 10^3/uL (0.0-0.8); MONO % 5.2 % (2.0-8.0); NEUTROPHILS # 8.4 10^3/uL (1.5-8.5); NEUTROPHILS % 83.4 % (36.0-66.0); PLATELET COUNT, AUTOMATED 116 10^3/uL (150-450); RED BLOOD COUNT 4.21 10^6/uL (4.00-5.40); WHITE BLOOD COUNT 10.1 10^3/uL (4.0-10.0)
[2022-01-10 17:52] LABS: RSV AMPLIFICATION NEGATIVE (NEGATIVE)
[2022-01-10 17:52] LABS: ALBUMIN 3.8 GM/DL (3.2-5.2); CALCIUM LEVEL 9.6 MG/DL (8.8-10.2); CREATININE FOR GFR 3.48 MG/DL (0.55-1.30); GLOMERULAR FILTRATION RATE 13.8 (>39); POTASSIUM SERUM 4.6 MEQ/L (3.5-5.1); THYROID STIMULATING HORMONE 1.04 uIU/ML (0.358-3.740)
[2022-01-10] MEDS ORDERED: NS 1,000 ML IV SCH (18:10)
[2022-01-10] MEDS ORDERED: PANT-23 PO (20:12)
[2022-01-10] MEDS ORDERED: VITA400C53 PO (20:12)
[2022-01-10 20:16] LABS: PROTEIN, URINE AUTO TRACE mg/dL (NEGATIVE)
[2022-01-10] MEDS ORDERED: TRIA1CR80 TOP (20:23)
[2022-01-10] MEDS ORDERED: HOME MED LIST COMPLETE! XX SCH (20:25)
[2022-01-10] MEDS ORDERED: DEXTROSE 50% 50 ML SYRINGE IV PRN (20:30)
[2022-01-10] MEDS ORDERED: GLUCAGON INJ 1MG VIAL SC PRN (20:30)
[2022-01-10] MEDS ORDERED: GLUCOSE 4GM CHEW TABLET PO PRN (20:30)
[2022-01-10 20:32] LABS: OSMOLALITY URINE 306 MOSM/KG (50-1400)
[2022-01-10 20:46] LABS: CREATININE,RANDOM URINE 71.5 MG/DL; POTASSIUM RANDOM URINE 29.1 MEQ/L; SODIUM,RANDOM URINE 22 MEQ/L
[2022-01-10] MEDS ORDERED: ACETAMINOPHEN TAB 650MG DOSE (2X325MG) PO PRN (20:55)
[2022-01-10] MEDS: INSULIN LISPRO (NovoLOG) PER UNIT SC SCH ×2 (21:00→22:26)
[2022-01-10] MEDS: NS 1,000 ML IV SCH (21:03)
[2022-01-10 21:39] LABS: CHOLESTEROL RISK RATIO 1.773 (<5)
[2022-01-10 21:59] LABS: HEMOGLOBIN A1c 6.7 %
[2022-01-10 22:15] LABS: MAGNESIUM LEVEL 3.5 MG/DL (1.8-2.4); URIC ACID 10.4 MG/DL (2.6-6.0)
[2022-01-10 22:25] VITALS: BP 159/60
[2022-01-10] MEDS: PANTOPRAZOLE 40MG TAB (PROTONIX) PO SCH (22:33)
[2022-01-10] MEDS: LACTULOSE 20 GM/30 ML SYRUP UD PO SCH (22:33)
[2022-01-10] MEDS: rifAXIMin 550 MG TAB (XIFAXAN) PO SCH (22:33)
[2022-01-10] MEDS ORDERED: PROCHLORPERAZINE 10MG 2ML VIAL IV PRN (23:40)
[2022-01-11] MEDS: NS 1,000 ML IV SCH ×2 (04:01→15:33)
[2022-01-11 05:40] VITALS: BP_SYST 125; BP_SYST 145; BP_SYST 147; BP_DIAS 63; BP_DIAS 65
[2022-01-11 06:00] VITALS: BP 147/63
[2022-01-11 06:21] LABS: HEMATOCRIT 30.4 % (36.0-47.0); HEMOGLOBIN 10.3 g/dl (12.0-15.5); MEAN CORPUSCULAR HEMOGLOBIN 29.3 pg (27.0-33.0); MEAN CORPUSCULAR HGB CONC 33.9 g/dl (32.0-36.5); MEAN CORPUSCULAR VOLUME 86.6 fl (80.0-96.0); RED BLOOD COUNT 3.51 10^6/uL (4.00-5.40); WHITE BLOOD COUNT 7.4 10^3/uL (4.0-10.0)
[2022-01-11 06:45] LABS: ALBUMIN 3.2 GM/DL (3.2-5.2); CALCIUM LEVEL 8.9 MG/DL (8.8-10.2); CREATININE FOR GFR 3.25 MG/DL (0.55-1.30); GLOMERULAR FILTRATION RATE 14.9 (>39); MAGNESIUM LEVEL 3.2 MG/DL (1.8-2.4); POTASSIUM SERUM 4.1 MEQ/L (3.5-5.1); TOTAL PROTEIN 5.6 GM/DL (6.4-8.2)
[2022-01-11 07:04] LABS: PLATELET COUNT, AUTOMATED 95 10^3/uL (150-450)
[2022-01-11] MEDS ORDERED: HEPARIN SOD (PORCINE) 5000UNITS/ML 1ML VIAL/SYRINGE SC SCH (09:00)
[2022-01-11] MEDS: FERROUS GLUCONATE 324 MG TAB PO SCH ×2 (09:13→21:48)
[2022-01-11] MEDS: LACTULOSE 20 GM/30 ML SYRUP UD PO SCH ×3 (09:13→21:00)
[2022-01-11] MEDS: PANTOPRAZOLE 40MG TAB (PROTONIX) PO SCH ×2 (09:13→21:48)
[2022-01-11] MEDS: INSULIN LISPRO (NovoLOG) PER UNIT SC SCH ×4 (09:13→21:48)
[2022-01-11] MEDS: VITAMIN D 1,000 INTERNATIONAL UNITS TABLET PO SCH (09:13)
[2022-01-11] MEDS: rifAXIMin 550 MG TAB (XIFAXAN) PO SCH ×2 (09:13→21:48)
[2022-01-11] MEDS ORDERED: FLUBLOK(EGG FREE)(QUAD)INFLUENZA VACC 0.5ML SYRINGE 18YRS & OLDER IM.IMMUN ONE (11:00)
[2022-01-11 13:57] VITALS: BP 130/64
[2022-01-11 20:00] VITALS: BP 128/57
[2022-01-11] MEDS: LEVEMIR (INSULIN DETEMIR) 1 UNITS/0.01ML SC SCH (21:49)
[2022-01-12 06:00] VITALS: BP 155/76
[2022-01-12 06:48] LABS: HEMATOCRIT 25.8 % (36.0-47.0); MEAN CORPUSCULAR HGB CONC 34.9 g/dl (32.0-36.5); WHITE BLOOD COUNT 6.7 10^3/uL (4.0-10.0)
[2022-01-12 07:11] LABS: CALCIUM LEVEL 8.1 MG/DL (8.8-10.2); CREATININE FOR GFR 2.97 MG/DL (0.55-1.30); GLOMERULAR FILTRATION RATE 16.6 (>39); MAGNESIUM LEVEL 2.8 MG/DL (1.8-2.4); PHOSPHORUS LEVEL 3.8 MG/DL (2.5-4.9); POTASSIUM SERUM 3.9 MEQ/L (3.5-5.1)
[2022-01-12 07:24] LABS: PLATELET COUNT, AUTOMATED 60 10^3/uL (150-450)
[2022-01-12] MEDS: INSULIN LISPRO (NovoLOG) PER UNIT SC SCH ×5 (08:35→21:00)
[2022-01-12] MEDS: VITAMIN D 1,000 INTERNATIONAL UNITS TABLET PO SCH (08:36)
[2022-01-12] MEDS: PANTOPRAZOLE 40MG TAB (PROTONIX) PO SCH ×2 (08:36→21:51)
[2022-01-12] MEDS: FERROUS GLUCONATE 324 MG TAB PO SCH ×2 (08:36→21:51)
[2022-01-12] MEDS: LEVEMIR (INSULIN DETEMIR) 1 UNITS/0.01ML SC SCH ×2 (08:36→21:50)
[2022-01-12] MEDS: LACTULOSE 20 GM/30 ML SYRUP UD PO SCH ×4 (08:36→21:00)
[2022-01-12] MEDS: rifAXIMin 550 MG TAB (XIFAXAN) PO SCH ×2 (08:36→21:50)
[2022-01-12 08:43] LABS: TOTAL 25(OH) VITAMIN D 36.7 NG/ML (30.0-100.0)
[2022-01-12 14:00] VITALS: BP 145/65
[2022-01-12 15:49] LABS: CALCIUM LEVEL 8.5 MG/DL (8.8-10.2); CREATININE FOR GFR 2.96 MG/DL (0.55-1.30); GLOMERULAR FILTRATION RATE 16.6 (>39)
[2022-01-12 17:37] VITALS: BP_SYST 102; BP_SYST 110; BP_SYST 114; BP_DIAS 63; BP_DIAS 65; BP_DIAS 66
[2022-01-12 21:40] VITALS: BP 141/61
[2022-01-12 23:13] VITALS: BP_SYST 133; BP_SYST 139; BP_SYST 142; BP_DIAS 61; BP_DIAS 64; BP_DIAS 65
[2022-01-13 04:45] VITALS: BP 123/49
[2022-01-13 05:57] LABS: HEMATOCRIT 24.8 % (36.0-47.0); HEMOGLOBIN 8.4 g/dl (12.0-15.5); MEAN CORPUSCULAR HEMOGLOBIN 29.7 pg (27.0-33.0); MEAN CORPUSCULAR HGB CONC 33.9 g/dl (32.0-36.5); MEAN CORPUSCULAR VOLUME 87.6 fl (80.0-96.0); RED BLOOD COUNT 2.83 10^6/uL (4.00-5.40); WHITE BLOOD COUNT 4.8 10^3/uL (4.0-10.0)
[2022-01-13 05:59] LABS: PLATELET COUNT, AUTOMATED 59 10^3/uL (150-450)
[2022-01-13 06:28] LABS: CALCIUM LEVEL 8.1 MG/DL (8.8-10.2); CREATININE FOR GFR 2.73 MG/DL (0.55-1.30); GLOMERULAR FILTRATION RATE 18.3 (>39); MAGNESIUM LEVEL 2.7 MG/DL (1.8-2.4); PHOSPHORUS LEVEL 3.9 MG/DL (2.5-4.9); POTASSIUM SERUM 3.7 MEQ/L (3.5-5.1)
[2022-01-13] MEDS ORDERED: LASI40TA9 PO (07:51)
[2022-01-13] MEDS: FERROUS GLUCONATE 324 MG TAB PO SCH (08:53)
[2022-01-13] MEDS: LEVEMIR (INSULIN DETEMIR) 1 UNITS/0.01ML SC SCH (08:53)
[2022-01-13] MEDS: PANTOPRAZOLE 40MG TAB (PROTONIX) PO SCH (08:54)
[2022-01-13] MEDS: rifAXIMin 550 MG TAB (XIFAXAN) PO SCH (08:54)
[2022-01-13] MEDS: VITAMIN D 1,000 INTERNATIONAL UNITS TABLET PO SCH (09:11)
[2022-01-13] MEDS: LACTULOSE 20 GM/30 ML SYRUP UD PO SCH (09:11)
[2022-01-13] MEDS ORDERED: LACT20EL PO (09:22)
[2022-01-13 10:17] VITALS: BP 146/66
[2022-01-13] MEDS: INSULIN LISPRO (NovoLOG) PER UNIT SC SCH (12:00)
== END 2022-01-13 12:16 | disposition home or self-care (01) | DRG 71 ==
LOC: M ED 15:31 → M ED INP 20:52 → M MSPAV 22:17
PROVIDERS: ADMIT Family Medicine; ATTEND Internal Medicine
DX: G93.41 Metabolic encephalopathy (principal); N17.9 Acute kidney failure, unspecified; I50.32 Chronic diastolic (congestive) heart failure; E72.20 Disorder of urea cycle metabolism, unspecified; Z68.41 Body mass index [BMI] 40.0-44.9, adult; N18.31 Chronic kidney disease, stage 3a; R74.01 Elevation of levels of liver transaminase levels; E11.22 Type 2 diabetes mellitus with diabetic chronic kidney disease; D64.9 Anemia, unspecified; D72.829 Elevated white blood cell count, unspecified; D69.6 Thrombocytopenia, unspecified; E66.9 Obesity, unspecified; F32.A Depression, unspecified; F41.9 Anxiety disorder, unspecified; K21.9 Gastro-esophageal reflux disease without esophagitis; Z20.822 Contact with and (suspected) exposure to COVID-19; Z79.4 Long term (current) use of insulin; Z79.899 Other long term (current) drug therapy; Z88.1 Allergy status to other antibiotic agents; Z88.2 Allergy status to sulfonamides; Z88.8 Allergy status to other drugs, medicaments and biological substances; Z91.018 Allergy to other foods; M19.90 Unspecified osteoarthritis, unspecified site; Z90.79 Acquired absence of other genital organ(s); Z90.49 Acquired absence of other specified parts of digestive tract; Z96.641 Presence of right artificial hip joint; I95.1 Orthostatic hypotension; E21.1 Secondary hyperparathyroidism, not elsewhere classified; K70.30 Alcoholic cirrhosis of liver without ascites

== ENCOUNTER → 2022-01-19 | Outpatient (REF) | payer MEDICARE, OTHER ==
[~2022-01-19] MED LIST changes: +LACT20EL PO; +LASI40TA9 PO; +METO25TA; +TRIA1CR80 TOP; +VITA400C53 PO
[2022-01-19 17:56] LABS: BILIRUBIN,TOTAL 1.8 MG/DL (0.2-1.0); CALCIUM LEVEL 9.1 MG/DL (8.8-10.2); CREATININE FOR GFR 2.26 MG/DL (0.55-1.30); GLOMERULAR FILTRATION RATE 22.7 (>39); MAGNESIUM LEVEL 2.3 MG/DL (1.8-2.4); POTASSIUM SERUM 4.4 MEQ/L (3.5-5.1); TOTAL PROTEIN 5.4 GM/DL (6.4-8.2)
== END ==
LOC: M SFHCCLAY 10:31
PROVIDERS: ATTEND Family Medicine
DX: E83.41 Hypermagnesemia (principal); N17.9 Acute kidney failure, unspecified

== ENCOUNTER 2022-01-30 23:08 | Inpatient (IN) | payer MEDICARE, OTHER ==
[~2022-01-30] VITALS: Ht 165.1 cm; Wt 113.6 kg
[2022-01-30] MEDS ORDERED: ACETAMINOPHEN 325 MG TAB As Ordered ONE (23:31)
[2022-01-30] MEDS ORDERED: ACETAMINOPHEN TAB 650MG DOSE (2X325MG) PO ONE (23:35)
[2022-01-30 23:49] LABS: BASO % 0.2 % (0.0-1.0); EOS # 0.1 10^3/uL (0.0-0.5); EOS % 1.3 % (0.0-3.0); HEMATOCRIT 24.6 % (36.0-47.0); LYMPH # 0.1 10^3/uL (1.5-5.0); MEAN CORPUSCULAR HEMOGLOBIN 28.6 pg (27.0-33.0); MEAN CORPUSCULAR HGB CONC 32.5 g/dl (32.0-36.5); MEAN CORPUSCULAR VOLUME 87.9 fl (80.0-96.0); MONO % 0.7 % (2.0-8.0); NEUTROPHILS # 4.4 10^3/uL (1.5-8.5); NEUTROPHILS % 95.1 % (36.0-66.0); PLATELET COUNT, AUTOMATED 104 10^3/uL (150-450); WHITE BLOOD COUNT 4.6 10^3/uL (4.0-10.0)
[2022-01-30] MEDS ORDERED: NS 1,000 ML IV ONE (23:50)
[2022-01-31 00:22] LABS: ALBUMIN 2.8 GM/DL (3.2-5.2); BILIRUBIN,DIRECT 0.7 MG/DL (0.0-0.2); BILIRUBIN,TOTAL 1.6 MG/DL (0.2-1.0); C REACTIVE PROTEIN QUANTITATIV 1.06 MG/DL (0.00-0.30); CALCIUM LEVEL 8.7 MG/DL (8.8-10.2); CREATININE FOR GFR 1.77 MG/DL (0.55-1.30); GLOMERULAR FILTRATION RATE 30.1 (>39); POTASSIUM SERUM 3.8 MEQ/L (3.5-5.1); TOTAL PROTEIN 5.4 GM/DL (6.4-8.2)
[2022-01-31 00:25] LABS: INR 1.29; PARTIAL THROMBOPLASTIN TIME 25.7 SECONDS (24.8-34.2); PROTHROMBIN TIME 16.3 SECONDS (12.5-14.5)
[2022-01-31] MEDS ORDERED: cefTRIAXone SOD 2 GM in D5W MINI-BAG PLUS 50 ML IV ONE (01:15)
[2022-01-31] MEDS ORDERED: AZITHROMYCIN INJ 500 MG, VIAL MATE ADAPTER 1 EACH in D5W 250 ML IV ONE (01:15)
[2022-01-31] MEDS ORDERED: SPIR50TA4 PO (03:49)
[2022-01-31] MEDS ORDERED: PROC1CRE5 PR (03:49)
[2022-01-31] MEDS ORDERED: MAGN400T35 PO (03:49)
[2022-01-31] MEDS ORDERED: FERR32TA PO (03:49)
[2022-01-31] MEDS ORDERED: FURO40TA2 PO (03:49)
[2022-01-31] MEDS ORDERED: LACT20EL PO (03:49)
[2022-01-31] MEDS ORDERED: HOME MED LIST COMPLETE! XX SCH (03:50)
[2022-01-31] MEDS ORDERED: DEXTROSE 50% 50 ML SYRINGE IV PRN (07:30)
[2022-01-31] MEDS ORDERED: GLUCAGON INJ 1MG VIAL SC PRN (07:30)
[2022-01-31] MEDS ORDERED: GLUCOSE 4GM CHEW TABLET PO PRN (07:30)
[2022-01-31] MEDS ORDERED: ANUSOL HC CREAM 30GM PR PRN (07:30)
[2022-01-31] MEDS: INSULIN LISPRO (NovoLOG) PER UNIT SC SCH ×5 (07:30→18:37)
[2022-01-31] MEDS: LEVALBUTEROL 1.25 MG/0.5 ML CONCENTRATE NEB INH SCH ×3 (08:00→20:42)
[2022-01-31 08:50] LABS: BASO % 0.1 % (0.0-1.0); EOS % 0.1 % (0.0-3.0); HEMATOCRIT 21.3 % (36.0-47.0); LYMPH # 0.2 10^3/uL (1.5-5.0); LYMPH % 1.2 % (24.0-44.0); MEAN CORPUSCULAR HEMOGLOBIN 28.8 pg (27.0-33.0); MEAN CORPUSCULAR HGB CONC 32.4 g/dl (32.0-36.5); MEAN CORPUSCULAR VOLUME 88.8 fl (80.0-96.0); MONO # 0.8 10^3/uL (0.0-0.8); MONO % 5.8 % (2.0-8.0); NEUTROPHILS # 12.9 10^3/uL (1.5-8.5); NEUTROPHILS % 91.6 % (36.0-66.0); WHITE BLOOD COUNT 14.1 10^3/uL (4.0-10.0)
[2022-01-31 08:54] LABS: PLATELET COUNT, AUTOMATED 70 10^3/uL (150-450)
[2022-01-31 08:55] LABS: HEMOGLOBIN 6.9 g/dl (12.0-15.5)
[2022-01-31] MEDS ORDERED: VITAMIN D 1,000 INTERNATIONAL UNITS TABLET PO SCH (09:00)
[2022-01-31 09:29] LABS: ALBUMIN 2.2 GM/DL (3.2-5.2); BILIRUBIN,TOTAL 1.1 MG/DL (0.2-1.0); CALCIUM LEVEL 8.4 MG/DL (8.8-10.2); CREATININE FOR GFR 1.77 MG/DL (0.55-1.30); GLOMERULAR FILTRATION RATE 30.1 (>39); POTASSIUM SERUM 3.7 MEQ/L (3.5-5.1); TOTAL PROTEIN 4.9 GM/DL (6.4-8.2)
[2022-01-31] MEDS: LACTULOSE 20 GM/30 ML SYRUP UD PO SCH ×3 (10:29→21:25)
[2022-01-31] MEDS: PANTOPRAZOLE 40MG TAB (PROTONIX) PO SCH ×2 (10:30→21:25)
[2022-01-31] MEDS: MAGNESIUM OXIDE 400MG TAB (MAG-OX) PO SCH (10:30)
[2022-01-31] MEDS: SPIRONOLACTONE 50 MG TAB PO SCH (10:30)
[2022-01-31] MEDS: FUROSEMIDE 40 MG TAB PO SCH (10:30)
[2022-01-31] MEDS: CitaloPRAM (CeleXA) 20 MG TAB PO SCH (10:30)
[2022-01-31] MEDS: HEPARIN SOD (PORCINE) 5000UNITS/ML 1ML VIAL/SYRINGE SC SCH ×2 (10:31→10:35)
[2022-01-31] MEDS: rifAXIMin 550 MG TAB (XIFAXAN) PO SCH ×2 (10:32→22:13)
[2022-01-31] MEDS: FERROUS GLUCONATE 324 MG TAB PO SCH ×2 (10:35→22:13)
[2022-01-31 14:50] VITALS: BP 151/66
[2022-01-31 15:05] VITALS: BP 114/57
[2022-01-31 16:05] VITALS: BP 114/56
[2022-01-31 16:56] VITALS: BP 111/54
[2022-01-31 18:41] LABS: HEMATOCRIT 24.1 % (36.0-47.0); HEMOGLOBIN 7.8 g/dl (12.0-15.5)
[2022-01-31] MEDS ORDERED: AZITHROMYCIN 250MG TABLET PO SCH (21:00)
[2022-01-31] MEDS ORDERED: INSULIN LISPRO (NovoLOG) PER UNIT SC SCH (21:00)
[2022-01-31 21:54] VITALS: BP 160/52
[2022-01-31] MEDS ORDERED: cefTRIAXone SOD 1 GM in D5W MINI-BAG PLUS 50 ML IV SCH (22:00)
[2022-01-31 23:51] VITALS: BP 120/61
[2022-02-01] MEDS: LEVALBUTEROL 1.25 MG/0.5 ML CONCENTRATE NEB INH SCH ×3 (02:09→14:00)
[2022-02-01 04:31] VITALS: BP 150/67
[2022-02-01 05:20] LABS: BASO % 0.1 % (0.0-1.0); EOS # 0.2 10^3/uL (0.0-0.5); EOS % 2.4 % (0.0-3.0); HEMATOCRIT 22.5 % (36.0-47.0); HEMOGLOBIN 7.3 g/dl (12.0-15.5); LYMPH # 0.3 10^3/uL (1.5-5.0); LYMPH % 4.1 % (24.0-44.0); MEAN CORPUSCULAR HEMOGLOBIN 28.7 pg (27.0-33.0); MEAN CORPUSCULAR HGB CONC 32.4 g/dl (32.0-36.5); MEAN CORPUSCULAR VOLUME 88.6 fl (80.0-96.0); MONO # 0.6 10^3/uL (0.0-0.8); MONO % 7.6 % (2.0-8.0); NEUTROPHILS # 6.4 10^3/uL (1.5-8.5); NEUTROPHILS % 85.1 % (36.0-66.0); PLATELET COUNT, AUTOMATED 62 10^3/uL (150-450); RED BLOOD COUNT 2.54 10^6/uL (4.00-5.40); WHITE BLOOD COUNT 7.5 10^3/uL (4.0-10.0)
[2022-02-01 05:51] LABS: ALBUMIN 2.2 GM/DL (3.2-5.2); BILIRUBIN,TOTAL 0.9 MG/DL (0.2-1.0); CALCIUM LEVEL 8.5 MG/DL (8.8-10.2); CREATININE FOR GFR 2.06 MG/DL (0.55-1.30); GLOMERULAR FILTRATION RATE 25.3 (>39); MAGNESIUM LEVEL 2.2 MG/DL (1.8-2.4); POTASSIUM SERUM 3.4 MEQ/L (3.5-5.1); TOTAL PROTEIN 4.8 GM/DL (6.4-8.2)
[2022-02-01] MEDS ORDERED: POTASSIUM CHLORIDE 10MEQ SR TABLET PO ONE (07:25)
[2022-02-01 07:29] VITALS: BP 136/64
[2022-02-01] MEDS: INSULIN LISPRO (NovoLOG) PER UNIT SC SCH ×3 (07:30→12:06)
[2022-02-01] MEDS: FUROSEMIDE 40 MG TAB PO SCH (08:13)
[2022-02-01] MEDS: PANTOPRAZOLE 40MG TAB (PROTONIX) PO SCH (08:14)
[2022-02-01] MEDS: FERROUS GLUCONATE 324 MG TAB PO SCH (08:14)
[2022-02-01] MEDS: LACTULOSE 20 GM/30 ML SYRUP UD PO SCH (08:14)
[2022-02-01] MEDS: MAGNESIUM OXIDE 400MG TAB (MAG-OX) PO SCH (08:14)
[2022-02-01] MEDS: CitaloPRAM (CeleXA) 20 MG TAB PO SCH (08:14)
[2022-02-01] MEDS: rifAXIMin 550 MG TAB (XIFAXAN) PO SCH (08:14)
[2022-02-01] MEDS: SPIRONOLACTONE 50 MG TAB PO SCH (08:15)
[2022-02-01] MEDS ORDERED: KETOCONAZOLE 2% CREAM TOP SCH (09:00)
[2022-02-01] MEDS ORDERED: TRIAMCINOLONE ACET 0.1% CREAM 80 GM TOP SCH (09:00)
[2022-02-01 09:16] LABS: PERCENT SATURATION 16.3 % (13.2-45.0)
[2022-02-01] MEDS ORDERED: INSULIN LISPRO (NovoLOG) PER UNIT SC ONE (09:30)
[2022-02-01 12:00] VITALS: BP 136/62
[2022-02-01 13:27] LABS: HEMATOCRIT 23.7 % (36.0-47.0); HEMOGLOBIN 7.5 g/dl (12.0-15.5)
[2022-02-01] MEDS ORDERED: TRES1INJ SC (13:52)
[2022-02-01] MEDS ORDERED: FURO40TA2 PO (13:52)
[2022-02-01] MEDS ORDERED: ALBU6.7H6 INH (13:52)
[2022-02-01] MEDS ORDERED: AZIT-12 PO (13:52)
[2022-02-01] MEDS ORDERED: AMOX875T2 PO (13:52)
[2022-02-01] MEDS ORDERED: AZITHROMYCIN 250MG TABLET PO SCH (14:00)
[2022-02-01] MEDS ORDERED: AUGMENTIN 875 MG TAB PO ONE (15:00)
== END 2022-02-01 16:40 | disposition home or self-care (01) | DRG 194 ==
LOC: M ED 23:08 → EDBD 23:08 → M ED INP 01-31 02:08 → ENRESERV 01-31 21:07 → M PCU 01-31 21:55
PROVIDERS: ADMIT Family Medicine; ATTEND Family Medicine
PROC: 30233N1 Transfusion of Nonautologous Red Blood Cells into Peripheral Vein, Percutaneous Approach (ICD-10-PCS; principal; 2022-01-31)
DX: J18.9 Pneumonia, unspecified organism (principal); K86.2 Cyst of pancreas; Z68.41 Body mass index [BMI] 40.0-44.9, adult; E11.22 Type 2 diabetes mellitus with diabetic chronic kidney disease; K75.81 Nonalcoholic steatohepatitis (NASH); F41.9 Anxiety disorder, unspecified; F32.A Depression, unspecified; I50.9 Heart failure, unspecified; D69.6 Thrombocytopenia, unspecified; D64.9 Anemia, unspecified; K21.9 Gastro-esophageal reflux disease without esophagitis; M19.90 Unspecified osteoarthritis, unspecified site; Z90.79 Acquired absence of other genital organ(s); Z90.49 Acquired absence of other specified parts of digestive tract; Z96.641 Presence of right artificial hip joint; N18.9 Chronic kidney disease, unspecified; E66.9 Obesity, unspecified; Z20.822 Contact with and (suspected) exposure to COVID-19; Z79.4 Long term (current) use of insulin; Z79.899 Other long term (current) drug therapy; Z88.1 Allergy status to other antibiotic agents; Z88.2 Allergy status to sulfonamides; Z88.8 Allergy status to other drugs, medicaments and biological substances; Z91.018 Allergy to other foods; B34.9 Viral infection, unspecified; Z66 Do not resuscitate

== ENCOUNTER → 2022-02-02 | Outpatient (REF) | payer MEDICARE, OTHER ==
[~2022-02-02] MED LIST changes: +ALBU6.7H6 INH; +AMOX875T2 PO; +AZIT-12 PO; +MAGN400T35 PO; +PROC1CRE5 PR
[2022-02-02 12:15] LABS: BASO % 0.3 % (0.0-1.0); EOS # 0.4 10^3/uL (0.0-0.5); HEMATOCRIT 26.6 % (36.0-47.0); HEMOGLOBIN 8.3 g/dl (12.0-15.5); LYMPH # 0.4 10^3/uL (1.5-5.0); LYMPH % 5.2 % (24.0-44.0); MEAN CORPUSCULAR HEMOGLOBIN 27.9 pg (27.0-33.0); MEAN CORPUSCULAR HGB CONC 31.2 g/dl (32.0-36.5); MEAN CORPUSCULAR VOLUME 89.6 fl (80.0-96.0); MONO # 0.6 10^3/uL (0.0-0.8); MONO % 7.6 % (2.0-8.0); NEUTROPHILS # 6.1 10^3/uL (1.5-8.5); NEUTROPHILS % 81.4 % (36.0-66.0); RED BLOOD COUNT 2.97 10^6/uL (4.00-5.40); WHITE BLOOD COUNT 7.5 10^3/uL (4.0-10.0)
[2022-02-02 12:25] LABS: PLATELET COUNT, AUTOMATED 89 10^3/uL (150-450)
== END ==
LOC: M SFHCCLAY 09:41
PROVIDERS: ATTEND Family Medicine
DX: D69.6 Thrombocytopenia, unspecified (principal)

== ENCOUNTER → 2022-02-05 | Outpatient (REF) | payer MEDICARE, OTHER ==
[2022-02-05 17:56] LABS: BASO % 0.5 % (0.0-1.0); EOS # 0.3 10^3/uL (0.0-0.5); EOS % 3.5 % (0.0-3.0); HEMATOCRIT 26.6 % (36.0-47.0); HEMOGLOBIN 8.6 g/dl (12.0-15.5); LYMPH # 0.4 10^3/uL (1.5-5.0); LYMPH % 4.9 % (24.0-44.0); MEAN CORPUSCULAR HEMOGLOBIN 28.8 pg (27.0-33.0); MEAN CORPUSCULAR HGB CONC 32.3 g/dl (32.0-36.5); MONO # 0.5 10^3/uL (0.0-0.8); MONO % 6.3 % (2.0-8.0); NEUTROPHILS # 7.3 10^3/uL (1.5-8.5); NEUTROPHILS % 83.9 % (36.0-66.0); PLATELET COUNT, AUTOMATED 109 10^3/uL (150-450); RED BLOOD COUNT 2.99 10^6/uL (4.00-5.40); WHITE BLOOD COUNT 8.6 10^3/uL (4.0-10.0)
[2022-02-05 18:06] LABS: INR 1.2; PROTHROMBIN TIME 15.5 SECONDS (12.5-14.5)
== END ==
LOC: M SFHCCLAY 11:27
PROVIDERS: ATTEND Family Medicine
DX: D50.9 Iron deficiency anemia, unspecified (principal); K74.60 Unspecified cirrhosis of liver

== ENCOUNTER → 2022-02-27 | Outpatient (REF) | payer MEDICARE, OTHER ==
[2022-02-27 18:37] LABS: CALCIUM LEVEL 8.7 MG/DL (8.3-10.6); CREATININE FOR GFR 1.45 MG/DL (0.55-1.30); GLOMERULAR FILTRATION RATE 37.9 (>39); MAGNESIUM LEVEL 1.7 MG/DL (1.8-2.4); PHOSPHORUS LEVEL 3.1 MG/DL (2.4-5.1); POTASSIUM SERUM 4.2 MMOL/L (3.5-5.1)
== END ==
LOC: M LABDRAWC 16:33
PROVIDERS: ATTEND Internal Medicine Nephrology
DX: N17.9 Acute kidney failure, unspecified (principal)

== ENCOUNTER → 2022-03-21 | Outpatient (CLI) | payer MEDICARE, OTHER | LOC: M CARPUL 10:19 | PROVIDERS: ATTEND Internal Medicine Hematology | DX: I27.20 Pulmonary hypertension, unspecified (principal); I08.0 Rheumatic disorders of both mitral and aortic valves ==

== ENCOUNTER → 2022-04-04 | Outpatient (REF) | payer MEDICARE, OTHER ==
[2022-04-04 17:23] LABS: ALBUMIN 2.5 G/DL (3.2-5.2); BILIRUBIN,TOTAL 1.5 MG/DL (0.3-1.2); CALCIUM LEVEL 8.7 MG/DL (8.3-10.6); CREATININE FOR GFR 1.35 MG/DL (0.55-1.30); GLOMERULAR FILTRATION RATE 41.2 (>39); POTASSIUM SERUM 4.1 MMOL/L (3.5-5.1); TOTAL PROTEIN 5.1 G/DL (5.7-8.2)
[2022-04-04 18:30] LABS: HEMOGLOBIN A1c 6.3 % (4.0-6.0)
== END ==
LOC: M SFHCCLAY 16:40
PROVIDERS: ATTEND Family Medicine
DX: E11.9 Type 2 diabetes mellitus without complications (principal)

== ENCOUNTER → 2022-05-14 | Outpatient (REF) | payer MEDICARE, OTHER ==
[2022-05-14 17:39] LABS: IRON (FE) 71 UG/DL (50-170); PERCENT SATURATION 23.7 % (13.2-45.0); TOTAL IRON BINDING CAPACITY 300 UG/DL (250-425)
[2022-05-14 17:40] LABS: FERRITIN 24.8 NG/ML (7.3-270.7); FREE T4 0.92 NG/DL (0.89-1.76); THYROID STIMULATING HORMONE 1.615 uIU/ML (0.55-4.78)
[2022-05-14 17:42] LABS: HEMATOCRIT 32.2 % (36.0-47.0); HEMATOCRIT 32.8 % (36.0-47.0); HEMOGLOBIN 10.7 g/dl (12.0-15.5); MEAN CORPUSCULAR HEMOGLOBIN 28.2 pg (27.0-33.0); MEAN CORPUSCULAR HGB CONC 33.2 g/dl (32.0-36.5); MEAN CORPUSCULAR VOLUME 84.7 fl (80.0-96.0); WHITE BLOOD COUNT 6.6 10^3/uL (4.0-10.0)
[2022-05-14 17:44] LABS: VITAMIN B12 LEVEL > 2000 PG/ML (211-911)
[2022-05-14 17:46] LABS: PLATELET COUNT, AUTOMATED 88 10^3/uL (150-450)
== END ==
LOC: M SFHCPLAZ 10:08
PROVIDERS: ATTEND Internal Medicine Hematology
DX: D69.6 Thrombocytopenia, unspecified (principal)

== ENCOUNTER 2022-05-22 12:41 | Outpatient (CLI) | payer MEDICARE, OTHER ==
[~2022-05-22] VITALS: Ht 165.1 cm; Wt 111.1 kg
[~2022-05-22 12:41] MED LIST changes: +ALBUTEROL SULFATE 2.5MG/0.5ML INH NEB SOLN INH PRN; +EPINEPHrine INJ 1 MG/ML 1ML AMP IM PRN; +diphenhydrAMINE 50MG/ML VIAL IV PRN; +methylPREDNISolone 125MG 2ML VIAL IV PRN
[2022-05-22] MEDS ORDERED: NS 1,000 ML IV SCH (13:00)
[2022-05-22] MEDS ORDERED: FERRIC CARBOXYMALTOSE INJ 750 MG in NS 250 ML (>50kg) IV ONE ×3 (13:00)
[2022-05-22 13:24] VITALS: BP 173/75
[2022-05-22 14:39] VITALS: BP 148/67
== END 2022-05-22 14:40 | disposition home or self-care (01) ==
LOC: M INFU 12:41
PROVIDERS: ATTEND Internal Medicine Hematology
DX: E61.1 Iron deficiency (principal); Z88.2 Allergy status to sulfonamides; Z88.0 Allergy status to penicillin; Z88.8 Allergy status to other drugs, medicaments and biological substances
CPT/HCPCS: 96365; J1439

== ENCOUNTER → 2022-06-07 | Outpatient (REF) | payer MEDICARE, OTHER ==
[~2022-06-07] MED LIST changes: -ALBUTEROL SULFATE 2.5MG/0.5ML INH NEB SOLN INH PRN; -EPINEPHrine INJ 1 MG/ML 1ML AMP IM PRN; -diphenhydrAMINE 50MG/ML VIAL IV PRN; -methylPREDNISolone 125MG 2ML VIAL IV PRN
[2022-06-07 17:48] LABS: BASO % 0.6 % (0.0-1.0); EOS # 0.3 10^3/uL (0.0-0.5); EOS % 4.7 % (0.0-3.0); HEMATOCRIT 28.9 % (36.0-47.0); HEMOGLOBIN 9.7 g/dl (12.0-15.5); HEMOGLOBIN A1c 5.8 % (4.0-6.0); LYMPH # 0.5 10^3/uL (1.5-5.0); LYMPH % 8.1 % (24.0-44.0); MEAN CORPUSCULAR HEMOGLOBIN 29.2 pg (27.0-33.0); MEAN CORPUSCULAR HGB CONC 33.6 g/dl (32.0-36.5); MONO # 0.4 10^3/uL (0.0-0.8); MONO % 6.3 % (2.0-8.0); NEUTROPHILS # 5.2 10^3/uL (1.5-8.5); NEUTROPHILS % 79.8 % (36.0-66.0); PLATELET COUNT, AUTOMATED 83 10^3/uL (150-450); RED BLOOD COUNT 3.32 10^6/uL (4.00-5.40); WHITE BLOOD COUNT 6.5 10^3/uL (4.0-10.0)
[2022-06-07 18:14] LABS: ALBUMIN 2.7 G/DL (3.2-5.2); BILIRUBIN,TOTAL 2.2 MG/DL (0.3-1.2); CALCIUM LEVEL 8.7 MG/DL (8.3-10.6); CHOLESTEROL RISK RATIO 2.23 (<5); CREATININE FOR GFR 1.66 MG/DL (0.55-1.30); GLOMERULAR FILTRATION RATE 32.4 (>39); HDL CHOLESTEROL 68.5 MG/DL (>40); LDL CHOLESTEROL 70.9 MG/DL (<100); POTASSIUM SERUM 4.4 MMOL/L (3.5-5.1); TOTAL PROTEIN 5.2 G/DL (5.7-8.2)
== END ==
LOC: M SFHCCLAY 11:50
PROVIDERS: ATTEND Family Medicine
DX: D69.6 Thrombocytopenia, unspecified (principal); E11.9 Type 2 diabetes mellitus without complications; R35.0 Frequency of micturition

== ENCOUNTER 2022-06-15 13:35 | Inpatient (IN) | payer MEDICARE, OTHER ==
[~2022-06-15] VITALS: Ht 167.6 cm; Wt 113.0 kg
[2022-06-15 15:19] LABS: BASO % 0.2 % (0.0-1.0); EOS # 0.1 10^3/uL (0.0-0.5); EOS % 3.4 % (0.0-3.0); HEMATOCRIT 26.1 % (36.0-47.0); HEMOGLOBIN 8.6 g/dl (12.0-15.5); LYMPH # 0.2 10^3/uL (1.5-5.0); LYMPH % 5.8 % (24.0-44.0); MEAN CORPUSCULAR HEMOGLOBIN 28.7 pg (27.0-33.0); MONO # 0.3 10^3/uL (0.0-0.8); MONO % 7.3 % (2.0-8.0); NEUTROPHILS # 3.4 10^3/uL (1.5-8.5); NEUTROPHILS % 82.8 % (36.0-66.0); WHITE BLOOD COUNT 4.1 10^3/uL (4.0-10.0)
[2022-06-15 15:21] LABS: PLATELET COUNT, AUTOMATED 66 10^3/uL (150-450)
[2022-06-15 15:21] LABS: APPEARANCE, URINE CLOUDY (CLEAR); BACTERIA, URINE AUTO 1+ (NEGATIVE); BILIRUBIN, URINE AUTO NEGATIVE (NEGATIVE); BLOOD, URINE BLOOD 2+ (NEGATIVE); COLOR, URINE AMBER (YELLOW); GLUCOSE, URINE (UA) AUTO 1+ mg/dL (NEGATIVE); KETONE, URINE AUTO TRACE mg/dL (NEGATIVE); LEUKOCYTE ESTERASE, URINE AUTO 3+ (NEGATIVE); MUCUS, URINE SMALL (NEGATIVE); NITRITE, URINE AUTO NEGATIVE (NEGATIVE); PROTEIN, URINE AUTO NEGATIVE (NEGATIVE); RBC, URINE AUTO 44 /HPF (0-3); SPECIFIC GRAVITY URINE AUTO 1.011 (1.002-1.035); SQUAMOUS EPITHELIAL CELL UR AU 9 /HPF (0-6); UROBILINOGEN, URINE AUTO 0.2 mg/dL (0.0-2.0); WBC, URINE AUTO 13 /HPF (0-3)
[2022-06-15 15:28] LABS: INR 1.24; PROTHROMBIN TIME 15.9 SECONDS (12.5-14.5)
[2022-06-15 15:29] LABS: PARTIAL THROMBOPLASTIN TIME 29.7 SECONDS (24.8-34.2)
[2022-06-15 15:34] LABS: CK-MB VALUE MASS 1.5 NG/ML (<3.6)
[2022-06-15 15:36] LABS: CALCIUM LEVEL 8.5 MG/DL (8.3-10.6); CREATININE FOR GFR 1.53 MG/DL (0.55-1.30); GLOMERULAR FILTRATION RATE 35.6 (>39); MB/CK RELATIVE INDEX 2.41 (< OR =4); POTASSIUM SERUM 4.1 MMOL/L (3.5-5.1)
[2022-06-15 15:45] LABS: RSV AMPLIFICATION NEGATIVE (NEGATIVE)
[2022-06-15 16:43] LABS: CK-MB VALUE MASS 1.5 NG/ML (<3.6); MB/CK RELATIVE INDEX 1.66 (< OR =4)
[2022-06-15 17:46] VITALS: BP 154/71
[2022-06-15 18:02] VITALS: BP 140/65
[2022-06-15] MEDS ORDERED: CEFD300C41 PO (18:26)
[2022-06-15] MEDS ORDERED: BIOT1TAB PO (18:26)
[2022-06-15] MEDS ORDERED: TRES1INJ SC (18:26)
[2022-06-15] MEDS ORDERED: LACT20EL PO (18:26)
[2022-06-15] MEDS ORDERED: LASI40TA9 PO (18:26)
[2022-06-15] MEDS ORDERED: VITA-16 PO (18:26)
[2022-06-15] MEDS ORDERED: B COCAP4 PO (18:26)
[2022-06-15] MEDS ORDERED: HOME MED LIST COMPLETE! XX SCH (18:50)
[2022-06-15 19:03] VITALS: BP 166/70
[2022-06-15] MEDS ORDERED: CEFDINIR 300 MG CAP (OMNICEF) PO SCH (21:00)
[2022-06-15 21:40] VITALS: BP 130/61
[2022-06-15] MEDS ORDERED: GLUCAGON INJ 1MG VIAL SC PRN (22:45)
[2022-06-15] MEDS ORDERED: GLUCOSE 4GM CHEW TABLET PO PRN (22:45)
[2022-06-15] MEDS ORDERED: ANUSOL HC CREAM 30GM PR PRN (22:45)
[2022-06-15] MEDS ORDERED: DEXTROSE 50% 50ML SYRINGE IV PRN (22:45)
[2022-06-15] MEDS: LACTULOSE 20GM/30ML SYRUP UDC PO SCH (23:26)
[2022-06-15] MEDS: SIMETHICONE 80MG CHEW TAB PO PRN (23:27)
[2022-06-15] MEDS: rifAXIMin 550 MG TAB (XIFAXAN) PO SCH (23:27)
[2022-06-15] MEDS: PANTOPRAZOLE 40MG TAB (PROTONIX) PO SCH (23:27)
[2022-06-15] MEDS: CitaloPRAM (CeleXA) 10 MG TABLET PO SCH (23:27)
[2022-06-15] MEDS: LEVEMIR (INSULIN DETEMIR) 1 UNITS/0.01ML SC SCH (23:28)
[2022-06-16 05:40] VITALS: BP 132/59
[2022-06-16 06:23] LABS: BASO % 0.5 % (0.0-1.0); EOS # 0.2 10^3/uL (0.0-0.5); EOS % 4.5 % (0.0-3.0); HEMATOCRIT 26.3 % (36.0-47.0); HEMOGLOBIN 8.8 g/dl (12.0-15.5); LYMPH # 0.3 10^3/uL (1.5-5.0); LYMPH % 6.6 % (24.0-44.0); MEAN CORPUSCULAR HGB CONC 33.5 g/dl (32.0-36.5); MEAN CORPUSCULAR VOLUME 86.8 fl (80.0-96.0); MONO # 0.5 10^3/uL (0.0-0.8); MONO % 11.1 % (2.0-8.0); NEUTROPHILS # 3.3 10^3/uL (1.5-8.5); NEUTROPHILS % 77.1 % (36.0-66.0); RED BLOOD COUNT 3.03 10^6/uL (4.00-5.40); WHITE BLOOD COUNT 4.2 10^3/uL (4.0-10.0)
[2022-06-16 06:28] LABS: PLATELET COUNT, AUTOMATED 58 10^3/uL (150-450)
[2022-06-16 06:45] LABS: CALCIUM LEVEL 8.4 MG/DL (8.3-10.6); CREATININE FOR GFR 1.46 MG/DL (0.55-1.30); GLOMERULAR FILTRATION RATE 37.6 (>39); POTASSIUM SERUM 3.7 MMOL/L (3.5-5.1)
[2022-06-16] MEDS ORDERED: CEFDINIR 300 MG CAP (OMNICEF) PO SCH (09:00)
[2022-06-16] MEDS: LACTULOSE 20GM/30ML SYRUP UDC PO SCH ×2 (09:28→21:08)
[2022-06-16] MEDS: rifAXIMin 550 MG TAB (XIFAXAN) PO SCH ×2 (09:28→21:07)
[2022-06-16] MEDS: FERROUS GLUCONATE 324 MG TAB PO SCH ×3 (09:30→21:07)
[2022-06-16] MEDS: FUROSEMIDE 20 MG TAB PO SCH ×2 (09:31→17:26)
[2022-06-16] MEDS: SPIRONOLACTONE 50 MG TAB PO SCH ×2 (09:31→17:29)
[2022-06-16] MEDS: PANTOPRAZOLE 40MG TAB (PROTONIX) PO SCH ×2 (09:35→21:07)
[2022-06-16] MEDS: INSULIN LISPRO (NovoLOG) PER UNIT SC SCH ×3 (09:35→16:55)
[2022-06-16] MEDS: LEVEMIR (INSULIN DETEMIR) 1 UNITS/0.01ML SC SCH ×2 (09:36→21:00)
[2022-06-16 13:49] VITALS: BP 120/58
[2022-06-16 14:00] VITALS: BP 110/45
[2022-06-16 20:58] VITALS: BP 143/52
[2022-06-16] MEDS ORDERED: INSULIN LISPRO (NovoLOG) PER UNIT SC SCH (21:00)
[2022-06-16] MEDS: CitaloPRAM (CeleXA) 10 MG TABLET PO SCH (21:07)
[2022-06-16] MEDS: SIMETHICONE 80MG CHEW TAB PO PRN (21:20)
[2022-06-17] MEDS ORDERED: FLEET ENEMA PR ONE ×2 (04:00)
[2022-06-17 05:22] VITALS: BP 142/53
[2022-06-17 06:22] LABS: BASO % 0.4 % (0.0-1.0); EOS # 0.2 10^3/uL (0.0-0.5); EOS % 3.1 % (0.0-3.0); HEMATOCRIT 26.9 % (36.0-47.0); HEMOGLOBIN 9.1 g/dl (12.0-15.5); LYMPH # 0.3 10^3/uL (1.5-5.0); LYMPH % 6.6 % (24.0-44.0); MEAN CORPUSCULAR HEMOGLOBIN 29.3 pg (27.0-33.0); MEAN CORPUSCULAR HGB CONC 33.8 g/dl (32.0-36.5); MEAN CORPUSCULAR VOLUME 86.5 fl (80.0-96.0); MONO # 0.5 10^3/uL (0.0-0.8); MONO % 9.3 % (2.0-8.0); NEUTROPHILS # 3.9 10^3/uL (1.5-8.5); RED BLOOD COUNT 3.11 10^6/uL (4.00-5.40); WHITE BLOOD COUNT 4.8 10^3/uL (4.0-10.0)
[2022-06-17 06:28] LABS: PLATELET COUNT, AUTOMATED 59 10^3/uL (150-450)
[2022-06-17 06:43] LABS: CALCIUM LEVEL 8.4 MG/DL (8.3-10.6); CREATININE FOR GFR 1.42 MG/DL (0.55-1.30); GLOMERULAR FILTRATION RATE 38.8 (>39); POTASSIUM SERUM 3.7 MMOL/L (3.5-5.1)
[2022-06-17] MEDS: INSULIN LISPRO (NovoLOG) PER UNIT SC SCH (07:19)
[2022-06-17] MEDS ORDERED: propofoL 200 MG/20 ML VIAL As Ordered ONE (07:27)
[2022-06-17] MEDS ORDERED: DEXTROSE 50% 50ML SYRINGE IV STA (07:29)
[2022-06-17] MEDS ORDERED: D5W 1,000 ML IV SCH (07:50)
[2022-06-17] MEDS: LEVEMIR (INSULIN DETEMIR) 1 UNITS/0.01ML SC SCH (09:00)
[2022-06-17 09:10] VITALS: BP 127/69
[2022-06-17] MEDS: LACTULOSE 20GM/30ML SYRUP UDC PO SCH (10:26)
[2022-06-17] MEDS: FERROUS GLUCONATE 324 MG TAB PO SCH (10:26)
[2022-06-17] MEDS: PANTOPRAZOLE 40MG TAB (PROTONIX) PO SCH (10:27)
[2022-06-17] MEDS: SPIRONOLACTONE 50 MG TAB PO SCH (10:27)
[2022-06-17] MEDS: FUROSEMIDE 20 MG TAB PO SCH (10:27)
[2022-06-17] MEDS: rifAXIMin 550 MG TAB (XIFAXAN) PO SCH (10:27)
== END 2022-06-17 12:13 | disposition home or self-care (01) | DRG 378 ==
LOC: M ED 13:35 → M ED INP 18:14 → ENRESERV 19:42 → M MSPAV 21:38
PROVIDERS: ADMIT Internal Medicine Nephrology; ATTEND Internal Medicine Nephrology
PROC: 30233N1 Transfusion of Nonautologous Red Blood Cells into Peripheral Vein, Percutaneous Approach (ICD-10-PCS; principal; 2022-06-15)
PROC: 0DJD8ZZ Inspection of Lower Intestinal Tract, Via Natural or Artificial Opening Endoscopic (ICD-10-PCS; 2022-06-17)
DX: K92.2 Gastrointestinal hemorrhage, unspecified (principal); A04.0 Enteropathogenic Escherichia coli infection; N82.3 Fistula of vagina to large intestine; Z68.41 Body mass index [BMI] 40.0-44.9, adult; I50.32 Chronic diastolic (congestive) heart failure; D62 Acute posthemorrhagic anemia; I13.0 Hypertensive heart and chronic kidney disease with heart failure and stage 1 through stage 4 chronic kidney disease, or unspecified chronic kidney disease; K74.60 Unspecified cirrhosis of liver; Z96.89 Presence of other specified functional implants; D69.6 Thrombocytopenia, unspecified; E66.01 Morbid (severe) obesity due to excess calories; E11.22 Type 2 diabetes mellitus with diabetic chronic kidney disease; R15.9 Full incontinence of feces; D50.9 Iron deficiency anemia, unspecified; K21.9 Gastro-esophageal reflux disease without esophagitis; K44.9 Diaphragmatic hernia without obstruction or gangrene; D63.8 Anemia in other chronic diseases classified elsewhere; I35.0 Nonrheumatic aortic (valve) stenosis; K64.9 Unspecified hemorrhoids; I27.20 Pulmonary hypertension, unspecified; I50.810 Right heart failure, unspecified; N18.30 Chronic kidney disease, stage 3 unspecified; F41.8 Other specified anxiety disorders; M19.90 Unspecified osteoarthritis, unspecified site; Z90.49 Acquired absence of other specified parts of digestive tract; Z90.79 Acquired absence of other genital organ(s); Z96.641 Presence of right artificial hip joint; Z79.4 Long term (current) use of insulin; Z79.899 Other long term (current) drug therapy; Z88.1 Allergy status to other antibiotic agents; Z88.2 Allergy status to sulfonamides; Z88.8 Allergy status to other drugs, medicaments and biological substances; Z91.018 Allergy to other foods; Z20.822 Contact with and (suspected) exposure to COVID-19

== ENCOUNTER → 2022-06-19 | Outpatient (REF) | payer MEDICARE, OTHER ==
[~2022-06-19] MED LIST changes: +B COCAP4 PO; +BIOT1TAB PO; +CEFD300C41 PO; +VITA-16 PO
[2022-06-19 18:14] LABS: BASO % 0.6 % (0.0-1.0); EOS # 0.4 10^3/uL (0.0-0.5); EOS % 5.9 % (0.0-3.0); HEMATOCRIT 29.3 % (36.0-47.0); HEMOGLOBIN 9.9 g/dl (12.0-15.5); LYMPH # 0.7 10^3/uL (1.5-5.0); LYMPH % 10.3 % (24.0-44.0); MEAN CORPUSCULAR HEMOGLOBIN 29.5 pg (27.0-33.0); MEAN CORPUSCULAR HGB CONC 33.8 g/dl (32.0-36.5); MEAN CORPUSCULAR VOLUME 87.2 fl (80.0-96.0); MONO # 0.5 10^3/uL (0.0-0.8); MONO % 8.4 % (2.0-8.0); NEUTROPHILS # 4.7 10^3/uL (1.5-8.5); NEUTROPHILS % 74.3 % (36.0-66.0); RED BLOOD COUNT 3.36 10^6/uL (4.00-5.40); WHITE BLOOD COUNT 6.3 10^3/uL (4.0-10.0)
[2022-06-19 18:17] LABS: PLATELET COUNT, AUTOMATED 85 10^3/uL (150-450)
== END ==
LOC: M SFHCCLAY 10:32
PROVIDERS: ATTEND Family Medicine
DX: D50.9 Iron deficiency anemia, unspecified (principal)

== ENCOUNTER 2022-06-26 23:08 | Inpatient (IN) | payer MEDICARE, OTHER ==
[~2022-06-26] VITALS: Ht 167.6 cm; Wt 116.4 kg
[2022-06-27] VITALS (8 sets, daily range): BP systolic 120–148; BP diastolic 56–67
[2022-06-27 00:22] LABS: BASO % 0.7 % (0.0-1.0); EOS # 0.4 10^3/uL (0.0-0.5); HEMATOCRIT 27.7 % (36.0-47.0); HEMOGLOBIN 9.1 g/dl (12.0-15.5); LYMPH # 0.5 10^3/uL (1.5-5.0); LYMPH % 8.3 % (24.0-44.0); MEAN CORPUSCULAR HEMOGLOBIN 28.5 pg (27.0-33.0); MEAN CORPUSCULAR HGB CONC 32.9 g/dl (32.0-36.5); MEAN CORPUSCULAR VOLUME 86.8 fl (80.0-96.0); MONO # 0.5 10^3/uL (0.0-0.8); MONO % 8.6 % (2.0-8.0); NEUTROPHILS # 4.7 10^3/uL (1.5-8.5); NEUTROPHILS % 75.9 % (36.0-66.0); PLATELET COUNT, AUTOMATED 84 10^3/uL (150-450); RED BLOOD COUNT 3.19 10^6/uL (4.00-5.40); WHITE BLOOD COUNT 6.1 10^3/uL (4.0-10.0)
[2022-06-27 00:26] LABS: ALBUMIN 2.9 G/DL (3.2-5.2); BILIRUBIN,DIRECT 0.6 MG/DL (<0.4); CALCIUM LEVEL 8.6 MG/DL (8.3-10.6); CK-MB VALUE MASS 1.3 NG/ML (<3.6); CREATININE FOR GFR 1.48 MG/DL (0.55-1.30); MB/CK RELATIVE INDEX 2.03 (< OR =4)
[2022-06-27 01:12] LABS: INR 1.31; PARTIAL THROMBOPLASTIN TIME 31.2 SECONDS (24.8-34.2); PROTHROMBIN TIME 16.5 SECONDS (12.5-14.5)
[2022-06-27] MEDS ORDERED: ISOVUE-370 76% 100ML VIAL As Ordered ONE (01:21)
[2022-06-27] MEDS ORDERED: PIPERACILLIN/TAZOBACTAM SOD 3.375 GM in D5W MINI-BAG PLUS 50 ML IV ONE (04:00)
[2022-06-27] MEDS ORDERED: METOCLOPRAMIDE INJ 10MG/2ML VIAL IV PRN (05:10)
[2022-06-27] MEDS ORDERED: GLUCOSE 4GM CHEW TABLET PO PRN (05:10)
[2022-06-27] MEDS: LR 1,000 ML IV SCH ×2 (05:10→17:00)
[2022-06-27] MEDS ORDERED: GLUCAGON INJ 1MG VIAL SC PRN (05:10)
[2022-06-27] MEDS ORDERED: TRANEXAMIC ACID INJection 1,000 MG in D5W 100 ML IV ONE (05:10)
[2022-06-27] MEDS ORDERED: NS 500 ML IV ONE (06:10)
[2022-06-27] MEDS ORDERED: VITA-148 PO (06:28)
[2022-06-27] MEDS ORDERED: ASCO500T PO (06:28)
[2022-06-27] MEDS ORDERED: HOME MED LIST COMPLETE! XX SCH (06:30)
[2022-06-27] MEDS: OCTREOTIDE ACETATE 100MCG/ML VIAL **IV ADMINISTRATION ONLY IV SCH ×4 (07:24→23:36)
[2022-06-27] MEDS: INSULIN LISPRO (NovoLOG) PER UNIT SC SCH ×4 (07:25→23:32)
[2022-06-27 07:29] LABS: HEMATOCRIT 26.2 % (36.0-47.0); HEMOGLOBIN 8.8 g/dl (12.0-15.5); MEAN CORPUSCULAR HEMOGLOBIN 29.1 pg (27.0-33.0); MEAN CORPUSCULAR HGB CONC 33.6 g/dl (32.0-36.5); MEAN CORPUSCULAR VOLUME 86.8 fl (80.0-96.0); RED BLOOD COUNT 3.02 10^6/uL (4.00-5.40); WHITE BLOOD COUNT 6.2 10^3/uL (4.0-10.0)
[2022-06-27 07:55] LABS: PLATELET COUNT, AUTOMATED 77 10^3/uL (150-450)
[2022-06-27 07:59] LABS: ALBUMIN 2.7 G/DL (3.2-5.2); CALCIUM LEVEL 8.6 MG/DL (8.3-10.6); CREATININE FOR GFR 1.45 MG/DL (0.55-1.30); GLOMERULAR FILTRATION RATE 37.9 (>39); POTASSIUM SERUM 3.9 MMOL/L (3.5-5.1); TOTAL PROTEIN 4.8 G/DL (5.7-8.2)
[2022-06-27] MEDS: PANTOPRAZOLE 40MG VIAL IV SCH (10:11)
[2022-06-27] MEDS: PIPERACILLIN/TAZOBACTAM SOD 3.375 GM in D5W MINI-BAG PLUS 50 ML IV SCH ×3 (10:12→21:29)
[2022-06-27 12:06] LABS: ALBUMIN 2.6 G/DL (3.2-5.2); BILIRUBIN,TOTAL 1.7 MG/DL (0.3-1.2); CALCIUM LEVEL 8.2 MG/DL (8.3-10.6); CREATININE FOR GFR 1.45 MG/DL (0.55-1.30); GLOMERULAR FILTRATION RATE 37.9 (>39); POTASSIUM SERUM 4.2 MMOL/L (3.5-5.1); TOTAL PROTEIN 4.7 G/DL (5.7-8.2)
[2022-06-27] MEDS: ONDANSETRON 4MG 2ML VIAL IV PRN (13:45)
[2022-06-27 14:08] LABS: HEMATOCRIT 25.7 % (36.0-47.0); HEMOGLOBIN 8.5 g/dl (12.0-15.5); MEAN CORPUSCULAR HGB CONC 33.1 g/dl (32.0-36.5); MEAN CORPUSCULAR VOLUME 87.7 fl (80.0-96.0); RED BLOOD COUNT 2.93 10^6/uL (4.00-5.40); WHITE BLOOD COUNT 5.7 10^3/uL (4.0-10.0)
[2022-06-27 14:10] LABS: PLATELET COUNT, AUTOMATED 74 10^3/uL (150-450)
[2022-06-27] MEDS: DEXTROSE 50% 50ML SYRINGE IV PRN ×2 (18:29→21:29)
[2022-06-27 18:51] LABS: HEMATOCRIT 26.7 % (36.0-47.0); HEMOGLOBIN 8.9 g/dl (12.0-15.5); MEAN CORPUSCULAR HEMOGLOBIN 29.3 pg (27.0-33.0); MEAN CORPUSCULAR HGB CONC 33.3 g/dl (32.0-36.5); MEAN CORPUSCULAR VOLUME 87.8 fl (80.0-96.0); RED BLOOD COUNT 3.04 10^6/uL (4.00-5.40); WHITE BLOOD COUNT 7.3 10^3/uL (4.0-10.0)
[2022-06-27 18:54] LABS: PLATELET COUNT, AUTOMATED 97 10^3/uL (150-450)
[2022-06-27 19:17] LABS: ALBUMIN 2.7 G/DL (3.2-5.2); BILIRUBIN,TOTAL 1.8 MG/DL (0.3-1.2); CALCIUM LEVEL 8.3 MG/DL (8.3-10.6); CREATININE FOR GFR 1.55 MG/DL (0.55-1.30); GLOMERULAR FILTRATION RATE 35.1 (>39); POTASSIUM SERUM 4.7 MMOL/L (3.5-5.1); TOTAL PROTEIN 4.9 G/DL (5.7-8.2)
[2022-06-28 00:37] LABS: ALBUMIN 2.6 G/DL (3.2-5.2); BILIRUBIN,TOTAL 1.8 MG/DL (0.3-1.2); CALCIUM LEVEL 8.3 MG/DL (8.3-10.6); CREATININE FOR GFR 1.63 MG/DL (0.55-1.30); GLOMERULAR FILTRATION RATE 33.1 (>39); POTASSIUM SERUM 4.8 MMOL/L (3.5-5.1); TOTAL PROTEIN 4.9 G/DL (5.7-8.2)
[2022-06-28 00:39] VITALS: BP 153/67
[2022-06-28] MEDS: D5W 1,000 ML IV SCH ×2 (02:30→14:27)
[2022-06-28] MEDS: PIPERACILLIN/TAZOBACTAM SOD 3.375 GM in D5W MINI-BAG PLUS 50 ML IV SCH ×4 (04:25→21:46)
[2022-06-28 05:35] VITALS: BP 140/63
[2022-06-28] MEDS: INSULIN LISPRO (NovoLOG) PER UNIT SC SCH ×4 (06:00→23:58)
[2022-06-28 06:01] LABS: HEMATOCRIT 25.3 % (36.0-47.0); HEMOGLOBIN 8.4 g/dl (12.0-15.5); MEAN CORPUSCULAR HEMOGLOBIN 29.4 pg (27.0-33.0); MEAN CORPUSCULAR HGB CONC 33.2 g/dl (32.0-36.5); MEAN CORPUSCULAR VOLUME 88.5 fl (80.0-96.0); RED BLOOD COUNT 2.86 10^6/uL (4.00-5.40); WHITE BLOOD COUNT 5.5 10^3/uL (4.0-10.0)
[2022-06-28 06:03] LABS: PLATELET COUNT, AUTOMATED 72 10^3/uL (150-450)
[2022-06-28] MEDS: OCTREOTIDE ACETATE 100MCG/ML VIAL **IV ADMINISTRATION ONLY IV SCH (06:09)
[2022-06-28] MEDS: ONDANSETRON 4MG 2ML VIAL IV PRN (06:14)
[2022-06-28 06:24] LABS: ALBUMIN 2.5 G/DL (3.2-5.2); BILIRUBIN,TOTAL 1.9 MG/DL (0.3-1.2); CREATININE FOR GFR 1.72 MG/DL (0.55-1.30); GLOMERULAR FILTRATION RATE 31.1 (>39); POTASSIUM SERUM 4.5 MMOL/L (3.5-5.1); TOTAL PROTEIN 4.6 G/DL (5.7-8.2)
[2022-06-28 08:00] VITALS: BP 127/62
[2022-06-28] MEDS: PANTOPRAZOLE 40MG VIAL IV SCH (09:33)
[2022-06-28 13:32] LABS: HEMATOCRIT 29.4 % (36.0-47.0); HEMOGLOBIN 9.6 g/dl (12.0-15.5)
[2022-06-28 15:50] VITALS: BP 136/63
[2022-06-28 21:03] VITALS: BP 146/65
[2022-06-28 22:16] LABS: HEMATOCRIT 27.6 % (36.0-47.0); HEMOGLOBIN 8.9 g/dl (12.0-15.5); MEAN CORPUSCULAR HEMOGLOBIN 29.1 pg (27.0-33.0); MEAN CORPUSCULAR HGB CONC 32.2 g/dl (32.0-36.5); MEAN CORPUSCULAR VOLUME 90.2 fl (80.0-96.0); RED BLOOD COUNT 3.06 10^6/uL (4.00-5.40); WHITE BLOOD COUNT 5.1 10^3/uL (4.0-10.0)
[2022-06-28 22:17] LABS: PLATELET COUNT, AUTOMATED 75 10^3/uL (150-450)
[2022-06-28] MEDS ORDERED: diphenhydrAMINE 50MG/ML VIAL IV STA (22:55)
[2022-06-29 00:31] VITALS: BP 146/65
[2022-06-29] MEDS: D5W 1,000 ML IV SCH (02:25)
[2022-06-29 04:00] VITALS: BP 143/64
[2022-06-29] MEDS: PIPERACILLIN/TAZOBACTAM SOD 3.375 GM in D5W MINI-BAG PLUS 50 ML IV SCH ×2 (04:37→10:11)
[2022-06-29 05:54] LABS: HEMOGLOBIN 8.8 g/dl (12.0-15.5); MEAN CORPUSCULAR HEMOGLOBIN 29.1 pg (27.0-33.0); MEAN CORPUSCULAR HGB CONC 32.6 g/dl (32.0-36.5); MEAN CORPUSCULAR VOLUME 89.4 fl (80.0-96.0); RED BLOOD COUNT 3.02 10^6/uL (4.00-5.40); WHITE BLOOD COUNT 5.8 10^3/uL (4.0-10.0)
[2022-06-29] MEDS: INSULIN LISPRO (NovoLOG) PER UNIT SC SCH (05:54)
[2022-06-29 05:57] LABS: PLATELET COUNT, AUTOMATED 82 10^3/uL (150-450)
[2022-06-29 06:19] LABS: CALCIUM LEVEL 8.2 MG/DL (8.3-10.6); CREATININE FOR GFR 1.9 MG/DL (0.55-1.30); GLOMERULAR FILTRATION RATE 27.7 (>39); POTASSIUM SERUM 4.5 MMOL/L (3.5-5.1)
[2022-06-29 07:29] VITALS: BP 137/63
[2022-06-29] MEDS: PANTOPRAZOLE 40MG VIAL IV SCH (08:46)
[2022-06-29] MEDS ORDERED: LACTULOSE 20GM/30ML SYRUP UDC PO SCH (09:00)
[2022-06-29] MEDS ORDERED: TRIAMCINOLONE ACET 0.1% CREAM 80GM TOP SCH (09:00)
[2022-06-29] MEDS ORDERED: DOCUSATE SODIUM 100MG CAPSULE PO PRN (09:15)
== END 2022-06-29 11:24 | disposition home or self-care (01) | DRG 378 ==
LOC: M ED 23:08 → M ED INP 06-27 05:07 → ENRESERV 06-27 06:30 → M PCU 06-27 07:49
PROVIDERS: ADMIT Internal Medicine; ATTEND Internal Medicine
PROC: 30233R1 Transfusion of Nonautologous Platelets into Peripheral Vein, Percutaneous Approach (ICD-10-PCS; principal; 2022-06-27)
DX: K57.93 Diverticulitis of intestine, part unspecified, without perforation or abscess with bleeding (principal); N82.3 Fistula of vagina to large intestine; Z68.41 Body mass index [BMI] 40.0-44.9, adult; I13.0 Hypertensive heart and chronic kidney disease with heart failure and stage 1 through stage 4 chronic kidney disease, or unspecified chronic kidney disease; Z66 Do not resuscitate; K31.89 Other diseases of stomach and duodenum; K75.81 Nonalcoholic steatohepatitis (NASH); I50.810 Right heart failure, unspecified; D69.6 Thrombocytopenia, unspecified; E11.22 Type 2 diabetes mellitus with diabetic chronic kidney disease; N18.30 Chronic kidney disease, stage 3 unspecified; K21.9 Gastro-esophageal reflux disease without esophagitis; K44.9 Diaphragmatic hernia without obstruction or gangrene; E66.01 Morbid (severe) obesity due to excess calories; I35.0 Nonrheumatic aortic (valve) stenosis; I27.20 Pulmonary hypertension, unspecified; D50.9 Iron deficiency anemia, unspecified; F41.8 Other specified anxiety disorders; M19.90 Unspecified osteoarthritis, unspecified site; Z20.822 Contact with and (suspected) exposure to COVID-19; Z79.4 Long term (current) use of insulin; Z79.899 Other long term (current) drug therapy; Z88.1 Allergy status to other antibiotic agents; Z88.2 Allergy status to sulfonamides; Z88.8 Allergy status to other drugs, medicaments and biological substances; Z91.018 Allergy to other foods

== ENCOUNTER → 2022-07-05 | Outpatient (REF) | payer MEDICARE, OTHER ==
[~2022-07-05] MED LIST changes: +ASCO500T PO; +VITA-148 PO
== END ==
LOC: M SFHCCLAY 11:23
PROVIDERS: ATTEND Family Medicine
DX: R30.0 Dysuria (principal)

== ENCOUNTER → 2022-07-05 | Outpatient (REF) | payer MEDICARE, OTHER ==
[2022-07-05 17:31] LABS: BASO % 0.6 % (0.0-1.0); EOS # 0.4 10^3/uL (0.0-0.5); EOS % 6.3 % (0.0-3.0); HEMATOCRIT 28.7 % (36.0-47.0); HEMOGLOBIN 9.4 g/dl (12.0-15.5); LYMPH # 0.5 10^3/uL (1.5-5.0); MEAN CORPUSCULAR HEMOGLOBIN 28.9 pg (27.0-33.0); MEAN CORPUSCULAR HGB CONC 32.8 g/dl (32.0-36.5); MEAN CORPUSCULAR VOLUME 88.3 fl (80.0-96.0); MONO # 0.4 10^3/uL (0.0-0.8); MONO % 6.3 % (2.0-8.0); NEUTROPHILS # 5.2 10^3/uL (1.5-8.5); NEUTROPHILS % 79.3 % (36.0-66.0); RED BLOOD COUNT 3.25 10^6/uL (4.00-5.40); WHITE BLOOD COUNT 6.6 10^3/uL (4.0-10.0)
[2022-07-05 17:45] LABS: PLATELET COUNT, AUTOMATED 88 10^3/uL (150-450)
[2022-07-05 17:54] LABS: INR 1.32; PARTIAL THROMBOPLASTIN TIME 30.5 SECONDS (24.8-34.2); PROTHROMBIN TIME 16.6 SECONDS (12.5-14.5)
[2022-07-05 17:58] LABS: CALCIUM LEVEL 9.3 MG/DL (8.3-10.6); CREATININE FOR GFR 1.62 MG/DL (0.55-1.30); GLOMERULAR FILTRATION RATE 33.3 (>39); POTASSIUM SERUM 4.4 MMOL/L (3.5-5.1); TOTAL PROTEIN 5.6 G/DL (5.7-8.2)
== END ==
LOC: M LABDRAWC 16:51
PROVIDERS: ATTEND Internal Medicine Gastroenterology
DX: D50.9 Iron deficiency anemia, unspecified (principal); K74.60 Unspecified cirrhosis of liver; N18.32 Chronic kidney disease, stage 3b; N32.1 Vesicointestinal fistula; E11.9 Type 2 diabetes mellitus without complications; K21.9 Gastro-esophageal reflux disease without esophagitis; D69.6 Thrombocytopenia, unspecified; R30.0 Dysuria

== ENCOUNTER → 2022-07-16 | Outpatient (CLI) | payer MEDICARE, OTHER | LOC: M WHC 07:39 | PROVIDERS: ATTEND Internal Medicine Gastroenterology | DX: K74.60 Unspecified cirrhosis of liver (principal); Z53.9 Procedure and treatment not carried out, unspecified reason ==

== ENCOUNTER → 2022-07-16 | Outpatient (CLI) | payer MEDICARE, OTHER | LOC: M WHC 07:41 | PROVIDERS: ATTEND Family Medicine | DX: K86.2 Cyst of pancreas (principal); K74.60 Unspecified cirrhosis of liver; Z95.828 Presence of other vascular implants and grafts ==

== ENCOUNTER → 2022-07-30 | Outpatient (REF) | payer MEDICARE, OTHER ==
[2022-07-30 18:05] LABS: PERCENT SATURATION 15.9 % (13.2-45.0)
[2022-07-30 18:08] LABS: FERRITIN 22.6 NG/ML (7.3-270.7)
== END ==
LOC: M LAB REF 17:01
PROVIDERS: ATTEND Internal Medicine Nephrology
DX: D50.9 Iron deficiency anemia, unspecified (principal)

== ENCOUNTER 2022-08-14 05:26 | Inpatient (IN) | payer MEDICARE, OTHER ==
[2022-08-14 06:49] LABS: BASO % 0.5 % (0.0-1.0); EOS # 0.3 10^3/uL (0.0-0.5); EOS % 4.5 % (0.0-3.0); HEMATOCRIT 24.9 % (36.0-47.0); HEMOGLOBIN 8.2 g/dl (12.0-15.5); LYMPH # 0.3 10^3/uL (1.5-5.0); LYMPH % 4.1 % (24.0-44.0); MEAN CORPUSCULAR HEMOGLOBIN 28.4 pg (27.0-33.0); MEAN CORPUSCULAR HGB CONC 32.9 g/dl (32.0-36.5); MEAN CORPUSCULAR VOLUME 86.2 fl (80.0-96.0); MONO # 0.5 10^3/uL (0.0-0.8); MONO % 7.2 % (2.0-8.0); NEUTROPHILS # 6.1 10^3/uL (1.5-8.5); NEUTROPHILS % 83.2 % (36.0-66.0); RED BLOOD COUNT 2.89 10^6/uL (4.00-5.40); WHITE BLOOD COUNT 7.3 10^3/uL (4.0-10.0)
[2022-08-14] MEDS ORDERED: NS 500 ML IV ONE (06:50)
[2022-08-14 06:55] LABS: PLATELET COUNT, AUTOMATED 66 10^3/uL (150-450)
[2022-08-14 07:00] LABS: INR 1.18; PROTHROMBIN TIME 15.3 SECONDS (12.5-14.5)
[2022-08-14 07:01] LABS: PARTIAL THROMBOPLASTIN TIME 29.7 SECONDS (24.8-34.2)
[2022-08-14 07:15] LABS: ALBUMIN 3.1 G/DL (3.2-5.2); BILIRUBIN,DIRECT 0.6 MG/DL (<0.4); BILIRUBIN,TOTAL 1.6 MG/DL (0.3-1.2); CREATININE FOR GFR 1.7 MG/DL (0.55-1.30); GLOMERULAR FILTRATION RATE 31.5 (>39); POTASSIUM SERUM 4.1 MMOL/L (3.5-5.1); TOTAL PROTEIN 5.3 G/DL (5.7-8.2)
[2022-08-14] MEDS ORDERED: ISOVUE-370 76% 100ML VIAL As Ordered ONE (07:17)
[2022-08-14] MEDS ORDERED: PANTOPRAZOLE 40MG VIAL IV ONE ×2 (10:00→12:05)
[2022-08-14] MEDS ORDERED: GLUCAGON INJ 1MG VIAL SC PRN (12:05)
[2022-08-14] MEDS ORDERED: DEXTROSE 50% 50ML SYRINGE IV PRN (12:05)
[2022-08-14] MEDS ORDERED: ACETAMINOPHEN TAB 650MG DOSE (2X325MG) PO PRN (12:05)
[2022-08-14] MEDS ORDERED: MOM 30ML SUSPENSION UDC PO PRN (12:05)
[2022-08-14] MEDS ORDERED: GLUCOSE 4GM CHEW TABLET PO PRN (12:05)
[2022-08-14] MEDS: LR 1,000 ML IV SCH (12:57)
[2022-08-14] MEDS ORDERED: LR 1,000 ML IV SCH (13:00)
[2022-08-14] MEDS ORDERED: cefTRIAXone SOD 1 GM in D5W MINI-BAG PLUS 50 ML IV SCH (13:00)
[2022-08-14] MEDS ORDERED: HOME MED LIST COMPLETE! XX SCH (13:10)
[2022-08-14] MEDS ORDERED: OCTREOTIDE ACETATE 1,200 MCG in NS 238.8 ML IV SCH (14:00)
[2022-08-14 18:07] VITALS: BP 140/63
[2022-08-14] MEDS: INSULIN LISPRO (NovoLOG) PER UNIT SC SCH ×2 (19:04→21:00)
[2022-08-14 20:15] VITALS: BP 122/60
[2022-08-14 21:00] LABS: HEMATOCRIT 25.1 % (36.0-47.0)
[2022-08-14] MEDS: SUCRALFATE 1 GM TAB PO SCH (21:52)
[2022-08-14] MEDS: DOCUSATE SODIUM 100MG CAPSULE PO SCH (21:52)
[2022-08-14 23:42] VITALS: BP 138/62
[2022-08-15] MEDS: LR 1,000 ML IV SCH (01:00)
[2022-08-15 03:37] VITALS: BP 103/51
[2022-08-15 06:23] LABS: HEMATOCRIT 24.8 % (36.0-47.0); HEMOGLOBIN 7.8 g/dl (12.0-15.5); MEAN CORPUSCULAR HEMOGLOBIN 27.7 pg (27.0-33.0); MEAN CORPUSCULAR HGB CONC 31.5 g/dl (32.0-36.5); MEAN CORPUSCULAR VOLUME 87.9 fl (80.0-96.0); RED BLOOD COUNT 2.82 10^6/uL (4.00-5.40); WHITE BLOOD COUNT 6.2 10^3/uL (4.0-10.0)
[2022-08-15 06:29] LABS: INR 1.3; PROTHROMBIN TIME 16.4 SECONDS (12.5-14.5)
[2022-08-15 06:30] LABS: PLATELET COUNT, AUTOMATED 75 10^3/uL (150-450)
[2022-08-15 06:59] LABS: ALBUMIN 2.5 G/DL (3.2-5.2); ALKALINE PHOSPHATASE 113 U/L (46-116); ALT/SGPT 20 U/L (7.0-40); AST/SGOT 31 U/L (<34); BILIRUBIN,TOTAL 1.3 MG/DL (0.3-1.2); BLOOD UREA NITROGEN 36 MG/DL (9-23); CALCIUM LEVEL 7.9 MG/DL (8.3-10.6); CARBON DIOXIDE LEVEL 24 MMOL/L (20-31); CHLORIDE LEVEL 107 MMOL/L (98-107); CREATININE FOR GFR 1.76 MG/DL (0.55-1.30); GLOMERULAR FILTRATION RATE 30.3 (>39); GLUCOSE, FASTING 72 MG/DL (74-106); POTASSIUM SERUM 4.3 MMOL/L (3.5-5.1); SODIUM LEVEL 138 MMOL/L (136-145); TOTAL PROTEIN 4.5 G/DL (5.7-8.2)
[2022-08-15] MEDS: INSULIN LISPRO (NovoLOG) PER UNIT SC SCH ×4 (07:30→21:00)
[2022-08-15] MEDS: SUCRALFATE 1 GM TAB PO SCH ×4 (07:46→21:03)
[2022-08-15] MEDS: DOCUSATE SODIUM 100MG CAPSULE PO SCH ×2 (07:46→21:03)
[2022-08-15 07:54] VITALS: BP 129/60
[2022-08-15 10:50] LABS: IRON (FE) 20 UG/DL (50-170); TOTAL IRON BINDING CAPACITY 284 UG/DL (250-425)
[2022-08-15 10:55] LABS: FERRITIN 13.1 NG/ML (7.3-270.7); FOLATE > 24.00 NG/ML (>5.4); VITAMIN B12 LEVEL 1725 PG/ML (211-911)
[2022-08-15 12:00] VITALS: BP 137/63
[2022-08-15] MEDS: PANTOPRAZOLE 40MG VIAL IV SCH ×2 (12:07)
[2022-08-15] MEDS ORDERED: FERRIC CARBOXYMALTOSE INJ 750 MG, VIAL MATE ADAPTER 1 EACH in NS 250 ML IV ONE (14:00)
[2022-08-15 14:24] LABS: HEMATOCRIT 23.9 % (36.0-47.0); HEMOGLOBIN 7.7 g/dl (12.0-15.5)
[2022-08-15] MEDS: rifAXIMin 550 MG TAB (XIFAXAN) PO SCH ×2 (14:49→21:03)
[2022-08-15] MEDS: LACTULOSE 20GM/30ML SYRUP UDC PO SCH (14:49)
[2022-08-15] MEDS: ASCORBIC ACID 500 MG TAB PO SCH (14:49)
[2022-08-15] MEDS: VITAMIN D 1,000 INTERNATIONAL UNITS TABLET PO SCH (14:50)
[2022-08-15 16:00] VITALS: BP 135/58
[2022-08-15 20:00] VITALS: BP 142/66
[2022-08-15] MEDS ORDERED: MAGNESIUM OXIDE 400MG TAB (MAG-OX) PO SCH (21:00)
[2022-08-15] MEDS ORDERED: CitaloPRAM (CeleXA) 10 MG TABLET PO SCH (21:00)
[2022-08-15 22:14] LABS: HEMATOCRIT 27.5 % (36.0-47.0); HEMOGLOBIN 8.6 g/dl (12.0-15.5)
[2022-08-16] VITALS: BP 136/65
[2022-08-16] MEDS: PANTOPRAZOLE 40MG VIAL IV SCH (00:35)
[2022-08-16 04:00] VITALS: BP 130/58
[2022-08-16 05:52] LABS: HEMATOCRIT 24.5 % (36.0-47.0); HEMOGLOBIN 7.7 g/dl (12.0-15.5); MEAN CORPUSCULAR HEMOGLOBIN 28.2 pg (27.0-33.0); MEAN CORPUSCULAR HGB CONC 31.4 g/dl (32.0-36.5); MEAN CORPUSCULAR VOLUME 89.7 fl (80.0-96.0); RED BLOOD COUNT 2.73 10^6/uL (4.00-5.40); WHITE BLOOD COUNT 6.3 10^3/uL (4.0-10.0)
[2022-08-16 05:53] LABS: PLATELET COUNT, AUTOMATED 68 10^3/uL (150-450)
[2022-08-16 06:24] LABS: ALBUMIN 2.4 G/DL (3.2-5.2); BILIRUBIN,TOTAL 1.1 MG/DL (0.3-1.2); CALCIUM LEVEL 7.5 MG/DL (8.3-10.6); CREATININE FOR GFR 1.71 MG/DL (0.55-1.30); GLOMERULAR FILTRATION RATE 31.3 (>39); POTASSIUM SERUM 4.5 MMOL/L (3.5-5.1); TOTAL PROTEIN 4.4 G/DL (5.7-8.2)
[2022-08-16] MEDS: SUCRALFATE 1 GM TAB PO SCH (07:33)
[2022-08-16 07:52] VITALS: BP 134/63
[2022-08-16] MEDS: LACTULOSE 20GM/30ML SYRUP UDC PO SCH (08:30)
[2022-08-16] MEDS: ASCORBIC ACID 500 MG TAB PO SCH (08:31)
[2022-08-16] MEDS: VITAMIN D 1,000 INTERNATIONAL UNITS TABLET PO SCH (08:31)
[2022-08-16] MEDS: rifAXIMin 550 MG TAB (XIFAXAN) PO SCH (08:31)
[2022-08-16] MEDS ORDERED: SUCR1TA PO ×2 (10:15→11:38)
[2022-08-16] MEDS ORDERED: PROT1TAB2 PO (10:15)
== END 2022-08-16 11:55 | disposition home or self-care (01) | DRG 379 ==
LOC: M ED 05:26 → M ED INP 12:05 → M PCU 18:07
PROVIDERS: ADMIT Student in an Organized Health Care Education/Training Program; ATTEND Student in an Organized Health Care Education/Training Program
DX: K92.2 Gastrointestinal hemorrhage, unspecified (principal); E11.22 Type 2 diabetes mellitus with diabetic chronic kidney disease; K92.1 Melena; N18.30 Chronic kidney disease, stage 3 unspecified; D69.6 Thrombocytopenia, unspecified; K74.60 Unspecified cirrhosis of liver; K75.81 Nonalcoholic steatohepatitis (NASH); D50.9 Iron deficiency anemia, unspecified; F41.9 Anxiety disorder, unspecified; K64.8 Other hemorrhoids; K21.9 Gastro-esophageal reflux disease without esophagitis; Z88.2 Allergy status to sulfonamides; Z91.018 Allergy to other foods; Z88.8 Allergy status to other drugs, medicaments and biological substances; Z79.899 Other long term (current) drug therapy; Z79.4 Long term (current) use of insulin; Z96.641 Presence of right artificial hip joint; Z66 Do not resuscitate

== ENCOUNTER → 2022-08-21 | Outpatient (REF) | payer MEDICARE, OTHER ==
[~2022-08-21] MED LIST changes: +PROT1TAB2 PO; +SUCR1TA PO
[2022-08-21 17:34] LABS: BASO % 0.8 % (0.0-1.0); EOS # 0.4 10^3/uL (0.0-0.5); EOS % 8.1 % (0.0-3.0); HEMATOCRIT 24.6 % (36.0-47.0); HEMOGLOBIN 7.9 g/dl (12.0-15.5); LYMPH # 0.3 10^3/uL (1.5-5.0); LYMPH % 6.4 % (24.0-44.0); MEAN CORPUSCULAR HEMOGLOBIN 28.4 pg (27.0-33.0); MEAN CORPUSCULAR HGB CONC 32.1 g/dl (32.0-36.5); MEAN CORPUSCULAR VOLUME 88.5 fl (80.0-96.0); MONO # 0.5 10^3/uL (0.0-0.8); MONO % 8.5 % (2.0-8.0); NEUTROPHILS % 75.6 % (36.0-66.0); RED BLOOD COUNT 2.78 10^6/uL (4.00-5.40); WHITE BLOOD COUNT 5.3 10^3/uL (4.0-10.0)
[2022-08-21 17:35] LABS: PLATELET COUNT, AUTOMATED 80 10^3/uL (150-450)
[2022-08-21 18:00] LABS: ALBUMIN 2.6 G/DL (3.2-5.2); BILIRUBIN,TOTAL 1.5 MG/DL (0.3-1.2); CALCIUM LEVEL 8.3 MG/DL (8.3-10.6); CREATININE FOR GFR 1.64 MG/DL (0.55-1.30); GLOMERULAR FILTRATION RATE 32.9 (>39); POTASSIUM SERUM 5.3 MMOL/L (3.5-5.1); TOTAL PROTEIN 4.7 G/DL (5.7-8.2)
== END ==
LOC: M SFHCCLAY 14:12
PROVIDERS: ATTEND Nurse Practitioner Family
DX: K74.60 Unspecified cirrhosis of liver (principal)

== ENCOUNTER → 2022-08-21 | Outpatient (CLI) | payer MEDICARE, OTHER | LOC: M CLY 14:32 | PROVIDERS: ATTEND Nurse Practitioner Family | DX: R91.8 Other nonspecific abnormal finding of lung field (principal) ==

== ENCOUNTER 2022-08-23 14:05 | Outpatient (CLI) | payer MEDICARE, OTHER ==
[~2022-08-23] VITALS: Ht 165.1 cm; Wt 114.8 kg
[2022-08-23 14:05] VITALS: BP 173/72
[~2022-08-23 14:05] MED LIST changes: +ALBUTEROL SULFATE 2.5MG/0.5ML INH NEB SOLN INH PRN; +EPINEPHrine INJ 1 MG/ML 1ML AMP IM PRN; +FERRIC CARBOXYMALTOSE INJ 750 MG in NS 250 ML (>50kg) IV ONE; +NS 1,000 ML IV SCH; +diphenhydrAMINE 50MG/ML VIAL IV PRN; +methylPREDNISolone 125MG 2ML VIAL IV PRN
[2022-08-23 15:30] VITALS: BP 168/74
== END 2022-08-23 15:30 | disposition home or self-care (01) ==
LOC: M INFU 14:05
PROVIDERS: ATTEND Internal Medicine Nephrology
DX: E61.1 Iron deficiency (principal); Z88.2 Allergy status to sulfonamides; Z91.018 Allergy to other foods
CPT/HCPCS: 96365; J1439

== ENCOUNTER → 2022-09-05 | Outpatient (CLI) | payer MEDICARE, OTHER ==
[~2022-09-05] MED LIST changes: -ALBUTEROL SULFATE 2.5MG/0.5ML INH NEB SOLN INH PRN; -EPINEPHrine INJ 1 MG/ML 1ML AMP IM PRN; -FERRIC CARBOXYMALTOSE INJ 750 MG in NS 250 ML (>50kg) IV ONE; +GASTROGRAFIN SOLUTION 30ML As Ordered ONE; -NS 1,000 ML IV SCH; -diphenhydrAMINE 50MG/ML VIAL IV PRN; -methylPREDNISolone 125MG 2ML VIAL IV PRN
== END ==
LOC: M RAD 14:57
PROVIDERS: ATTEND Surgery
DX: N82.3 Fistula of vagina to large intestine (principal); K86.2 Cyst of pancreas; K74.60 Unspecified cirrhosis of liver; R16.1 Splenomegaly, not elsewhere classified; R18.8 Other ascites
CPT/HCPCS: 74176; Q9963

== ENCOUNTER → 2022-09-07 | Outpatient (REF) | payer MEDICARE, OTHER ==
[~2022-09-07] MED LIST changes: -GASTROGRAFIN SOLUTION 30ML As Ordered ONE
== END ==
LOC: EEVIPCON 10:52 → M SFHCCLAY 10:52
PROVIDERS: ATTEND Family Medicine
DX: R30.0 Dysuria (principal)

== ENCOUNTER 2022-09-15 15:59 | Emergency (ER) | payer MEDICARE, OTHER ==
[~2022-09-15] VITALS: Ht 165.1 cm; Wt 113.6 kg
[2022-09-15 19:34] VITALS: BP 145/65; TEMP 97.4; O2SAT 100
== END 2022-09-15 20:31 | disposition home or self-care (01) ==
LOC: M ED 15:59
DX: S70.01XA Contusion of right hip, initial encounter (principal); W10.8XXA Fall (on) (from) other stairs and steps, initial encounter; Y92.009 Unspecified place in unspecified non-institutional (private) residence as the place of occurrence of the external cause; K75.81 Nonalcoholic steatohepatitis (NASH); K57.92 Diverticulitis of intestine, part unspecified, without perforation or abscess without bleeding; Z86.19 Personal history of other infectious and parasitic diseases; I65.23 Occlusion and stenosis of bilateral carotid arteries; M85.80 Other specified disorders of bone density and structure, unspecified site; E11.9 Type 2 diabetes mellitus without complications; Z79.4 Long term (current) use of insulin; Z79.899 Other long term (current) drug therapy; Z88.2 Allergy status to sulfonamides; Z88.1 Allergy status to other antibiotic agents; Z88.8 Allergy status to other drugs, medicaments and biological substances; Z91.018 Allergy to other foods

== ENCOUNTER → 2022-09-28 | Outpatient (REF) | payer MEDICARE, OTHER | LOC: M SFHCCLAY 13:36 | PROVIDERS: ATTEND Family Medicine | DX: R30.0 Dysuria (principal) ==

== ENCOUNTER → 2022-11-06 | Outpatient (REF) | payer MEDICARE, OTHER ==
[2022-11-06 18:34] LABS: BILIRUBIN,TOTAL 1.7 MG/DL (0.3-1.2); CALCIUM LEVEL 8.8 MG/DL (8.3-10.6); CREATININE FOR GFR 1.8 MG/DL (0.55-1.30); GLOMERULAR FILTRATION RATE 29.5 (>39); POTASSIUM SERUM 4.4 MMOL/L (3.5-5.1); TOTAL PROTEIN 5.2 G/DL (5.7-8.2)
[2022-11-06 18:36] LABS: THYROID STIMULATING HORMONE 1.351 uIU/ML (0.55-4.78)
[2022-11-06 18:40] LABS: HEMATOCRIT 29.5 % (36.0-47.0); HEMOGLOBIN 9.7 g/dl (12.0-15.5); MEAN CORPUSCULAR HEMOGLOBIN 27.7 pg (27.0-33.0); MEAN CORPUSCULAR HGB CONC 32.9 g/dl (32.0-36.5); MEAN CORPUSCULAR VOLUME 84.3 fl (80.0-96.0); WHITE BLOOD COUNT 7.3 10^3/uL (4.0-10.0)
[2022-11-06 18:47] LABS: HEMOGLOBIN A1c 7.5 % (4.0-6.0)
[2022-11-06 19:12] LABS: PLATELET COUNT, AUTOMATED 87 10^3/uL (150-450)
== END ==
LOC: M SFHCCLAY 10:54
PROVIDERS: ATTEND Family Medicine
DX: R39.9 Unspecified symptoms and signs involving the genitourinary system (principal); E07.9 Disorder of thyroid, unspecified; E11.9 Type 2 diabetes mellitus without complications; D50.9 Iron deficiency anemia, unspecified

== ENCOUNTER → 2022-11-12 | Outpatient (CLI) | payer MEDICARE, OTHER | LOC: M CLY 14:19 | PROVIDERS: ATTEND Family Medicine | DX: S81.812D Laceration without foreign body, left lower leg, subsequent encounter (principal) ==

== ENCOUNTER → 2022-12-04 | Outpatient (REF) | payer MEDICARE, OTHER ==
[~2022-12-04] MED LIST changes: +NOVOINJ3 SQ; +TRES100I SC; +[UNRECOGNIZED DRUG - CODE] TOP
[2022-12-04 17:49] LABS: BASO % 0.4 % (0.0-1.0); EOS # 0.2 10^3/uL (0.0-0.5); EOS % 2.5 % (0.0-3.0); HEMATOCRIT 25.5 % (36.0-47.0); HEMOGLOBIN 8.8 g/dl (12.0-15.5); LYMPH # 0.4 10^3/uL (1.5-5.0); LYMPH % 4.8 % (24.0-44.0); MEAN CORPUSCULAR HEMOGLOBIN 28.6 pg (27.0-33.0); MEAN CORPUSCULAR HGB CONC 34.5 g/dl (32.0-36.5); MEAN CORPUSCULAR VOLUME 82.8 fl (80.0-96.0); MONO # 0.7 10^3/uL (0.0-0.8); MONO % 8.3 % (2.0-8.0); NEUTROPHILS # 6.7 10^3/uL (1.5-8.5); NEUTROPHILS % 83.4 % (36.0-66.0); RED BLOOD COUNT 3.08 10^6/uL (4.00-5.40); WHITE BLOOD COUNT 8.1 10^3/uL (4.0-10.0)
[2022-12-04 17:51] LABS: ALBUMIN 2.8 G/DL (3.2-5.2); BILIRUBIN,TOTAL 2.7 MG/DL (0.3-1.2); CALCIUM LEVEL 8.6 MG/DL (8.3-10.6); CREATININE FOR GFR 3.26 MG/DL (0.55-1.30); GLOMERULAR FILTRATION RATE 14.9 (>39); POTASSIUM SERUM 4.6 MMOL/L (3.5-5.1); TOTAL PROTEIN 5.2 G/DL (5.7-8.2)
[2022-12-04 18:03] LABS: PLATELET COUNT, AUTOMATED 72 10^3/uL (150-450)
== END ==
LOC: M LABDRAWC 16:49
PROVIDERS: ATTEND Internal Medicine Gastroenterology
DX: K74.60 Unspecified cirrhosis of liver (principal); K76.6 Portal hypertension; K72.90 Hepatic failure, unspecified without coma

== ENCOUNTER 2022-12-05 12:25 | Inpatient (IN) | payer MEDICARE, OTHER ==
[~2022-12-05] VITALS: Ht 167.6 cm; Wt 106.1 kg
[~2022-12-05 12:25] MED LIST changes: -NOVOINJ3 SQ; -TRES100I SC; -[UNRECOGNIZED DRUG - CODE] TOP
[2022-12-05] MEDS ORDERED: PANTOPRAZOLE 40MG VIAL IV ONE (13:25)
[2022-12-05 13:42] LABS: BASO % 0.6 % (0.0-1.0); EOS # 0.3 10^3/uL (0.0-0.5); EOS % 3.6 % (0.0-3.0); HEMATOCRIT 27.5 % (36.0-47.0); HEMOGLOBIN 9.2 g/dl (12.0-15.5); LYMPH # 0.5 10^3/uL (1.5-5.0); LYMPH % 7.2 % (24.0-44.0); MEAN CORPUSCULAR HEMOGLOBIN 27.8 pg (27.0-33.0); MEAN CORPUSCULAR HGB CONC 33.5 g/dl (32.0-36.5); MEAN CORPUSCULAR VOLUME 83.1 fl (80.0-96.0); MONO # 0.5 10^3/uL (0.0-0.8); MONO % 6.9 % (2.0-8.0); NEUTROPHILS # 5.9 10^3/uL (1.5-8.5); NEUTROPHILS % 80.9 % (36.0-66.0); RED BLOOD COUNT 3.31 10^6/uL (4.00-5.40); WHITE BLOOD COUNT 7.2 10^3/uL (4.0-10.0)
[2022-12-05 13:43] LABS: PLATELET COUNT, AUTOMATED 77 10^3/uL (150-450)
[2022-12-05] MEDS ORDERED: TRES100I SC (13:49)
[2022-12-05] MEDS ORDERED: [UNRECOGNIZED DRUG - CODE] TOP (13:49)
[2022-12-05] MEDS ORDERED: NOVOINJ3 SQ (13:49)
[2022-12-05 13:52] LABS: INR 1.15; PROTHROMBIN TIME 14.4 SECONDS (12.5-14.5)
[2022-12-05 14:03] LABS: ALBUMIN 3.2 G/DL (3.2-5.2); BILIRUBIN,DIRECT 1.1 MG/DL (<0.4); BILIRUBIN,TOTAL 3.3 MG/DL (0.3-1.2); CALCIUM LEVEL 9.2 MG/DL (8.3-10.6); CREATININE FOR GFR 3.34 MG/DL (0.55-1.30); GLOMERULAR FILTRATION RATE 14.5 (>39); POTASSIUM SERUM 4.4 MMOL/L (3.5-5.1); TOTAL PROTEIN 5.9 G/DL (5.7-8.2)
[2022-12-05 17:18] LABS: HEMATOCRIT 22.4 % (36.0-47.0); HEMOGLOBIN 7.5 g/dl (12.0-15.5); MEAN CORPUSCULAR HGB CONC 33.5 g/dl (32.0-36.5); MEAN CORPUSCULAR VOLUME 83.6 fl (80.0-96.0); RED BLOOD COUNT 2.68 10^6/uL (4.00-5.40); WHITE BLOOD COUNT 5.1 10^3/uL (4.0-10.0)
[2022-12-05 17:19] LABS: PLATELET COUNT, AUTOMATED 54 10^3/uL (150-450)
[2022-12-05] MEDS ORDERED: GLUCAGON INJ 1MG VIAL SC PRN (18:00)
[2022-12-05] MEDS ORDERED: GLUCOSE 4GM CHEW TABLET PO PRN (18:00)
[2022-12-05] MEDS ORDERED: DEXTROSE 50% 50ML SYRINGE IV PRN (18:00)
[2022-12-05] MEDS ORDERED: MED REC IN PROGRESS XX SCH (18:20)
[2022-12-05] MEDS: INSULIN LISPRO (NovoLOG) PER UNIT SC SCH (19:38)
[2022-12-05] MEDS ORDERED: OCTREOTIDE ACETATE 100MCG/ML VIAL **IV ADMINISTRATION ONLY IV ONE (20:00)
[2022-12-05] MEDS ORDERED: LACT20EL PO (20:39)
[2022-12-05] MEDS ORDERED: HOME MED LIST COMPLETE! XX SCH (20:45)
[2022-12-05] MEDS: cefTRIAXone SOD 2 GM in D5W MINI-BAG PLUS 50 ML IV SCH (20:55)
[2022-12-05] MEDS ORDERED: FERROUS GLUCONATE 324 MG TAB PO SCH (21:00)
[2022-12-05 21:29] VITALS: BP 171/74; TEMP 98.1; O2SAT 100
[2022-12-05] MEDS: SUCRALFATE SUSP 1GM/10ML UD PO SCH (21:54)
[2022-12-05] MEDS: PANTOPRAZOLE 40MG VIAL IV SCH (21:55)
[2022-12-05] MEDS: rifAXIMin 550 MG TAB (XIFAXAN) PO SCH (21:55)
[2022-12-05] MEDS: OCTREOTIDE ACETATE 1,200 MCG in NS 238.8 ML IV SCH (22:20)
[2022-12-06 00:03] VITALS: BP 120/56; TEMP 97.3; O2SAT 100
[2022-12-06 01:22] LABS: HEMATOCRIT 22.3 % (36.0-47.0); HEMOGLOBIN 7.6 g/dl (12.0-15.5); MEAN CORPUSCULAR HEMOGLOBIN 28.5 pg (27.0-33.0); MEAN CORPUSCULAR HGB CONC 34.1 g/dl (32.0-36.5); MEAN CORPUSCULAR VOLUME 83.5 fl (80.0-96.0); RED BLOOD COUNT 2.67 10^6/uL (4.00-5.40); WHITE BLOOD COUNT 5.3 10^3/uL (4.0-10.0)
[2022-12-06 01:26] LABS: PLATELET COUNT, AUTOMATED 60 10^3/uL (150-450)
[2022-12-06 04:04] VITALS: BP 117/56; TEMP 97; O2SAT 96
[2022-12-06] MEDS: INSULIN LISPRO (NovoLOG) PER UNIT SC SCH ×4 (05:33→18:25)
[2022-12-06 05:40] LABS: CALCIUM LEVEL 8.4 MG/DL (8.3-10.6); CREATININE FOR GFR 3.27 MG/DL (0.55-1.30); GLOMERULAR FILTRATION RATE 14.8 (>39); POTASSIUM SERUM 4.3 MMOL/L (3.5-5.1)
[2022-12-06] MEDS: LEVEMIR (INSULIN DETEMIR) 1 UNITS/0.01ML SC SCH (08:19)
[2022-12-06] MEDS: LACTULOSE 20GM/30ML SYRUP UDC PO SCH ×2 (08:26→21:22)
[2022-12-06] MEDS: rifAXIMin 550 MG TAB (XIFAXAN) PO SCH ×2 (08:26→21:22)
[2022-12-06] MEDS: SUCRALFATE SUSP 1GM/10ML UD PO SCH ×4 (08:26→21:22)
[2022-12-06] MEDS: PANTOPRAZOLE 40MG VIAL IV SCH ×2 (08:26→21:21)
[2022-12-06 12:00] VITALS: BP 133/60; TEMP 98.3; O2SAT 99
[2022-12-06] MEDS ORDERED: FUROSEMIDE 40MG/4ML VIAL IV SCH (13:55)
[2022-12-06] MEDS: FUROSEMIDE 40MG/4ML VIAL IV SCH ×2 (15:26→21:22)
[2022-12-06 16:00] VITALS: BP 155/70; TEMP 97.8; O2SAT 100
[2022-12-06] MEDS: SPIRONOLACTONE 50 MG TAB PO SCH (18:24)
[2022-12-06] MEDS: OCTREOTIDE ACETATE 1,200 MCG in NS 238.8 ML IV SCH (19:44)
[2022-12-06] MEDS: cefTRIAXone SOD 2 GM in D5W MINI-BAG PLUS 50 ML IV SCH (19:45)
[2022-12-06 20:05] VITALS: BP 180/74; TEMP 98; O2SAT 100
[2022-12-06] MEDS ORDERED: SPIRONOLACTONE 50 MG TAB PO SCH (21:00)
[2022-12-06] MEDS: CitaloPRAM (CeleXA) 20 MG TAB PO SCH (21:22)
[2022-12-06 23:35] VITALS: BP 141/65; TEMP 97.6; O2SAT 100
[2022-12-07 04:23] VITALS: BP 142/69; TEMP 97.9; O2SAT 99
[2022-12-07] MEDS: FUROSEMIDE 40MG/4ML VIAL IV SCH (05:55)
[2022-12-07] MEDS: INSULIN LISPRO (NovoLOG) PER UNIT SC SCH ×4 (05:55→17:17)
[2022-12-07 08:09] VITALS: BP 144/62; TEMP 96.7; O2SAT 100
[2022-12-07] MEDS: PANTOPRAZOLE 40MG VIAL IV SCH ×2 (08:22→21:47)
[2022-12-07] MEDS: SUCRALFATE SUSP 1GM/10ML UD PO SCH ×4 (08:23→21:45)
[2022-12-07] MEDS: LACTULOSE 20GM/30ML SYRUP UDC PO SCH ×2 (08:23→21:46)
[2022-12-07] MEDS: SPIRONOLACTONE 50 MG TAB PO SCH ×2 (08:23→17:17)
[2022-12-07] MEDS: rifAXIMin 550 MG TAB (XIFAXAN) PO SCH ×2 (08:24→21:46)
[2022-12-07 08:39] LABS: HEMATOCRIT 26.6 % (36.0-47.0); HEMOGLOBIN 8.9 g/dl (12.0-15.5); MEAN CORPUSCULAR HEMOGLOBIN 28.1 pg (27.0-33.0); MEAN CORPUSCULAR HGB CONC 33.5 g/dl (32.0-36.5); MEAN CORPUSCULAR VOLUME 83.9 fl (80.0-96.0); RED BLOOD COUNT 3.17 10^6/uL (4.00-5.40); WHITE BLOOD COUNT 5.4 10^3/uL (4.0-10.0)
[2022-12-07 08:40] LABS: PLATELET COUNT, AUTOMATED 85 10^3/uL (150-450)
[2022-12-07] MEDS: LEVEMIR (INSULIN DETEMIR) 1 UNITS/0.01ML SC SCH (09:00)
[2022-12-07 09:06] LABS: ALBUMIN 2.7 G/DL (3.2-5.2); CALCIUM LEVEL 8.3 MG/DL (8.3-10.6); CREATININE FOR GFR 3.08 MG/DL (0.55-1.30); GLOMERULAR FILTRATION RATE 15.9 (>39); MAGNESIUM LEVEL 1.8 MG/DL (1.8-2.4); PHOSPHORUS LEVEL 4.3 MG/DL (2.4-5.1)
[2022-12-07 11:18] VITALS: BP 138/65; TEMP 96.7; O2SAT 99
[2022-12-07] MEDS: FUROSEMIDE 100MG/10ML VIAL IV SCH ×2 (14:29→21:47)
[2022-12-07 15:35] VITALS: BP 136/65; TEMP 97.7; O2SAT 100
[2022-12-07] MEDS ORDERED: GLUCAGON INJ 1MG VIAL SC PRN (16:20)
[2022-12-07] MEDS ORDERED: GLUCOSE 4GM CHEW TABLET PO PRN (16:20)
[2022-12-07] MEDS ORDERED: DEXTROSE 50% 50ML SYRINGE IV PRN (16:20)
[2022-12-07 20:00] VITALS: BP 139/60; TEMP 97.4; O2SAT 100
[2022-12-07] MEDS: cefTRIAXone SOD 2 GM in D5W MINI-BAG PLUS 50 ML IV SCH (20:04)
[2022-12-07] MEDS: OCTREOTIDE ACETATE 1,200 MCG in NS 238.8 ML IV SCH (20:04)
[2022-12-07] MEDS ORDERED: INSULIN LISPRO (NovoLOG) PER UNIT SC SCH (21:00)
[2022-12-07 21:43] VITALS: BP 140/70; TEMP 98; O2SAT 99
[2022-12-07] MEDS: CitaloPRAM (CeleXA) 20 MG TAB PO SCH (21:46)
[2022-12-08 00:13] VITALS: BP 124/60; TEMP 97.8; O2SAT 98
[2022-12-08 04:00] VITALS: BP 127/60; TEMP 97.4; O2SAT 100
[2022-12-08] MEDS: FUROSEMIDE 100MG/10ML VIAL IV SCH ×2 (05:43→14:00)
[2022-12-08 06:38] LABS: BASO % 0.6 % (0.0-1.0); EOS # 0.3 10^3/uL (0.0-0.5); EOS % 6.4 % (0.0-3.0); HEMATOCRIT 23.4 % (36.0-47.0); HEMOGLOBIN 7.9 g/dl (12.0-15.5); LYMPH # 0.5 10^3/uL (1.5-5.0); LYMPH % 9.6 % (24.0-44.0); MEAN CORPUSCULAR HEMOGLOBIN 28.7 pg (27.0-33.0); MEAN CORPUSCULAR HGB CONC 33.8 g/dl (32.0-36.5); MEAN CORPUSCULAR VOLUME 85.1 fl (80.0-96.0); MONO # 0.5 10^3/uL (0.0-0.8); MONO % 10.6 % (2.0-8.0); NEUTROPHILS # 3.4 10^3/uL (1.5-8.5); NEUTROPHILS % 72.2 % (36.0-66.0); RED BLOOD COUNT 2.75 10^6/uL (4.00-5.40); WHITE BLOOD COUNT 4.7 10^3/uL (4.0-10.0)
[2022-12-08 06:43] LABS: PLATELET COUNT, AUTOMATED 75 10^3/uL (150-450)
[2022-12-08 06:59] LABS: CALCIUM LEVEL 7.9 MG/DL (8.3-10.6); CREATININE FOR GFR 3.08 MG/DL (0.55-1.30); GLOMERULAR FILTRATION RATE 15.9 (>39); POTASSIUM SERUM 4.2 MMOL/L (3.5-5.1)
[2022-12-08 08:00] VITALS: BP 133/60; TEMP 97.8; O2SAT 100
[2022-12-08] MEDS: LACTULOSE 20GM/30ML SYRUP UDC PO SCH (08:30)
[2022-12-08] MEDS: rifAXIMin 550 MG TAB (XIFAXAN) PO SCH (08:30)
[2022-12-08] MEDS: SPIRONOLACTONE 50 MG TAB PO SCH (08:30)
[2022-12-08] MEDS: LEVEMIR (INSULIN DETEMIR) 1 UNITS/0.01ML SC SCH (08:31)
[2022-12-08] MEDS: SUCRALFATE SUSP 1GM/10ML UD PO SCH ×2 (08:31→12:34)
[2022-12-08] MEDS: PANTOPRAZOLE 40MG VIAL IV SCH (08:31)
[2022-12-08] MEDS: INSULIN LISPRO (NovoLOG) PER UNIT SC SCH ×2 (08:34→12:34)
[2022-12-08 11:31] VITALS: BP 141/64; TEMP 97.3; O2SAT 100
[2022-12-08] MEDS ORDERED: CIPR250T3 PO ×2 (13:06→13:16)
== END 2022-12-08 14:49 | disposition home or self-care (01) | DRG 368 ==
LOC: M ED 12:25 → M ED INP 17:58 → ENRESERV 19:44 → M PCU 21:24
PROVIDERS: ADMIT Internal Medicine; ATTEND Internal Medicine
DX: I85.11 Secondary esophageal varices with bleeding (principal); I50.33 Acute on chronic diastolic (congestive) heart failure; N17.9 Acute kidney failure, unspecified; K92.2 Gastrointestinal hemorrhage, unspecified; N18.4 Chronic kidney disease, stage 4 (severe); I13.0 Hypertensive heart and chronic kidney disease with heart failure and stage 1 through stage 4 chronic kidney disease, or unspecified chronic kidney disease; D62 Acute posthemorrhagic anemia; K92.0 Hematemesis; K75.81 Nonalcoholic steatohepatitis (NASH); K21.9 Gastro-esophageal reflux disease without esophagitis; Z66 Do not resuscitate; Z79.4 Long term (current) use of insulin; Z79.899 Other long term (current) drug therapy; Z88.1 Allergy status to other antibiotic agents; Z88.2 Allergy status to sulfonamides; Z91.018 Allergy to other foods; Z20.822 Contact with and (suspected) exposure to COVID-19; I35.0 Nonrheumatic aortic (valve) stenosis; F39 Unspecified mood [affective] disorder; D63.1 Anemia in chronic kidney disease; I27.20 Pulmonary hypertension, unspecified

== ENCOUNTER → 2023-01-12 | Outpatient (REF) | payer MEDICARE, OTHER ==
[~2023-01-12] MED LIST changes: +CIPR250T3 PO; +NOVOINJ3 SQ; +TRES100I SC; +[UNRECOGNIZED DRUG - CODE] TOP
[2023-01-12 15:00] LABS: BASO % 0.5 % (0.0-1.0); EOS # 0.2 10^3/uL (0.0-0.5); EOS % 2.6 % (0.0-3.0); HEMATOCRIT 24.9 % (36.0-47.0); HEMOGLOBIN 8.4 g/dl (12.0-15.5); LYMPH # 0.3 10^3/uL (1.5-5.0); LYMPH % 3.9 % (24.0-44.0); MEAN CORPUSCULAR HEMOGLOBIN 28.8 pg (27.0-33.0); MEAN CORPUSCULAR HGB CONC 33.7 g/dl (32.0-36.5); MEAN CORPUSCULAR VOLUME 85.3 fl (80.0-96.0); MONO # 0.5 10^3/uL (0.0-0.8); MONO % 6.7 % (2.0-8.0); NEUTROPHILS # 6.6 10^3/uL (1.5-8.5); NEUTROPHILS % 85.8 % (36.0-66.0); RED BLOOD COUNT 2.92 10^6/uL (4.00-5.40); WHITE BLOOD COUNT 7.7 10^3/uL (4.0-10.0)
[2023-01-12 15:02] LABS: PLATELET COUNT, AUTOMATED 82 10^3/uL (150-450)
[2023-01-12 15:10] LABS: INR 1.39; PARTIAL THROMBOPLASTIN TIME 29.3 SECONDS (24.8-34.2); PROTHROMBIN TIME 16.7 SECONDS (12.5-14.5)
[2023-01-12 15:16] LABS: ALBUMIN 2.7 G/DL (3.2-5.2); BILIRUBIN,TOTAL 2.1 MG/DL (0.3-1.2); CALCIUM LEVEL 8.6 MG/DL (8.3-10.6); CREATININE FOR GFR 3.53 MG/DL (0.55-1.30); GLOMERULAR FILTRATION RATE 13.5 (>39); POTASSIUM SERUM 4.1 MMOL/L (3.5-5.1); TOTAL PROTEIN 4.9 G/DL (5.7-8.2)
== END ==
LOC: M LAB REF 14:37
PROVIDERS: ATTEND Internal Medicine Gastroenterology
DX: K74.60 Unspecified cirrhosis of liver (principal)

== ENCOUNTER 2023-01-30 07:19 | Outpatient (CLI) | payer MEDICARE, OTHER ==
[~2023-01-30] VITALS: Ht 167.6 cm; Wt 102.5 kg
[~2023-01-30 07:19] MED LIST changes: -CEFD300C41 PO; +CEFD300C42 PO
[2023-01-30 07:30] VITALS: BP 122/64; O2SAT 100
[2023-01-30 10:00] VITALS: BP 128/66; TEMP 97; O2SAT 100
[2023-01-30 10:25] VITALS: BP 130/68; TEMP 97; O2SAT 97
[2023-01-30 11:25] VITALS: BP 133/64; TEMP 97.2; O2SAT 100
[2023-01-30 12:30] VITALS: BP 131/60; TEMP 97.3; O2SAT 100
[2023-01-30 14:30] VITALS: BP 142/62; O2SAT 100
== END 2023-01-30 14:30 ==
LOC: M INFU 07:19
PROVIDERS: ATTEND Family Medicine
DX: D64.9 Anemia, unspecified (principal); Z88.1 Allergy status to other antibiotic agents; Z88.2 Allergy status to sulfonamides; Z91.018 Allergy to other foods
CPT/HCPCS: 36430; 86850; 86900; 86901; 86920; P9016